=== PATIENT | female | born 1950 | race Caucasian/White ===

== ENCOUNTER → 2020-06-23 11:43 | Outpatient (BNVA) | payer MEDICARE, SELFPAY | PROVIDERS: PCP Family Medicine; Visit Provider Internal Medicine Gastroenterology | DX: R19.4 Change in bowel habit (principal); R13.10 Dysphagia, unspecified; R63.0 Anorexia | CPT/HCPCS: 99212 ==

== ENCOUNTER 2020-07-11 10:10 | Day surgery (SDC) | payer MEDICARE, SELFPAY ==
--- NOTE | 2020-07-10 12:03 | P.CONAN_ITS ---
Documented by User: Ricarda Hinton 07/10/20 12:07 HPI - Anesthesia Eval Consult details Narrative: 70yo F for Upper Endoscopy and Colonoscopy [facility] Past Medical History Medical History Asthma Dysphagia Migraine REJI on CPAP Peripheral neuropathy Sclerosing mesenteritis Sjogren's syndrome SLE (systemic lupus erythematosus) Small fiber neuropathy Family History Family History (Updated 06/23/20 @ 09:25 by Zarina Hodgson MD) Family/Other No problems noted. Surgical History Surgical History (Updated 07/10/20 @ 12:05 by Ricarda Hinton) S/P appendectomy Social History Social History Alcohol intake: never Smoking Status: Never smoker Use of substances other than those prescribed or required for medical reasons: No Have you been hit, kicked, punched, or otherwise hurt by someone within the past year? If so, by whom?: No Advance Directives: No Advance Directives Information Provided: No Meds Allergies Allergy/AdvReac Type Severity Reaction Status Date / Time No Known Allergies Allergy Verified 06/23/20 09:50 Exam Exam Date and Time: July 10, 2020 1203 Assessment and Plan Assessment Anesthesia Assessment: Chart Reviewed Documented by User: Ya Gou 07/11/20 11:16 [facility] Past Medical History Medical History Asthma Dysphagia Migraine REJI on CPAP Peripheral neuropathy Sclerosing mesenteritis Sjogren's syndrome SLE (systemic lupus erythematosus) Small fiber neuropathy Family History Family History (Updated 06/23/20 @ 09:25 by Zarina Hodgson MD) Family/Other No problems noted. Surgical History Surgical History (Updated 07/10/20 @ 12:05 by Ricarda Hinton) S/P appendectomy Social History Social History Alcohol intake: never Smoking Status: Never smoker Use of substances other than those prescribed or required for medical reasons: No Have you been hit, kicked, punched, or otherwise hurt by someone within the past year? If so, by whom?: No Advance Directives: No Advance Directives Information Provided: No Meds Allergies Allergy/AdvReac Type Severity Reaction Status Date / Time No Known Allergies Allergy Verified 06/23/20 09:50 Exam Airway Mallampati Class: I TM Dist: >3cm Neck ROM: Full Heart: RRR Lungs: CTA Assessment and Plan Assessment Anesthesia Assessment: Anesthesia Plan Discussed and Chart Reviewed Final Anesthetic Review NPO: Yes ASA Class: III Final Preanesthetic Review: Meds/Allgs Chart Reviewed, Consent Obtained/Reviewed and Anes Risks/Benef Reviewed Patient Risk: Intermediate Procedure Risk: Intermediate Anesthetic Plan Anesthetic Plan: MAC: Disposition: Standard PACU
[2020-07-11 11:08] VITALS: BP 115/71; PULSE 64; RESP 18; TEMP 36.3; O2SAT 96
--- NOTE | 2020-07-11 11:17 | MHC.SHP ---
Pre-Procedural Eval Section B Chief Complaint: dysphagia,change in bowel habit Relevant Social History: None Present Medications: see Short Stay Collaborative assessment Medical History: Significant History (hx of asthma, migraine, Kassy-on cpap, peripheral neuropathy, SLE,sjogrens syndrome, small fiber neuropathy, ) History of Previous Operations: Relevant previous surgery/procedure and date(s) (appendectomy, and c section) Allergies: Allergies Allergy/AdvReac Type Severity Reaction Status Date / Time No Known Allergies Allergy Verified 06/23/20 09:50 Review of Systems Sugical H&P ROS: Negative: Constitution, Cardiovascular, Respiratory, Neurological, Psychiatric, Hem-Onc, Allergic/Immunologic, Gastrointestinal, Genitourinary, Musculoskeletal, Integumentary, Endocrine and Eyes/Ears/Nose/Throat Exam Surgical H&P Exam: Normal: HEENT, Normal: Heart, Normal: Lungs, Normal: Extremities, Normal: Abdomen, Normal: Skin and Normal: Neurological Plan Diagnosis/Plan: Unchanged Patient has been examined and remains a candidate for the planned procedure
--- NOTE | 2020-07-11 11:18 | PM.OP ---
Brief Operative Note Date of Service: 07/11/20 Pre-op diagnosis: dysphagia, altered bowel habits Post-op diagnosis: same Procedure: see op note Surgeon: Zairna Hodgson MD Anesthesia: MAC Estimated blood loss (mL): 0 Condition: stable Disposition: PACU
--- NOTE | 2020-07-11 11:19 | P.OP_ITS ---
Operative Note Operative Note Date of Service: 07/11/20 Narrative: Operative Information Procedure Description: EGD, Colonoscopy FLEXIBLE TRANSORAL UPPER GASTROINTESTINAL ENDOSCOPY AND COLONOSCOPY PROCEDURE NOTE UPPER ENDOSCOPY Consent: Indications for the procedure and potential complications of bleeding, perforation, reaction to medications and missed diagnosis were discussed with the patient and informed consent was obtained. Instrument: Olympus GIF H 190 J mid size upper endoscope Monitoring: Vital signs and clinical assessment, continuous EKG monitoring, Pulse oximetry, Carbon Dioxide monitoring and blood pressure monitoring were done throughout the procedure. Procedure: The patient was placed in the left lateral decubitis position and pre-procedure medications were administered and a bite block was placed. The endoscope was inserted into the mouth and advanced under direct vision to the third part of duodenum. A careful inspection was made as the upper endoscope was withdrawn including a retroflexed examination of the proximal stomach; Findings and interventions are described below. Findings: Larynx:normal Esophagus: GE junction at 37 cm, diaphragm hiatus at 37 cm, mild esophagitis, random esophageal and GEJ bx taken. 20 mm balloon stretched at GEJ and mid esophagus and upper esophagus. Small tear noted in GEJ. Stomach: Erosive gastritis. Biopsies were obtained. Grade 2 flap valve on retroflexed examination of the cardia. Duodenum: Bulbar duodenitis Intervention: Biopsies as noted above COLONOSCOPY Instrument: Olympus variable stiffness pediatric scope 190L Colonoscopy Monitoring: Vital signs and clinical assessment, continuous EKG monitoring, Pulse oximetry, Carbon Dioxide monitoring and blood pressure monitoring were done throughout the procedure. Colon withdrawal time was 9 minutes. Procedure: The patient was placed in the left lateral decubitis position and pre-procedure medications were administered. After a digital rectal examination of the ano-rectum, the video colonoscope was inserted into the rectum and advanced through the colon to the cecum/TI. The colonoscope was slowly withdrawn in a retrograde panoramic fashion and the colon mucosa was carefully examined including a retroflexed view of the rectum. Findings and interventions are described below. Procedure Difficulty:moderate difficulty, redundant colon, pressure applied Williamson diverticulosis severe in transverse Findings: Random colon bx taken, mild melanosis coli in rectum and left colon Terminal Ileum-normal, bx taken Cecum:normal Ascending Colon: normal Transverse Colon -normal Descending Colon:4-5 sessile polyp removed with forceps Sigmoid Colon: normal Rectum: Retroflexion with small internal hemorrhoids, grade I Anorectum - normal Colon preparation: [place] Bowel Preparation Scale Right colon; 2 Transverse colon: 3 Left colon; 2 (0 = Unprepared colon segment with mucosa not seen due to solid stool that cannot be cleared. 1 = Portion of mucosa of the colon segment seen, but other areas of the colon segment not well seen due to staining, residual stool and/or opaque liquid. 2 = Minor amount of residual staining, small fragments of stool and/or opaque liquid, but mucosa of colon segment seen well. 3 = Entire mucosa of colon segment seen well with no residual staining, small fragments of stool or opaque liquid) Impression and Post Procedure Diagnosis: Endoscopy Findings: esophagitis erosive gastritis duodenitis esophageal stricture Colonoscopy Findings: internal hemorrhoids diverticulosis polyp Plan: Await Pathology results Repeat Colonoscopy in 5 years if adenoma polyp, 10 yrs if hyperplastic or earlier if clinically indicated High fiber diet leaflet avoid straining at stool, epsom salts and sitz bath, anusol supps or cream check NSAID and PPi hx, specimens sent for staining for amyloid, mast cell and IGg4 Above findings were reviewed with the patient and relevant handouts were provided if indicated.
[2020-07-11 11:21] VITALS: BMI 23.3
[2020-07-11 12:30] VITALS: BP 106/65; PULSE 64; RESP 14; TEMP 36.4; O2SAT 99
[2020-07-11 12:45] VITALS: BP 104/71; PULSE 62; RESP 16; TEMP 36.4; O2SAT 99
--- NOTE | 2020-07-11 13:09 | HO.POSTANES ---
Post Anesthesia Evaluation Post Anesthesia Evaluation Vital Signs: Vital Signs Temp Pulse Resp BP Pulse Ox 07/11/20 12:45 97.5 F 62 16 104/71 99 07/11/20 12:30 97.5 F 64 14 106/65 99 07/11/20 11:08 97.4 F 64 18 115/71 96 Anesthesia: Monitored Mental Status: Awake Pain Control: Satisfactory Nausea/Vomiting: None Hydration: Adequate Anesthesia-Related Issues: No Anes. Related Issues
== END 2020-07-11 13:49 | disposition home or self-care (01) ==
PROVIDERS: PCP Family Medicine; Visit Provider Internal Medicine Gastroenterology
PROC: (CPT 43239; principal; 2020-07-11 11:30)
DX: K22.2 Esophageal obstruction (principal); K20.90 Esophagitis, unspecified without bleeding; K25.9 Gastric ulcer, unspecified as acute or chronic, without hemorrhage or perforation; K29.80 Duodenitis without bleeding; R19.4 Change in bowel habit; K57.30 Diverticulosis of large intestine without perforation or abscess without bleeding; K63.5 Polyp of colon; K64.0 First degree hemorrhoids; K63.89 Other specified diseases of intestine; Q43.8 Other specified congenital malformations of intestine; G62.9 Polyneuropathy, unspecified
CPT/HCPCS: 43239; 43249; 45380; 88305; 88313; 88341; 88342; C1726; J2250; J2405

== ENCOUNTER → 2020-08-25 10:16 | Outpatient (BNVA) | payer MEDICARE, SELFPAY | PROVIDERS: PCP Family Medicine; Visit Provider Internal Medicine Gastroenterology | DX: Z13.89 Encounter for screening for other disorder (principal) | CPT/HCPCS: Q3014 ==

== ENCOUNTER → 2020-11-06 10:10 | Outpatient (BNVA) | payer MEDICARE, SELFPAY | PROVIDERS: PCP Family Medicine; Visit Provider Internal Medicine Gastroenterology | DX: Z13.89 Encounter for screening for other disorder (principal) | CPT/HCPCS: Q3014 ==

== ENCOUNTER → 2020-12-26 10:15 | Outpatient (BNVA) | payer MEDICARE, SELFPAY | PROVIDERS: PCP Family Medicine; Visit Provider Internal Medicine Gastroenterology | CPT/HCPCS: Q3014 ==

== ENCOUNTER → 2021-02-27 08:10 | Outpatient (REF) | payer MEDICARE, SELFPAY ==
--- NOTE | ~2021-02-27 | NM_ITS ---
EXAMINATION: RADIONUCLIDE SOLID FOOD GASTRIC EMPTYING 4-HOUR STUDY CLINICAL INFORMATION: Early satiety. COMPARISON: No previous imaging studies are available for comparison. TECHNIQUE: A standard meal consisting of 4 oz of Egg Beaters brand tagged was 1.0 mCi Tc-99m Sulfur Colloid, 8 oz water and 2 slices of toast with jelly was administered orally to the patient. Images were obtained using a dual head gamma camera in the anterior and posterior projections over of the stomach immediately post ingestion and at hourly intervals up to 3 hours post ingestion. Images were not obtained at 4 hours due to the minimal retention at 3 hours. The anterior and posterior counts at each time interval were averaged using the geometric mean and expressed as percentage of the immediate post ingestion counts. FINDINGS: There is good visualization of activity in the stomach immediately post ingestion. As the study progresses, there is good clearance of activity from the stomach and visualization of progressively increasing small bowel activity. By the end of the study, there is almost no retention noted in the stomach. Retention in the stomach at each time interval was: 1 hour 54% (normal 37%-90%) 2 hours 6% (normal 30%-60%) 3 hours 1% 4 hours (Not Obtained) (normal 0%-10%) NM/NM gastric emptying study IMPRESSION: Normal solid food gastric emptying study.
== END ==
LOC: HO.NUCMED 08:10
PROVIDERS: PCP Family Medicine; Visit Provider Internal Medicine Gastroenterology
DX: R68.81 Early satiety (principal)
CPT/HCPCS: 78264; A9541

== ENCOUNTER → 2021-05-01 09:06 | Outpatient (BNVA) | payer MEDICARE, SELFPAY | PROVIDERS: PCP Family Medicine; Referring Provider Family Medicine; Visit Provider Internal Medicine Gastroenterology | DX: K52.9 Noninfective gastroenteritis and colitis, unspecified (principal) | CPT/HCPCS: 99212 ==

== ENCOUNTER 2021-05-17 15:19 | Outpatient (REF) | payer MEDICARE, SELFPAY ==
[2021-05-23 00:06] LABS: Calprotectin, Fecal <5 mcg/g
[2021-05-23 22:21] LABS: Pancreatic Elastase-1 >500 mcg/g
== END 2021-05-17 15:20 | disposition home or self-care (01) ==
LOC: HO.LNP 15:19
PROVIDERS: Visit Provider Internal Medicine Gastroenterology
DX: K52.9 Noninfective gastroenteritis and colitis, unspecified (principal); R19.4 Change in bowel habit
CPT/HCPCS: 82656; 83993

== ENCOUNTER 2021-06-12 13:41 | Outpatient (REF) | payer MEDICARE, SELFPAY ==
--- NOTE | ~2021-06-12 | CT_ITS ---
EXAMINATION: CT ENTEROGRAPHY ABDOMEN AND PELVIS WITH CONTRAST CLINICAL INFORMATION: Periumbilical pain COMPARISON: None TECHNIQUE: Study performed with oral VoLumen (1350 mL) and 480 mL of water to distend the abdomen. The patient was injected with 85 mL Omnipaque 350 intravenous contrast which was administered without adverse effect. Coronal and sagittal reformatted images were obtained at the technologist's workstation. This CT examination was performed using dose optimization techniques as appropriate, variously including the following: *Automated exposure control *Adjustment of mA and/or kV according to patient size (this includes techniques or standardized protocols for targeted exams where dose is matched to indication/reason for exam; i.e. extremities or head) *Use of iterative reconstruction technique DLP: 262 mGy-cm FINDINGS: GASTROINTESTINAL FINDINGS: Stomach: The stomach is very distended. The stomach is otherwise normal in appearance. Small intestine: Satisfactorily distended and normal in appearance. Large intestine: Well-distended. There is diverticulosis of the colon. No evidence of diverticulitis or colitis is seen.. No perirectal changes demonstrated. The appendix is not seen. Additional findings: No abnormal enhancement of the vasa recta or significant mesenteric or retroperitoneal lymphadenopathy is seen. No abdominal abscess or fistulous tract demonstrated. ABDOMINAL AND PELVIC CT FINDINGS: Liver, gallbladder, biliary tract: Normal Pancreas: Normal Spleen: Normal Adrenal glands and kidneys: There is a small cyst in the lower pole of the left kidney measuring 5 mm. No imaging follow-up needed. The kidneys are otherwise unremarkable. Ureters and bladder: There is a pessary in the pelvis. The bladder is not optimally distended. The uterus and adnexa are unremarkable. Lymphovascular structures: There are small small bowel mesentery lymph nodes and mild stranding of the small bowel mesentery fat. No enlarged lymph nodes are seen. No ascites. Bones: There is mild degenerative spondylosis of the spine. Lung bases: Normal. CT/CT enterography IMPRESSION: Very distended stomach. Diverticulosis of the colon. Shotty small bowel mesentery lymphadenopathy and mild stranding of the small bowel mesentery fat. Small left renal cyst. Appendix not seen.
[2021-06-12 14:41] LABS: Blood Urea Nitrogen 12 mg/dL (9-16); Estimated Glomerular Filt Rate 55
[2021-06-12] MEDS: iohexoL 350 MG/ML 100 ML INFUS..BTL IV (16:36)
[2021-06-12] MEDS: Sorbitol/Mannit/Xanth Imaging 500 ML LIQUID 1500 ML PO (16:38)
== END 2021-06-12 13:42 | disposition home or self-care (01) ==
LOC: HO.US 13:41
PROVIDERS: PCP Family Medicine; Visit Provider Internal Medicine Gastroenterology
DX: R13.10 Dysphagia, unspecified (principal); R10.33 Periumbilical pain; R19.4 Change in bowel habit; K22.2 Esophageal obstruction
CPT/HCPCS: 36415; 74177; 82565; 84520; Q9967

== ENCOUNTER → 2021-07-26 11:11 | Outpatient (BNVA) | payer MEDICARE, SELFPAY | PROVIDERS: PCP Family Medicine; Visit Provider Surgery | DX: K65.4 Sclerosing mesenteritis (principal) | CPT/HCPCS: 99202 ==

== ENCOUNTER 2021-08-02 10:23 | Day surgery (SDC) | payer MEDICARE, SELFPAY ==
[2021-07-26 13:39] VITALS: BMI 22.6
--- NOTE | 2021-08-01 10:38 | HO.ANESPROP2 ---
Documented by User: Ricarda Hinton NP 08/01/21 10:39 HPI - Anesthesia Eval Consult details Narrative: 71yo F for Upper Endoscopy PMFSH Active Problems Active Problems: All Active Problems (Updated 06/15/21 @ 19:47 by Zarina Hodgson MD) Sclerosing mesenteritis (Acute) Dysphagia (Acute) Esophageal stricture (Acute) Enteritis (Acute) Poor appetite (Acute) Altered bowel habits (Acute) Past Medical History Medical History Asthma Dysphagia Fatty liver Migraine REJI on CPAP Peripheral neuropathy Sclerosing mesenteritis Sjogren's syndrome SLE (systemic lupus erythematosus) Small fiber neuropathy Family History Family History Paternal Uncle No problems noted. Mother Hx of osteoporosis Father Hx of ulcer disease Surgical History Surgical History History of History of colonoscopy Hx of detached retina repair Hx of endoscopy S/P appendectomy Social History Social History Household Members: Children Alcohol intake: current Alcohol intake frequency: does not drink Patient Tobacco Use Status: Tobacco use Unknown Advance Directives Date on File: 07/11/20 Meds Allergies Allergy/AdvReac Type Severity Reaction Status Date / Time duloxetine [From Cymbalta] Allergy Hives Verified 08/02/21 11:19 Latex, Natural Rubber Allergy Itching Verified 08/02/21 11:19 penicillin G Allergy Hives Verified 08/02/21 11:19 sumatriptan [From Imitrex] Allergy Hives Verified 08/02/21 11:19 Home Medications Medication Instructions Recorded Confirmed Last Taken Type bupropion HCl 300 mg 24 hr tablet, 300 mg PO QAM 12/26/20 Unknown History extended release (Wellbutrin XL) estradiol 1 g VAGINAL 2XW 12/26/20 Unknown History hydroxychloroquine 200 mg tablet 200 mg PO DAILY 12/26/20 07/26/21 Unknown History (Plaquenil) lorazepam 1 mg tablet 1 mg PO BID 12/26/20 Unknown History zolpidem 10 mg tablet 10 mg PO BEDTIME PRN 12/26/20 Unknown History bupropion HCl 150 mg 24 hr tablet, 150 mg PO QAM 05/01/21 07/26/21 Unknown History extended release lorazepam 0.5 mg tablet 0.5 mg PO BID 05/01/21 Unknown History Exam Exam Date and Time: August 01, 2021 1038 Height,Weight and Vital Signs: Height 5 ft 2 in Weight 56.245 kg Pertinent Lab Results Pertinent Lab Results: Laboratory Tests 06/12/21 14:01 BUN 12 Creatinine 1.00 Assessment and Plan Assessment Anesthesia Assessment: Chart Reviewed Documented by User: Mukesh Reyes MD 08/02/21 15:00 PMFSH Past Medical History Medical History Asthma Dysphagia Fatty liver Migraine REJI on CPAP Peripheral neuropathy Sclerosing mesenteritis Sjogren's syndrome SLE (systemic lupus erythematosus) Small fiber neuropathy Family History Family History Paternal Uncle No problems noted. Mother Hx of osteoporosis Father Hx of ulcer disease Family history of problems with anesthesia: No Surgical History Surgical History History of History of colonoscopy Hx of detached retina repair Hx of endoscopy S/P appendectomy History of Problems with Anesthesia: No Social History Social History Household Members: Children Alcohol intake: current Alcohol intake frequency: does not drink Patient Tobacco Use Status: Tobacco use Unknown Advance Directives Date on File: 07/11/20 Meds Allergies Allergy/AdvReac Type Severity Reaction Status Date / Time duloxetine [From Cymbalta] Allergy Hives Verified 08/02/21 11:19 Latex, Natural Rubber Allergy Itching Verified 08/02/21 11:19 penicillin G Allergy Hives Verified 08/02/21 11:19 sumatriptan [From Imitrex] Allergy Hives Verified 08/02/21 11:19 Home Medications Medication Instructions Recorded Confirmed Last Taken Type bupropion HCl 300 mg 24 hr tablet, 300 mg PO QAM 12/26/20 Unknown History extended release (Wellbutrin XL) estradiol 1 g VAGINAL 2XW 12/26/20 Unknown History hydroxychloroquine 200 mg tablet 200 mg PO DAILY 12/26/20 07/26/21 Unknown History (Plaquenil) lorazepam 1 mg tablet 1 mg PO BID 12/26/20 Unknown History zolpidem 10 mg tablet 10 mg PO BEDTIME PRN 12/26/20 Unknown History bupropion HCl 150 mg 24 hr tablet, 150 mg PO QAM 05/01/21 07/26/21 Unknown History extended release lorazepam 0.5 mg tablet 0.5 mg PO BID 05/01/21 Unknown History Exam Airway Mallampati Class: II TM Dist: >3cm Neck ROM: Full Loose/Missing/Broken Teeth: Yes (temporary crown) Assessment and Plan Assessment Anesthesia Assessment: Anesthesia Plan Discussed Final Anesthetic Review Family History of Problems with Anesthesia: No History of Problems with Anesthesia: No NPO: Yes ASA Class: III Final Preanesthetic Review: No Changes in Pt Med Stat, Meds/Allgs Chart Reviewed, Consent Obtained/Reviewed and Anes Risks/Benef Reviewed Patient Risk: Low Procedure Risk: Low Anesthetic Plan Anesthetic Plan: MAC: Disposition: Standard PACU
--- NOTE | 2021-08-02 11:44 | P.HPSUR_ITS ---
Pre-Procedural Eval Section A Date of Service: 08/02/21 Section B Chief Complaint: noninfective gastroenteritis and colitis Details of Present Illness: ABDOMINAL PAIN Relevant Family History (Specify if Yes): No Relevant Social History: None Present Medications: see Short Stay Collaborative assessment Medical History: Significant History (Asthma Dysphagia Migraine REJI on CPAP Pe ripheral neuropathy Sclerosing mesenteritis Sjogren's syndrome SLE (systemic lupus erythematosus) Small fiber neuropathy) History of Previous Operations: Relevant previous surgery/procedure and date(s) (History of History of colonoscopy Hx of endoscopy S/P appendectomy) Allergies: Allergies Allergy/AdvReac Type Severity Reaction Status Date / Time duloxetine [From Cymbalta] Allergy Hives Verified 08/02/21 11:19 Latex, Natural Rubber Allergy Itching Verified 08/02/21 11:19 penicillin G Allergy Hives Verified 08/02/21 11:19 sumatriptan [From Imitrex] Allergy Hives Verified 08/02/21 11:19 Review of Systems Sugical H&P ROS: Negative: Constitution, Cardiovascular, Respiratory, Neurological, Psychiatric, Hem-Onc, Allergic/Immunologic, Gastrointestinal, Genitourinary, Musculoskeletal, Integumentary, Endocrine and Eyes/Ears/Nose/Thro at Exam Surgical H&P Exam: Normal: HEENT, Normal: Heart, Normal: Lungs, Normal: Extremities, Normal: Abdomen, Normal: Skin and Normal: Neurological Plan Diagnosis/Plan: Unchanged I have reviewed the history and physical and performed a pertinent physical examination on my patient. No changes have occurred unless specified.
[2021-08-02 12:11] VITALS: BP 110/71; PULSE 60; RESP 16; TEMP 36.4; O2SAT 98
[2021-08-02] MEDS: Lactated Ringers 1,000 ML 100 ML IVCONT (12:12)
--- NOTE | 2021-08-02 12:55 | PM.OP ---
Brief Operative Note Date of Service: 08/02/21 Pre-op diagnosis: ABDOMINAL Pain Post-op diagnosis: same Procedure: see op note Surgeon: Zarina Hodgson MD Anesthesia: MAC Was an Financial Aid Coordinator used for this Procedure?: No Estimated blood loss (mL): 0 Condition: stable Disposition: PACU
--- NOTE | 2021-08-02 12:56 | W.PM.OPN ---
Operative Note Operative Note Date of Service: 08/02/21 Narrative: Procedure Description: EGD FLEXIBLE TRANSORAL UPPER GASTROINTESTINAL ENDOSCOPY UPPER ENDOSCOPY Consent: Indications for the procedure and potential complications of bleeding, perforation, reaction to medications and missed diagnosis were discussed with the patient and informed consent was obtained. Instrument: Olympus GIF H 190 J mid size upper endoscope Monitoring: Vital signs and clinical assessment, continuous EKG monitoring, Pulse oximetry, Carbon Dioxide monitoring and blood pressure monitoring were done throughout the procedure. Procedure: The patient was placed in the left lateral decubitis position and pre-procedure medications were administered and a bite block was placed. The endoscope was inserted into the mouth and advanced under direct vision to the third part of duodenum. A careful inspection was made as the upper endoscope was withdrawn including a retroflexed examination of the proximal stomach; Findings and interventions are described below. Findings: Larynx:normal Esophagus: GE junction at 37 cm, diaphragm hiatus at 37 cm, mild esophagitis, bx taken from GEJ and random esophagus in separate jars Stomach: Patchy gastric erythema. Biopsies were obtained. Grade 2 flap valve on retroflexed examination of the cardia. Duodenum: Mild bulbar duodenitis , bx taken Intervention: Biopsies as noted above, staining for mast cell, amyloid and IgG4 Impression/Findings: esophagitis gastritis duodenitis PLAN: await pathology
[2021-08-02 13:04] VITALS: BP 99/52; PULSE 73; RESP 15; TEMP 36.3; O2SAT 99
[2021-08-02 13:19] VITALS: BP 98/60; PULSE 73; RESP 16; O2SAT 97
[2021-08-02 13:34] VITALS: BP 115/77; PULSE 64; RESP 16; TEMP 36.3; O2SAT 97
== END 2021-08-02 14:15 | disposition home or self-care (01) ==
PROVIDERS: PCP Family Medicine; Visit Provider Internal Medicine Gastroenterology
PROC: 0DJ08ZZ Inspection of Upper Intestinal Tract, Via Natural or Artificial Opening Endoscopic (ICD-10-PCS; CPT 43235; principal; 2021-08-02 12:20)
DX: K52.9 Noninfective gastroenteritis and colitis, unspecified (principal); K29.50 Unspecified chronic gastritis without bleeding; K29.80 Duodenitis without bleeding; K20.90 Esophagitis, unspecified without bleeding; K44.9 Diaphragmatic hernia without obstruction or gangrene; G47.33 Obstructive sleep apnea (adult) (pediatric); G62.89 Other specified polyneuropathies; G43.909 Migraine, unspecified, not intractable, without status migrainosus; J45.909 Unspecified asthma, uncomplicated; M32.9 Systemic lupus erythematosus, unspecified; M35.00 Sjogren syndrome, unspecified; Z99.89 Dependence on other enabling machines and devices; Z91.040 Latex allergy status
CPT/HCPCS: 43239; 88305; 88313; 88341; 88342

== ENCOUNTER → 2021-08-28 13:00 | Outpatient (BNVA) | payer MEDICARE, SELFPAY | PROVIDERS: PCP Family Medicine; Visit Provider Internal Medicine Gastroenterology | CPT/HCPCS: Q3014 ==

== ENCOUNTER → 2021-10-02 14:23 | Outpatient (BNVA) | payer MEDICARE, SELFPAY | PROVIDERS: PCP Family Medicine; Visit Provider Surgery | DX: K65.4 Sclerosing mesenteritis (principal) | CPT/HCPCS: 99212 ==

== ENCOUNTER → 2021-11-26 14:44 | Outpatient (BNVA) | payer MEDICARE, SELFPAY | PROVIDERS: PCP Family Medicine; Visit Provider Internal Medicine Gastroenterology | DX: R10.9 Unspecified abdominal pain (principal) | CPT/HCPCS: Q3014 ==

== ENCOUNTER → 2022-03-29 10:58 | Outpatient (BNVA) | payer MEDICARE, SELFPAY | PROVIDERS: PCP Family Medicine; Visit Provider Internal Medicine Gastroenterology | DX: R10.9 Unspecified abdominal pain (principal) | CPT/HCPCS: 99212 ==

== ENCOUNTER → 2022-08-02 10:29 | Outpatient (BNVA) | payer MEDICARE, SELFPAY | PROVIDERS: PCP Family Medicine; Visit Provider Internal Medicine Gastroenterology | DX: R10.9 Unspecified abdominal pain (principal); K31.84 Gastroparesis; G62.9 Polyneuropathy, unspecified; G90.1 Familial dysautonomia [Riley-Day] | CPT/HCPCS: Q3014 ==

== ENCOUNTER 2025-05-11 11:48 | Outpatient (REF) | payer MEDICARE, SELFPAY ==
--- OUTSIDE RECORDS SUMMARY | 2011-08-22 01:00 | XMS_ITS | Encounter Summary ---
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 Phone Unavailable Primary Care Provider Unavailabl e Encounter Details Date Type Department Care Team (Late st Contact Info) Description 08/22/2011 Hospital Encounter [facility],Outside Imaging [address] [place] [address] System, Provider Not In, PhD [facility] [address] [place] [address] Social History Tobacco Use Types Packs/Day Years Used Date Smoking Tobacco: Former Cigarettes 2 18.9 1 968 - 06/26/1986 Passive Smoke Exposure: Never Smokeless Tobacco: Never Alcohol Use Standard Drinks/Week Comments No 0 (1 standard drink = 0.6 oz pur e alcohol) Child or Family Care Answer Date Record ed Do you have problems with on e of the following making it difficult for you to work, study, or receive health care? Family care (i.e. spouse, parents, other family) 08/21/2023 Education Answer Date Recorded Are you interested in more education? Not on magdy e 12/13/2022 Are you concerned about learning? Not on file 12/13/2022 No 12/13/2022 No 12/13/2022 Food Answer Date Recorded Within the past 6 months we worried whether our food would run out before we got money to buy more. I choose not to answer 08/21/2023 Within the past 6 months the food we bought just didn't last and we didn't have enough money to get more. I choose not to answer 08/21/2023 Residential Stability Answer Date Recor ded What is your housing situation today? I have salo lopez 08/21/2023 How many times have you move d in the past 12 months? Zero (I did not move) 08/21/2023 Paying for Meds Answer Date Recorded Do you have trouble paying for medicines? I hanny se not to answer 08/21/2023 Paying Utility Bills Answer Date Record ed Do you have trouble paying your heating or elect ricity bill? Yes 08/21/2023 Transportation Answer Date Recorded Has the lack of transportati on kept you from medical appointments or from getting medications? No 08/21/2023 Digital Access Answer Date Recorded No 08/21/2023 Yes 08/21/2023 Do you have reliable internet access at home? Ye s 08/21/2023 Do you have a device (e.g., phone, tablet, computer) with a working camera? Yes 08/21/2023 Intimate Partner Violence Answer Date R ecorded Are you denied basic needs s uch as food, clothing, or medical care? No 09/14/2024 In the past 12 months have y ou been in a relationship with a person who hurts, threatens, or tries to control you? No 09/14/2024 Are you denied basic needs s uch as food, clothing, or medical care? No 09/14/2024 In the past 12 months have y ou been in a relationship with a person who hurts, threatens, or tries to control you? No 09/14/2024 Comments No Sex and Gender Information Value Date Recorded Sex Assigned at Female 09/05/2021 7:38 PM EST Legal Sex Female 10:36 PM EDT Gender Identity Female 07/31/2020 7:39 AM EST Sexual Orientation Straight 07/31/2020 7: 39 AM EST documented as of this encounter Functional Status * Calculated C-SSRS Risk Score (Lifetime/Recent) Answer Date of Assessment Author No Risk Indicated 09/14/2024 1:25 PM Amina Odonnell, RN * [place] Suicide Severity Rating Scale (Screener/Recent Self-Report) Question Answer Date of Assessment Author 1. Wish to be (Past 1 Month) No 025 1:25 PM Amina Odonnell, WENDI 2. Non-Specific Active Suici jenaro Thoughts (Past 1 Month) No 09/14/2024 1:25 PM Amina Odonnell RN 6. Suicidal Behavior (Lifetime) No 1:25 PM Amina Odonnell RN documented as of this encounter Plan of Treatment Upcoming Encounters Date Type Department Care Team (Latest Contact Info) Description 05/17/2025 1:30 PM EDT Office Visit [address] [address] Dahiana Fabian [address] [place] [address], [address] [place] [address] [email or web address] Charan Jon, PT 4 [place], [place] [id number] 05/24/2025 2:15 PM EDT Office Visit [address] [address] Dahiana Fabian [address] [place] [address], [address] [place] [address] [email or web address] Charan Jon, PT 4 [place], [place] [id number] 05/31/2025 2:15 PM EDT Office Visit [address] [address] Dahiana Fabian [address] [place] [address], [address] [place] [address] [email or web address] Charan Jon, PT 4 [place], [place] [id number] 06/06/2025 1:20 PM EDT Ancillary Procedure [facility] [address] [place] [address] [address]rd Floor, [address] [place] [address] Kiko Lackey MD [address] [facility], [address] [place] [address] 06/07/2025 2:15 PM EDT Office Visit [address] [address] [facility] [address], [address] [place] [address] [email or web address] Charan Jon, PT 4 [place] [address] 06/10/2025 4:00 PM EDT Office Visit [address] [address] [facility] [address], [address] [place] [address] [email or web address] 06/14/2025 2:15 PM EDT Office Visit [address] [address] [facility] [address], [address] [place] [address] [email or web address] Charan Jon, PT 4 [place] [address] 06/21/2025 2:15 PM EST Office Visit [address] [address] [facility], [address] [place] [address] [email or web address] Charan Jon, PT 4 [place] [address] 07/18/2025 2:30 PM EST Office Visit [facility] [address] [place] [address] Janina Donohue MD [address] [facility], [address] [place] [address] [email or web address] 07/26/[email or web address] 3:00 PM EST Ancillary Procedure [facility] [address]rd Floor, [address] [place] [address] Brennan Childers MD [address] [facility], [address] [place] [address] [email or web address] documented as of this encounter Procedures Procedure Name Priority Date/Time Associated Diagnosis Comments BI MAMMOGRAM OUTSIDE (NO INTERPRETATION) Routine 08/22/2011 12:00 AM EST documented in this encounter Results * Mammogram Outside (No Interpretation) (08/22/2011 12:00 AM EST) Narrative SYSTEMGENERATED, DOCUMENTATION - 02/13/2018 12:03 PM EDT This study is for PACS storage only and not for interpretation. us Provider Not In System PhD IMG OUTSIDE IMAGING W /OUT INTERPRETATION Final Result documented in this encounter Visit Diagnoses Not on filedocumented in this encounter Additional Health Concerns Infection Onset Date Last Indicated Resolved Time CoV-Risk 09/21/2024 09/21/2024 09/21/2024 2:57 PM EST COVID-19 09/21/2024 09/21/2024 10/12/2024 1:21 AM EST documented as of this encounter Additional Source Comments The information contained in this document represents components of the legal health record. It is not the complete legal health record.[facility]
--- OUTSIDE RECORDS SUMMARY | 2011-08-22 01:15 | XMS_ITS | Encounter Summary ---
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,Outside Imaging [address] [place] [address] System, Provider Not In, PhD [facility] 2 [place] [address] Social History Tobacco Use Types Packs/Day Years [...] Author No Risk Indicated 09/14/2024 1:25 PM EST Amina Dick, WENDI * [place] Suicide Severity Rating Scale (Screener/Recent Self-Report) Question Answer Date of Assessment Author 1. Wish to be (Past 1 Month) No 025 1:25 PM Amina Odonnell, WENDI 2. Non-Specific Active Suici jenaro Thoughts (Past 1 Month) No 09/14/2024 1:25 PM Amina Odonnell, WENDI 6. Suicidal Behavior (Lifetime) No 1:25 PM Amina Odonnell, WENDI documented as of this encounter Plan of Treatment Upcoming Encounters Date Type Department Care Team (Latest Contact Info) Description 05/17/2025 1:30 PM EDT Office Visit [address] [address] Dahiana Fabian [address] [place] [address], [address] [place] [address] [email or web address] Charan Jon, PT 4 [place], [place] [phone] [email or web address] 05/24/2025 2:15 PM EDT Office Visit [address] [address] Dahiana Fabian [address] [place] [address], [address] [place] [address] [email or web address] Charan Jon, PT 4 [place], [place] [id number] [email or web address] 05/31/2025 2:15 PM EDT Office Visit [address] [address] Dahiana Fabian [address] [place] [address], [address] [place] [address] [email or web address] Charan Jon, PT 4 [place], [place] [id number] [email or web address] 06/06/2025 1:20 PM EDT Ancillary Procedure [facility] [address] [place] [address] 3rd Floor, [address] [place], [place] [id number] Kiko Minor MD [address] [facility], [address] [place] [address] 06/07/2025 2:15 PM EDT Office Visit [address] [address] [facility] [address], [address] [place] [address] [email or web address] Charan Jon, PT 4 [place] [address] [email or web address] 06/10/2025 4:00 PM EDT Office Visit [address] [address] [address], [address] [place] [address] [email or web address] 06/14/2025 2:15 PM EDT Office Visit [address] [address], [address] [place] [address] [email or web address] Charan Jon, PT 4 [place] [address] 06/21/2025 2:15 PM EST Office Visit [address] [address] [address], [address] [place] [address] [email or web address] Charan Jon, PT 4 [place] [address] 07/18/2025 2:30 PM EST Office Visit [facility] [address] [place] [address] Janina Donohue MD [address] [facility], [address] [place] [address] [email or web address] 07/26/2025 3:00 PM EST Ancillary Procedure [facility] [address] 3[address], [address] [place] [address] Brennan Childers MD [address] [facility], [address] [place] [address] [email or web address] documented as of this encounter Procedures Procedure Name Priority Date/Time Associated Diagnosis Comments BI US BREAST OUTSIDE (NO INTERPRETATION) Routine 08/22/2011 12:15 AM EST documented in this encounter Results * US Breast Outside (No Interpretation) (08/22/2011 12:15 AM EST) Narrative SYSTEMGENERATED, DOCUMENTATION - 02/13/2018 12:04 PM EDT This study is for PACS [...] It is not the complete legal health record.[facility]
--- OUTSIDE RECORDS SUMMARY | 2025-05-05 13:45 | XMS_ITS | Encounter Summary ---
Author Organization [facility] Address [address] [place] [address] [place] [phone] Phone Care Team Providers Care Dough Molder Hand Name Role Phone Dahiana Fabian Primary Care Provider [phone] Clary Morgan MD Unavailable [phone] Reason for Visit * Auth/Cert (Routine) Specialty Diagnoses / Procedures Referred By Juana martinez Referred To Contact Referral ID Status Reason Start Date Expiration Date Visits Re quested Visits Authorized [id number] 1 1 Encounter Details Date Type Department Care Team (Latest Contact Info) Description 05/05/2025 1:45 PM EDT - 05/05/2025 11:59 PM EDT Hospital Encounter [facility], Bone Density - [address] [address] Janina Donohue MD [address] [facility], [address] [place] [address] [email or web address] Discharge Disposition: Home or Self Care Social History Tobacco Use Types Packs/Day Years [...] is your housing situation today? I have salorosalina lopez 08/21/2023 How many times have you [...] AM EST documented as of this encounter Medications at Time of Discharge albuterol 90 mcg/actuation inhaler Inhale 1 puff into the lungs every 4 (four) hours as needed for shortness of breath/dyspnea. atorvastatin (LIPITOR) 20 MG tablet Take 20 mg by mouth daily. buPROPion (WELLBUTRIN XL) 300 MG ER 24 hr tablet Take 300 mg by mouth daily. cholecalciferol (VITAMIN D3) 2,000 unit tabletIndications:V itamin D insufficiency Take 1 tablet (2,000 Units total) by mouth daily. 90 tablet 1 02/25/2025 diclofenac sodium (VOLTAREN) 1 % Gel Apply 2 g topically as needed. EPINEPHrine (EPIPEN 2-PIYUSH) 0.3 mg/0.3 mL auto-injector Inject 0.3 mL (0.3 mg total) into the muscle as needed for anaphylaxis. 2 each 1 12/21/2024 estradioL (ESTRACE) 0.01 % (0.1 mg/gram) vaginal cream Place 2 g vaginally every 7 days. finasteride (PROSCAR) 5 mg tablet Take 1 tablet by mouth as needed. 01/31/2025 gabapentin (NEURONTIN) 250 mg/5 mL (5 mL) SolnIndications:Scl erosing mesenteritis Take 2 mL (100 mg total) by mouth nightly at bedtime. 360 mL 11/15/2024 hydroxychloroquine (PLAQUENIL) 200 mg tabletIndications:O ther forms of systemic lupus erythematosus, unspecified organ involvement status,Sjogren's syndrome, with unspecified organ involvement TAKE ONE TABLET BY MOUTH EVERY DAY 90 tablet 3 09/27/2024 Lactobacillus acidophilus (PROBIOTIC ORAL) Take by mouth daily. LORazepam (ATIVAN) 1 MG tablet as needed. 02/23/2025 magnesium chloride 64 mg TbECIndications:uns ure strength Take by mouth daily. Indications: unsure strength Medication-Free Text Ultra thistle metroNIDAZOLE (METROCREAM) 0.75 % cream as needed. 01/25/2025 omega 7-rhc-yxu-fish oil (FISH OIL) 1,000 (120-180) mg Cap Take 2 capsules by mouth daily. omeprazole (PRILOSEC) 40 MG capsule TAKE 1 CAPSULE(40 MG) BY MOUTH DAILY 90 capsule 3 02/14/2025 QUERCETIN ORAL Take by mouth. R-LIPOIC ACID ORAL Take by mouth. valACYclovir (VALTREX) 1000 MG tabletIndications:R ecurrent oral herpes simplex Take 2 tabs (2000mg) x 1 day as soon as symptoms start. 6 tablet 3 12/01/2024 zolpidem (AMBIEN) 10 mg tabletIndications:P rimary insomnia TAKE 1 TABLET BY MOUTH DAILY AT BEDTIME NEEDED 05/20/2024 temazepam (RESTORIL) 15 mg capsule Take 2 capsules (30 mg total) by mouth nightly at bedtime as needed for anxiety. 60 capsule 5 04/07/2025 documented as of this encounter Plan of Treatment Upcoming Encounters Date Type Department Care Team (Latest Contact Info) Description 05/17/2025 1:30 PM EDT Office Visit [address] [address] Dahiana Fabian [address] [place] [address], [address] [place] [phone] [email or web address] Charan Jon, PT [address] [place] [address] 05/24/2025 2:15 PM EDT Office Visit [address] [address] Dahiana Faiban [address] [place] [address], [address] [place] [address] [email or web address] Charan Jon, PT [address], [place] [phone] 05/31/2025 2:15 PM EDT Office Visit [address] [phone] Dahiana Fabian [address] [place] [address], [address] [place] [address] [email or web address] Charan Jon, PT [address] [place] [address] 06/06/2025 1:20 PM EDT Ancillary Procedure [facility] [address] [place] [address] Dr [address] Floor, [address] [place] [address] Kiko Minor MD [address] [facility], [address] [place] [address] 06/07/2025 2:15 PM EDT Office Visit [address] [address] Dahiana Fabian [address] [place] [address], [address] [place] [phone] [email or web address] Charan Jon, PT [address] [place] [address] 06/10/2025 4:00 PM EDT Office Visit [address] [address] [address], [address] [place] [phone] [email or web address] 06/14/2025 2:15 PM EDT Office Visit [address] [address] Dahiana Fabian [address] [place] [address], [address] [place] [phone] [email or web address] Charan Jon, PT [address] [place] [address] 06/21/2025 2:15 PM EST Office Visit [facility] [address] [place], [place] [phone] Dahiana Fabian [address] [facility], [address] [place] [address] [email or web address] Charan Jon, PT [address], [place] [phone] 07/18/2025 2:30 PM EST Office Visit [facility] [address] [place] [address] [place] [address] Janina Donohue MD [address] [place] [address], [address] [place] [address] [email or web address] 07/26/2025 3:00 PM EST Ancillary Procedure [facility] [address] Floor, [address] [place] [address] Brennan Childers MD [address] [place] [address], [address] [place] [address] [email or web address] documented as of this encounter Procedures Procedure Name Priority Date/Time Associated Diagnosis Comments BD DXA AXIAL (SPINE) WITH HIP Routine 05/05/2025 2:05 PM EDT Osteopenia of multiple sites documented in this encounter Results * BD DXA AXIAL (SPINE) WITH HIP (05/05/2025 2:05 PM EDT) Anatomical Region Laterality Modality Bone Density Bone Density 05/05/2025 1:59 PM EDT Impressions 05/06/2025 12:37 PM EDT Interpretation: Osteopenia. Narrative 05/06/2025 12:37 PM EDT Referred By: JANINA DONOHUE I Indications: Osteopenia Scanner: IAT-Auto A with serial# of [id number] located at [facility] Bone Density Scan (DXA) 05/05/25 Details of prior DXA scans are available by clicking View Full Report BMD T- Z- Skeletal Site gm/cm2 score score BMD Change Since Prior Scan ------ ----- ----- PA Spine (L1 L2 L3) 0.922 -0.90 1.40 0.108 (13.3%)* since 11/21/2022 Total Hip (Left) 0.704 -1.90 -0.30 0.019 (stable) since 11/21/2022 Femoral Neck (Left) 0.591 -2.30 -0.40 -0.004 (stable) since 11/21/2022 ------ ----- ----- * Denotes significant change when >= 0.022 g/cm2 for the spine, 0.027 g/cm2 for the total hip, 0.029 g/cm2 for the femoral neck. Interpretation: Osteopenia. Technical Quality: The PA Spine scan was of marginal quality because of scoliosis (which can decrease or increase BMD). NOTE: We newly excluded one or more vertebrae. To allow comparisons with prior tests, we recalculated the total BMD of all prior spine tests after excluding the same vertebra(e). FRAX: A FRAX(r) score was not calculated because the patient indicated use of osteoporosis medication within the past 12 months. Reviewed By: Yuval Dozier MD on 05/06/2025 12:37:30 Additional Information: -World Health Organization criteria classify adults based on lowest T-score at PA spine, hip or forearm: Normal (T-score >= -1.0), Osteopenia (T-score between -1 and -2.5), or Osteoporosis (T-score <= -2.5). At [facility], T-scores are compared to peak bone density of a young white gender matched reference population. - For premenopausal women and men under the age of 50, Z-scores (comparison to age, gender, and ethnicity matched reference population) are used: Above expected range for age (Z-score >= 2.0), Within expected range of age (Z-score 1.9 to -1.9), or Below expected range for age (Z-score <= -2.0). - The Bone Health and Osteoporosis Foundation recommends that treatment be considered in men aged more than 50 years and in postmenopausal women with ANY of the following: Prior hip or vertebral fractures; T-score of <= -2.5 at the PA spine or hip; or 10 year fracture probability by FRAX of >= 3% for the hip or >= 20% for major osteoporotic fracture. - The FRAX algorithm (https://www.mily.ac.uk/FRAX/tool.aspx) is designed to predict 10-year fracture risk in treatment-naive adults between the ages of 40 and 90. It is not intended to be used in those receiving pharmacologic osteoporosis treatment. - The TBS is derived from the texture of the DXA spine image and has been shown to be related to bone microarchitecture and fracture risk. This data provides information independent of BMD value. It adds to fracture risk assessment with a FRAX adjusted for TBS score. If your patient had a TBS and qualified for a FRAX score, the reported FRAX score has been adjusted for TBS. TBS Score Interpretation 1.350 and greater Normal bone microarchitecture 1.200 to 1.350 Partially degraded bone microarchitecture 1.200 and less Degraded bone microarchitecture - Including race/ethnicity in the generation of T- or Z-scores or in the FRAX calculation is complicated, and currently undergoing active review to ensure that we can give patients the best information on their risk of fracture. - Some prior studies may not be compatible with our comparison software. - Click on View Full Report to see subsequent pages with images and prior bone density results. Procedure Note Yuval Dozier MD - 05/06/2025 Referred By: JANINA DONOHUE I Indications: Osteopenia Scanner: IAT-Auto A with serial# of [id number] located at [facility] Bone Density Scan (DXA) 05/05/25 Details of prior DXA scans are available by clicking View Full Report BMD T- Z- Skeletal Site gm/cm2 score score BMD Change Since Prior Scan ------ ----- PA Spine (L1 L2 L3) 0.922 -0.90 1.40 0.108 (13.3%)* since11/21/2022 Total Hip (Left) 0.704 -1.90 -0.30 0.019 (stable) since11/21/2022 Femoral Neck (Left) 0.591 -2.30 -0.40 -0.004 (stable) since11/21/2022 ------ ----- * Denotes significant change when >= 0.022 g/cm2 for the spine, 0.027g/cm2 for the total hip, 0.029 g/cm2 for the femoral neck. Interpretation: Osteopenia. Technical Quality: The PA Spine scan was of marginal quality because of scoliosis (which can decrease or increase BMD). NOTE: We newly excludedone or more vertebrae. To allow comparisons with prior tests, we recalculated the total BMD of all prior spine tests after excluding the samevertebra(e). FRAX: A FRAX(r) score was not calculated because the patient indicated use of osteoporosis medication within the past 12 months. Reviewed By: Yuval Dozier MD on 05/06/2025 12:37:30 Additional Information: -World Health Organization criteria classify adults based on lowestT-score at PA spine, hip or forearm: Normal (T-score >= -1.0), Osteopenia (T-score between -1 and -2.5), or Osteoporosis (T-score <= -2.5). At [facility], T-scores are compared to peak bone density of a young white gender matched reference population. - For premenopausal women and men under the age of 50, Z-scores(comparison to age, gender, and ethnicity matched reference population) are used:Above expected range for age (Z-score >= 2.0), Within expected range of age (Z-score 1.9 to -1.9), or Below expected range for age (Z-score <= -2.0). - The Bone Health and Osteoporosis Foundation recommends that treatment be considered in men aged more than 50 years and in postmenopausal women with ANY of the following: Prior hip or vertebral fractures; T-score of <= -2.5 at the PA spine or hip; or 10 year fracture probability by FRAX of >= 3%for the hip or >= 20% for major osteoporotic fracture. - The FRAX algorithm (https://www.mily.ac.uk/FRAX/tool.aspx) is designed to predict 10-year fracture risk in treatment-naive adultsbetween the ages of 40 and 90. It is not intended to be used in those receiving pharmacologic osteoporosis treatment. - The TBS is derived from the texture of the DXA spine image and has been shown to be related to bone microarchitecture and fracture risk. This data provides information independent of BMD value. It adds to fracture risk assessment with a FRAX adjusted for TBS score. If your patient had a TBSand qualified for a FRAX score, the reported FRAX score has been adjusted for TBS. TBS Score Interpretation 1.350 and greater Normal bone microarchitecture 1.200 to 1.350 Partially degraded bone microarchitecture 1.200 and less Degraded bone microarchitecture - Including race/ethnicity in the generation of T- or Z-scores or in the FRAX calculation is complicated, and currently undergoing active review to ensure that we can give patients the best information on their risk of fracture. - Some prior studies may not be compatible with our comparison software. - Click on View Full Report to see subsequent pages with images andprior bone density results. IMPRESSION: Interpretation: Osteopenia. us Janina Donohue MD IMG BD BONE DENSITY DEXA Final Result documented in this encounter Visit Diagnoses Diagnosis Osteopenia of multiple sites documented in this encounter Additional Health Concerns Assessment Noted Time PHQ-9 Depression Total Score: 8 09/10/19 24 12:31 PM EST PHQ-2 Depression Total Score: 2 06/07/20 2:03 PM EDT documented as of this encounter Care Teams Dough Molder Hand Relationship Specialty Start Date End Date Dahiana Fabian [address] [facility], [address] [place] [address] PCP - General Family Medicine 08/21/23 Clary Morgan MD [address] [address] Gastroenterology 11/15/24 documented as of this encounter Additional Source Comments The information contained in this document represents components of the legal health record. It is not the complete legal health record.[facility]
--- OUTSIDE RECORDS SUMMARY | 2025-05-11 14:46 | XMS_ITS | Encounter Summary ---
Author Organization [facility] Address [address] [place] [address] [place] [address] Phone Care Team Providers Care Surgical Attendant Name Role Phone Dahiana Fabian Primary Care Provider [phone] Clary Morgan MD Unavailable [phone] Encounter Details Date Type Department Care Team (Late st Contact Info) Description 06/24/2024 Procedure Pass [facility] [address] [place] [address] Social History Tobacco Use Types Packs/Day Years [...] as food, clothing, or medical care? No 06/07/2024 In the past 12 months have y ou been in a relationship with a person who hurts, threatens, or tries to control you? No 06/07/2024 Are you denied basic needs s uch as food, clothing, or medical care? No 06/07/2024 In the past 12 months have y ou been in a relationship with a person who hurts, threatens, or tries to control you? No 06/07/2024 Comments No Sex and Gender Information Value Date Recorded Sex Assigned at Female 09/05/2021 7:38 PM EST Legal Sex Female 10:36 PM EDT Gender Identity Female 07/31/2020 7:39 AM EST Sexual Orientation Straight 07/31/2020 7: 39 AM EST documented as of this encounter Plan of Treatment Upcoming Encounters Date Type Department Care Team (Latest Contact Info) Description 05/17/2025 1:30 PM EDT Office Visit [facility] [address] [place] [address] Dahiana Fabian [address] [place] [address], [address] [place] [address] [email or web address] Charan Jon, PT 4 [place] [address] 05/24/2025 2:15 PM EDT Office Visit [address] [address] Dahiana Fabian [address] [place] [address], [address] [place] [address] [email or web address] Charan Jon, PT 4 [place] [address] 05/31/2025 2:15 PM EDT Office Visit [address] [address] Dahiana Fabian [address] [place] [address], [address] [address] [email or web address] Charan Jon, PT 4 [place] [address] 06/06/2025 1:20 PM EDT Ancillary [facility] [address] [place] [address] 3rd Floor, [address] [place] [address] Kiko Minor MD [address] [place] [address], [address] [address] 06/07/2025 2:15 PM EDT Office Visit [address] [address] Dahiana Fabian [address] [place] [address], [address] [place] [address] [email or web address] Charan Jon, PT 4 [place] [address] 06/10/2025 4:00 PM EDT Office Visit [facility] [address] [place] [address] Dahiana Fabian [address] [place] [address], [address] [place] [address] [email or web address] 06/14/2025 2:15 PM EDT Office Visit [address], [address] [place] [address] [email or web address] Charan Jon, PT 4 [place] [address] 06/21/2025 2:15 PM EST Office Visit [address] [address] Dahiana Fabian [address] [place] [address], [address] [place] [address] [email or web address] Charan Jon, PT 4 [place] [address] 07/18/2025 2:30 PM EST Office Visit [facility] [address] [place] [address] Janina Donohue MD 22 [facility], [address] [place] [address] [email or web address] 07/26/2025 3:00 PM EST Ancillary Procedure [facility] [address] 3rd Floor, [address] [place] [address] Brennan Childers MD 22 [facility], [address] [place] [address] [email or web address] documented as of this encounter Visit Diagnoses Not on filedocumented in this encounter Additional Health Concerns Infection Onset Date Last Indicated Resolved Time CoV-Risk 09/21/2024 09/21/2024 09/21/2024 2:57 PM EST COVID-19 09/21/2024 09/21/2024 10/12/2024 1:21 AM EST Assessment Noted Time PHQ-9 Depression Total Score: 8 09/10/19 12:31 PM EST PHQ-2 Depression Total Score: 2 06/07/20 2:03 PM EDT documented as of this encounter Care Teams Surgical Attendant Relationship Specialty Start Date End Date Dahiana Fabian [address] [facility], [address] [place] [address] [email or web address] PCP - General Family Medicine 08/21/23 Clary Morgan MD [address] [facility] 5 [place] [address] [email or web address] Gastroenterology 11/15/24 documented as of this encounter Additional Source Comments The information contained in this document represents components of the legal health record. It is not the complete legal health record.[facility]
--- OUTSIDE RECORDS SUMMARY | 2025-05-11 14:46 | XMS_ITS | Encounter Summary ---
Author Organization [facility] Address [address] [facility] [address] [place] [address] Phone Care Team Providers Care Edi Manager Name Role Phone Dong [place] NP Unavailable [phone] Bianca Regan MD Unavailable Nestor Louis DO Primary Care Provider Robyn Aguayo MD Unavailable [phone] Lisa Duff MD Primary Care Provider [phone] Lisa Duff MD Primary Care Provider [phone] Martin Wright DO Primary Care Provider Dahiana Fabian Primary Care Provider Clary Morgan MD Unavailable [phone] Encounter Details Date Type Department Care Team (Late st Contact Info) Description 10/05/2019 Ancillary Orders [facility] 10 [place], [place] [id number] Xochitl Irizarry MD 22 [facility], [address] [place], [place] [address] Pain in breast Social History Tobacco Use Types Packs/Day Years Used Date Smoking Tobacco: Former Cigarettes Q uit: 06/26/1986 Smokeless Tobacco: Never Alcohol Use Standard Drinks/Week Comments No 0 (1 standard drink = 0.6 oz pur e alcohol) Comments No Sex and Gender Information Value Date Recorded Sex Assigned at Female 09/05/2021 7:38 PM EST Legal Sex Female 10:36 PM EDT Gender Identity Female 07/31/2020 7:39 AM EST Sexual Orientation Straight 07/31/2020 7: 39 AM EST documented as of this encounter Plan of Treatment Upcoming Encounters Date Type Department Care Team (Latest Contact Info) Description 05/17/2025 1:30 PM EDT Office Visit [address] [address] Jude Fabiania [address] [place] [address], [address] [place] [address] [email or web address] Charan Jon, PT 4 [place], [place] [phone] 05/24/2025 2:15 PM EDT Office Visit [address] [phone] Jude Fabiania [address] [place] [address], [address] [place] [address] [email or web address] Charan Jon, PT 4 [place], [place] [address] 05/31/2025 2:15 PM EDT Office Visit [address] [phone] Dahiana Fabian [address] [place] [address], [address] [place] [address] [email or web address] Charan Jon, PT 4 [place], [place] [id number] 06/06/2025 1:20 PM EDT Ancillary Procedure [facility] [address] [place] [address] Dr 3rd Floor, [address] [place] [address] Kiko Minor MD 22 [facility], [address] [place] [address] 06/07/2025 2:15 PM EDT Office Visit [address] [address] [facility] [address], [address] [place] [address] [email or web address] Charan Jon, PT 4 [place] [address] 06/10/2025 4:00 PM EDT Office Visit [address] [place] [address] Flum-Kristian Dahiana[address], [address] [place] [address] [email or web address] 06/14/2025 2:15 PM EDT Office Visit [address] [address] [address], [address] [place] [address] [email or web address] Charan Jon, PT 4 [place], [place] [phone] 06/21/2025 2:15 PM EST Office Visit [address] [address] [address], [address] [place] [address] [email or web address] Charan Jon, PT 4 [place] [address] [email or web address] 07/18/2025 2:30 PM EST [facility] 22 [place] [address] Janina Donohue MD 22 [facility], [address] [place] [address] [email or web address] 07/26/2025 3:00 PM EST Ancillary Procedure [facility] 22 [facility] 3rd Floor, [address] [place] [address] Brennan Childers MD [address] [place] [address], [address] [place] [address] [email or web address] documented as of this encounter Visit Diagnoses Diagnosis Pain in breast Mastodynia documented in this encounter Additional Health Concerns Infection Onset Date Last Indicated Resolved Time CoV-Risk 09/21/2024 09/21/2024 09/21/2024 2:57 PM EST COVID-19 09/21/2024 09/21/2024 10/12/2024 1:21 AM EST Assessment Noted Time PHQ-2 Depression Total Score: 2 12/16/19 19 1:37 PM EDT documented as of this encounter Care Teams Edi Manager Relationship Specialty Start Date End Date Nestor Louis DO [address] [place] [address] [email or web address] PCP - General Family Medicine 08/20/19 07/03/20 Lisa Duff MD [address] [place] [address] [email or web address] PCP - General Family Medicine 07/04/20 03/11/21 Lisa Duff MD [address] [place] [address] [email or web address] PCP - General Family Medicine 03/12/21 03/06/23 Martin Wright DO [address] [address] PCP - General Family Medicine 03/07/23 08/20/23 Dunia-Dahiana Townsend 22 [facility], [address] [place] [address] [email or web address] PCP - General Family Medicine 08/21/23 Vesna Umana NP [address] [place] [address] [address] [place] [address] Historical LMR Provider 06/05/17 2 Bianca Regan MD [address] [address] Historical LMR Provider 06/05/17 08/25/21 Robyn Aguayo MD [address] [place] [address] [email or web address] Insurance Assigned Provider 11/24/19 08/26/20 Clary Morgan MD [address] [address] Gastroenterology 11/15/24 documented as of this encounter Additional Source Comments The information contained in this document represents components of the legal health record. It is not the complete legal health record.[facility]
--- OUTSIDE RECORDS SUMMARY | 2025-05-11 14:46 | XMS_ITS | Encounter Summary ---
Author Organization [facility] Address [address] [place] [address] Phone Care Team Providers Care Event Promoter Name Role Phone EricwellDahiana Primary Care Provider [phone] Clary Morgan MD Unavailable [phone] Reason for Visit * Reason Comments Medication Refill Encounter Details Date Type Department Care Team (Late st Contact Info) Description 05/11/2025 Refill [facility] 55 [facility], 5th [place] [address] Clary Morgan MD 55 [facility] 5 [place] [address] [email or web address] Medication Refill Social History Tobacco Use Types Packs/Day Years [...] your housing situation today? I have salo sing 08/21/2023 How many times have you move [...] Description 05/17/2025 1:30 PM EDT Office Visit [address] [address] Dahiana Fabian [address] [place] [address], [address] [place] [address] [email or web address] Charan Jon, PT 4 [place] [address] 05/24/2025 2:15 PM EDT Office Visit [address] [address] Dahiana Fabian [address] [place] [address], [address] [place] [address] [email or web address] Charan Jon, PT 4 [place] [address] 05/31/2025 2:15 PM EDT Office Visit [address] [address] Dahiana Fabian [address] [place] [address], [address] [place] [address] [email or web address] Charan Jon, PT 4 [place] [address] 06/06/2025 1:20 PM EDT Ancillary Procedure [facility] [address] [place] [address] 3rd Floor, [address] [place] [address] Kiko Minor MD [address] [place] [address], [address] [place] [address] 06/07/2025 2:15 PM EDT Office Visit [address] [address] Rui Dahiana [address] [place] [address], [address] [place] [address] [email or web address] Charan Jon, PT 4 [place] [address] 06/10/2025 4:00 PM EDT Office Visit [address] [address] Dahiana Fabian [address] [place] [address], [address] [place] [address] [email or web address] 06/14/2025 2:15 PM EDT Office Visit [address] [address] [facility] [address] [place] [address], [address] [place] [address] [email or web address] Charan Jon, PT 4 [place] [address] 06/21/2025 2:15 PM EST Office Visit [address] [address] [facility] Facility[facility] Schreiber [address] [place] [address], [address] [place] [address] [email or web address] Charan Jon, PT 4 [place] [address] 07/18/2025 2:30 PM EST Office Visit [facility] [address] [place] [address] Janina Donohue MD 22 [facility], [address] [place] [address] [email or web address] 07/26/2025 3:00 PM EST Ancillary Procedure [facility] 22 [facility] 3rd Floor, [address] [place] [address] Brennan Childers MD 22 [facility], [address] [place] [address] [email or web address] documented as of this encounter 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 Additional Health Concerns Assessment Noted Time PHQ-9 Depression Total Score: 8 09/10/19 24 12:31 PM EST PHQ-2 Depression Total Score: 2 06/07/20 24 2:03 PM EDT documented as of this encounter Care Teams Event Promoter Relationship Specialty Start Date End Date Dahiana Fabian 22 [facility], [address] [place] [address] PCP - General Family Medicine 08/21/23 Clary Morgan MD [address] [facility] 5 [place] [address] Gastroenterology 11/15/24 documented as of this encounter Additional Source Comments The information contained in this document represents components of the legal health record. It is not the complete legal health record.[facility]
--- OUTSIDE RECORDS SUMMARY | 2025-05-11 14:46 | XMS_ITS | Encounter Summary ---
Author Organization [facility] Address [address] [place] [address] Phone Care Team Providers Care Customer Training Specialist Name Role Phone Dong [place] NP Unavailable [phone] Bianca Regan MD Unavailable Robyn Aguayo MD Primary Care Provider Nestor Louis DO Primary Care Provider [phone] Robyn Aguayo MD Unavailable Lisa Duff MD Primary Care Provider [phone] Lisa Duff MD Primary Care Provider [phone] Martin Wright DO Primary Care Provider Dahiana Fabian Primary Care Provider Clary Morgan MD Unavailable [phone] Encounter Details Date Type Department Care Team (Late st Contact Info) Description 01/07/2019 Ancillary Orders [facility] [address] [place], [place] [id number] Robyn Aguayo MD [address] [place] [address] [email or web address] Social History Tobacco Use Types Packs/Day Years [...] Description 05/17/2025 1:30 PM EDT Office Visit [address] [phone] Dahiana Fabian [address] [place] [address], [address] [place] [address] [email or web address] Charan Jon, PT 4 [place], [place] [id number] [email or web address] 05/24/2025 2:15 PM EDT Office Visit [address] 4596588 Jude Fabian[address], [address] [place] [id number] [email or web address] Charan Jon, PT 4 [place], [place] [phone] [email or web address] 05/31/2025 2:15 PM EDT Office Visit [address] 9328388 Rui [address], [address] [place] [id number] [email or web address] Charan Jon, PT 4 [place], [place] [phone] [email or web address] 06/06/2025 1:20 PM EDT Ancillary Procedure [facility] [address] [address]rd Floor, [address] [place] [address] Kiko Minor MD 22 [facility], [address] [place] [address] 06/07/2025 2:15 PM EDT Office Visit [address] [address] [address], [address] [place] [address] [email or web address] Charan Jon, PT 4 [place] [address] [email or web address] 06/10/2025 4:00 PM EDT Office Visit [address] [address] [address], [address] [place] [address] [email or web address] 06/14/2025 2:15 PM EDT Office Visit [address] [address] [address], [address] [place] [address] [email or web address] Charan Jon, PT 4 [place], [place] [phone] [email or web address] 06/21/2025 2:15 PM EST Office Visit [address] [address] [address], [address] [place] [address] [email or web address] Dontrell Charan, PT 4 [place] [address] [email or web address] 07/18/2025 2:30 PM EST Office Visit [facility] [address] [place] [address] Janina Donohue MD [address] [place] [address], [address] [place] [address] [email or web address] 07/26/2025 3:00 PM EST Ancillary Procedure [facility] [address] 3rd Floor, [address] [place] [address] Brennan Childers MD [address] [place] [address], [address] [place] [address] [email or web address] documented as of this encounter Visit Diagnoses Not on filedocumented in this encounter Additional Health Concerns Infection Onset Date Last Indicated Resolved Time CoV-Risk 09/21/2024 09/21/2024 09/21/2024 2:57 PM EST COVID-19 09/21/2024 09/21/2024 10/12/2024 1:21 AM EST Assessment Noted Time PHQ-2 Depression Total Score: 2 12/16/19 19 1:37 PM EDT documented as of this encounter Care Teams Customer Training Specialist Relationship Specialty Start Date End Date Robyn Aguayo MD [address] [place] [address], [address] [place] [address] [email or web address] PCP - General Family Medicine 09/07/18 08/19/19 Nestor Louis DO [address] [place] [address] [email or web address] PCP - General Family Medicine 08/20/19 07/03/20 Lisa Duff MD [address] [place] [address] [email or web address] PCP - General Family Medicine 07/04/20 03/11/21 Lisa Duff MD [address] [place] [address] [email or web address] PCP - General Family Medicine 03/12/21 03/06/23 Martin Wright DO [address] [address] PCP - General Family Medicine 03/07/23 08/20/23 Dahiana Fabian [address] [place] [address], [address] [place] [address] [email or web address] PCP - General Family Medicine 08/21/23 Vesna Umana NP [address] [place] [address] [place] [address] [email or web address] Historical LMR Provider 06/05/17 2 Bianca Regan MD [address] [place] [address] [email or web address] Historical LMR Provider 06/05/17 08/25/21 Robyn Aguayo MD [address] [place] [address] [email or web address] Insurance Assigned Provider 11/24/19 08/26/20 Clary Morgan MD 55 [facility] 5 [place] [address] [email or web address] Gastroenterology 11/15/24 documented as of this encounter Additional Source Comments The information contained in this document represents components of the legal health record. It is not the complete legal health record.[facility]
--- OUTSIDE RECORDS SUMMARY | 2025-05-11 14:46 | XMS_ITS | Encounter Summary ---
Author Organization [facility] Address [address] [place] [address] [address] [place] [address] Phone Care Team Providers Care Health Care Legal Assistant Name Role Phone Lisa Duff MD Primary Care Provider [phone] Martin Wright DO Primary Care Provider [phone] Dahiana Fabian Primary Care Provider Clary Morgan MD Unavailable [phone] Encounter Details Date Type Department Care Team (Late st Contact Info) Description 09/12/2022 Procedure Pass [facility] [place], Daniel [address] [facility], 2nd Floor, [address] [place] [address] Social History Tobacco Use Types Packs/Day Years [...] Description 05/17/2025 1:30 PM EDT Office Visit [address] [address] Jude Fabiania [address] [place] [address], [address] [place] [address] [email or web address] Dontrell Charan, PT 4 [place] [address] 05/24/2025 2:15 PM EDT Office Visit [address] [address] Dahiana Fabian [address] [place] [address], [address] [place] [address] [email or web address] Charan Jon, PT 4 [place] [address] 05/31/2025 2:15 PM EDT Office Visit [address] [address] Jude Fabiania [address] [place] [address], [address] [place] [address] [email or web address] Charan Jon, PT 4 [place] [address] 06/06/2025 1:20 PM EDT Ancillary Procedure [facility] [address] [place] [address] 3rd Floor, [address] [place] [address] Kiko Minor MD [address] [place] [address], [address] [address] 06/07/2025 2:15 PM EDT Office Visit [address] [address] Dahiana Fabian [address] [place] [address], [address] [place] [address] [email or web address] Charan Jon, PT 4 [place] [address] 06/10/2025 4:00 PM EDT Office Visit [address] [place] [address] Dahiana Fabian [address] [place] [address], [address] [place] [address] [email or web address] 06/14/2025 2:15 PM EDT Office Visit [facility] [address] [place] [address] Dahiana Fabian [address] [place] [address], [address] [place] [address] [email or web address] Charan Jon, PT 4 [place] [address] 06/21/2025 2:15 PM EST Office Visit [facility] [address] [place] [address] Dahiana Fabian [address] [place] [address], [address] [place] [address] [email or web address] Charan Jon, PT 4 [place] [address] 07/18/2025 2:30 PM EST Office Visit [facility] [address] [place] [address] [place] [address] Janina Donohue MD 22 [facility], [address] [place] [address] [email or web address] 07/26/2025 3:00 PM EST Ancillary Procedure [facility] 22 [facility] 3rd Floor, [address] [place] [address] Brennan Childers MD 22 [facility], [address] [place] [address] [email or web address] documented as of this encounter Visit Diagnoses Not on filedocumented in this encounter Additional Health Concerns Infection Onset Date Last Indicated Resolved Time CoV-Risk 09/21/2024 09/21/2024 09/21/2024 2:57 PM EST COVID-19 09/21/2024 09/21/2024 10/12/2024 1:21 AM EST Assessment Noted Time PHQ-2 Depression Total Score: 2 12/16/19 19 1:37 PM EDT documented as of this encounter Care Teams Health Care Legal Assistant Relationship Specialty Start Date End Date Lisa Duff MD [address] [place] [address] [email or web address] PCP - General Family Medicine 03/12/2103/06 Martin Wright DO [address] [place] [address] PCP - General Family Medicine 03/07/23 08/20/23 Dahiana Fabian [address] [place] [address], [address] [place] [address] [email or web address] PCP - General Family Medicine 08/21/23 Clary Morgan MD [address] [place] [address] [email or web address] Gastroenterology 11/15/24 documented as of this encounter Additional Source Comments The information contained in this document represents components of the legal health record. It is not the complete legal health record.[facility]
--- OUTSIDE RECORDS SUMMARY | 2025-05-11 14:46 | XMS_ITS | Encounter Summary ---
Author Organization [facility] Address [address] [place] [address] [place] [address] Phone Care Team Providers Care Mammographer Name Role Phone Dahiana Fabian Primary Care Provider [phone] Clary Morgan MD Unavailable [phone] Encounter Details Date Type Department Care Team (Late st Contact Info) Description 09/14/2024 Procedure Pass [facility], Ct Scan - [facility] [address] [place] [address] Social History Tobacco Use Types Packs/Day Years [...] Risk Indicated 09/14/2024 1:25 PM EST Amina Dick RN * [place] Suicide Severity Rating Scale (Screener/Recent Self-Report) Question [...] Description 05/17/2025 1:30 PM EDT Office Visit [address] [address] Dahiana Fabian [address] [place] [address], [address] [place] [address] [email or web address] Charan Jon, PT 4 [place], [place] [id number] 05/24/2025 2:15 PM EDT Office Visit [address] [address] Daihana Fabian [address] [place] [address], [address] [place] [address] [email or web address] Charan Jon, PT 4 [place], [place] [id number] 05/31/2025 2:15 PM EDT Office Visit [address] [address] Dahiana Fabian [address] [place] [address], [address] [place] [address] [email or web address] Charan Jon, PT 4 [place] [address] 06/06/2025 1:20 PM EDT Ancillary Procedure [facility] [address] [facility] 3rd Floor, [address] [place] [address] Kiko Minor MD 22 [facility], [address] [place] [address] 06/07/2025 2:15 PM EDT Office Visit [address] [address] [facility], [address] [place] [address] [email or web address] Charan Jon, PT 4 [place] [address] 06/10/2025 4:00 PM EDT Office Visit [address] [place] [address], [address] [place] [address] [email or web address] 06/14/2025 2:15 PM EDT Office Visit [address], [address] [place] [address] [email or web address] Charan Jon, PT 4 [place], [place] [phone] 06/21/2025 2:15 PM EST Office Visit [address] [address], [address] [place] [address] [email or web address] Charan Jon, PT 4 [place] [address] 07/18/2025 2:30 PM EST Office Visit [facility] [address] [place] [address] Janina Donohue MD [address] [place] [address], [address] [place] [address] [email or web address] 07/26/2025 3:00 PM EST Ancillary Procedure [facility] [address] 3rd Floor, [address] [place] [address] Brennan Childers MD [address] [place] [address], [address] [place] [address] [email or web address] documented as of this encounter Visit [...] documented as of this encounter Care Teams Mammographer Relationship Specialty Start Date End Date Dahiana Fabian 22 [facility], [address] [place] [address] PCP - General Family Medicine 08/21/23 Clary Morgan MD [address] [facility] 5 [place] [address] Gastroenterology 11/15/24 documented as of this encounter Additional Source Comments The information contained in this document represents components of the legal health record. It is not the complete legal health record.[facility]
--- OUTSIDE RECORDS SUMMARY | 2025-05-11 14:46 | XMS_ITS | Encounter Summary ---
Author Organization [facility] Address [address] [place] [address] Phone Care Team Providers Care Intelligence Consultant Name Role Phone Martin Wright DO Primary Care Provider Dahiana Fabian Primary Care Provider Clary oMrgan MD Unavailable [phone] Encounter Details Date Type Department Care Team (Late st Contact Info) Description 03/25/2023 Procedure Pass [facility], Ct Scan - [address] [address] Social History Tobacco Use Types Packs/Day Years Used Date Smoking Tobacco: Former Cigarettes Q uit: 06/26/1986 Smokeless Tobacco: Never Alcohol Use Standard Drinks/Week Comments No 0 (1 standard drink = 0.6 oz pur e alcohol) Education Answer Date Recorded Are you interested in more education? Not on magdy e 12/13/2022 Are you concerned about learning? Not on file 12/13/2022 No 12/13/2022 No 12/13/2022 Digital Access Answer Date Recorded No 01/07/2023 No 01/07/2023 Reliable internet access at home? Not on file 01/07/2023 Device with a working camera? Not on file Comments No Sex and Gender Information Value Date Recorded Sex Assigned at Female 09/05/2021 7:38 PM EST Legal Sex Female 10:36 PM EDT Gender Identity Female 07/31/2020 7:39 AM EST Sexual Orientation Straight 07/31/2020 7: 39 AM EST documented as of this encounter Functional Status * Calculated C-SSRS Risk Score (Lifetime/Recent) Answer Date of Assessment Author No Risk Indicated 03/25/2023 11:48 PM EDT Yancy Sheikh RN * [place] Suicide Severity Rating Scale (Screener/Recent Self-Report) Question Answer Date of Assessment Author 1. Wish to be (Past 1 Month) No 03/25/2023 11:48 PM EDT Yancy Short RN 2. Non-Specific Active Suicidal Thoughts (Past 1 Month) No 03/25/2023 11:48 PM EDT Yancy Short RN 6. Suicidal Behavior (Lifetime) No 03/25/2023 11:48 PM EDT Yancy Short RN documented as of this encounter Plan of Treatment Upcoming Encounters Date Type Department Care Team (Latest Contact Info) Description 05/17/2025 1:30 PM EDT Office Visit [address] [address] [address], [address] [place] [address] [email or web address] Charan Jon, PT 4 [place] [address] [email or web address] 05/24/2025 2:15 PM EDT Office Visit [address] [address] Dahiana Fabian [address] [place] [address], [address] [place] [address] [email or web address] Charan Jon, PT 4 [place], [place] [id number] [email or web address] 05/31/2025 2:15 PM EDT Office Visit [address] [address] Jude Fabiania [address] [place] [address], [address] [place] [address] [email or web address] Charan Jon, PT 4 [place] [address] 06/06/2025 1:20 PM EDT Ancillary Procedure [facility] [address] [place] [address] Dr 3rd Floor, [address] [place] [address] Kiko Minor MD 22 [facility], [address] [place] [address] 06/07/2025 2:15 PM EDT Office Visit [address], [address] [place] [address] [email or web address] Charan Jon, PT 4 [place] [address] 06/10/2025 4:00 PM EDT Office Visit [address] [address] [address], [address] [place] [address] [email or web address] 06/14/2025 2:15 PM EDT Office Visit [address] [address] [address], [address] [place] [address] [email or web address] Charan Jon, PT 4 [place] [address] [email or web address] 06/21/2025 2:15 PM EST Office Visit [facility] 4 [place], [place] [id number] Dahiana Fabian [address] [facility], [address] [place] [address] [email or web address] Charan Jon, PT 4 [place] [address] 07/18/2025 2:30 PM EST Office Visit [facility] Rheumatology [address] [place] [address] [place] [address] Janina Donohue MD [address] [place] [address], [address] [place] [address] [email or web address] 07/26/2025 3:00 PM EST Ancillary Procedure [facility] [address] [place] [address] Dr 3rd Floor, [address] [place] [address] Brennan Childers MD [address] [place] [address], [address] [place] [address] [email or web address] documented as of this encounter Visit Diagnoses Not on filedocumented in this encounter Additional Health Concerns Infection Onset Date Last Indicated Resolved Time CoV-Risk 09/21/2024 09/21/2024 09/21/2024 2:57 PM EST COVID-19 09/21/2024 09/21/2024 10/12/2024 1:21 AM EST Assessment Noted Time PHQ-2 Depression Total Score: 2 12/16/19 19 1:37 PM EDT documented as of this encounter Care Teams Intelligence Consultant Relationship Specialty Start Date End Date Martin Wright DO [address] [facility] [address] [place] [address] PCP - General Family Medicine 03/07/23 08/20/[address] [facility], [address] [place] [address] [email or web address] PCP - General Family Medicine 08/21/23 Clary Morgan MD [address] [place] [address] [email or web address] Gastroenterology 11/15/24 documented as of this encounter Additional Source Comments The information contained in this document represents components of the legal health record. It is not the complete legal health record.[facility]
--- OUTSIDE RECORDS SUMMARY | 2025-05-11 14:46 | XMS_ITS | Encounter Summary ---
Author Organization [facility] Address [address] [place] [address] Phone Care Team Providers Care Campus Ambassador Name Role Phone Dong [place] NP Unavailable [phone] Bianca Regan MD Unavailable Robyn Aguayo MD Unavailable Lisa Duff MD Primary Care Provider [phone] Lisa Duff MD Primary Care Provider [phone] Martin Wright DO Primary Care Provider Dahiana Fabian Primary Care Provider Clary Morgan MD Unavailable [phone] Reason for Referral * MRI/CAT Scan - Closed Specialty Diagnoses / Procedures Referred By Contac t Referred To Contact Radiology Diagnoses Change in bowel habits Anorexia Procedures MRI Enterography Abdomen/Pelvis MRI PELVIS (GI/) Zarina Hodgson MD Phone: tel: fax: Referral ID Status Reason Start Date Expiration Date Visits Re quested Visits Authorized [id number] Closed 07/04/2020 07/04/2021 1 1 Encounter Details Date Type Department Care Team (Late st Contact Info) Description 07/04/2020 Transcribe Orders Virtual Department 30 [place] [address] Zarina Hodgson MD [address] [place] [address] Dr [address] [place] [address] Change in bowel habits (Primary Dx); Anorexia Social History Tobacco Use Types Packs/Day Years [...] Description 05/17/2025 1:30 PM EDT Office Visit [address] [address] Dahiana Fabian [address] [place] [address], [address] [place] [address] [email or web address] Charan Jon, PT 4 [place] [address] 05/24/2025 2:15 PM EDT Office Visit [address] [address] Dahiana Fabian [address] [place] [address], [address] [place] [address] [email or web address] Charan Jon, PT 4 [place] [address] 05/31/2025 2:15 PM EDT Office Visit [address] [address] Rui Dahiana [address] [place] [address], [address] [place] [address] [email or web address] Charan Jon, PT 4 [place], [place] [id number] 06/06/2025 1:20 PM EDT Ancillary Procedure [facility] [address] [place] [address] Dr 3rd Floor, [address] [place] [address] Kiko Minor MD 22 [facility], [address] [place] [address] 06/07/2025 2:15 PM EDT Office Visit [address] [address] Rui Dahiana [address] [place] [address], [address] [place] [address] [email or web address] Charan Jon, PT 4 [place] [address] 06/10/2025 4:00 PM EDT Office Visit [address] [address], [address] [place] [address] [email or web address] 06/14/2025 2:15 PM EDT Office Visit [address] [address] Jude Fabiania [address] [place] [address], [address] [place] [address] [email or web address] Dontrell Charan, PT 4 [place] [address] 06/21/2025 2:15 PM EST Office Visit [facility] 4 [place] [address] Dahiana Fabian 22 [facility], [address] [place] [address] [email or web address] Charan Jon, PT 4 [place] [address] 07/18/2025 2:30 PM EST Office Visit [facility]ology [address] [place] [address] [place] [address] Janina Donohue MD [address] [place] [address], [address] [place] [address] [email or web address] 07/26/2025 3:00 PM EST Ancillary Procedure [facility] [address] [place] [address] 3rd Floor, [address] [place] [address] Brennan Childers MD [address] [place] [address], [address] [place] [address] [email or web address] documented as of this encounter Results * MRI ENTEROGRAPHY ABDOMEN AND PELVIS WITH AND WITHOUT CONTRAST (07/18/2020 9:46 AM EST) Anatomical Region Laterality Modality Pelvis Magnetic Resonan ce 07/18/2020 9:55 AM EST Impressions 07/18/2020 10:39 AM EST 1. No evidence of inflammatory bowel disease or other bowel pathology is apparent. 2. Subtle changes in the proximal small bowel mesentery consistent with mesenteritis though not obviously active based on lack of identifiable current enhancement. POS [id number] Narrative 07/18/2020 10:39 AM EST TECHNIQUE: 1.5 Belkis scanner. Imaging with oral contrast and without and with IV contrast using enterography technique. Compared to [facility] CT 05/31/2020. FINDINGS: No bowel wall thickening, hyperemia, dilatation or mass is apparent at any level in the small and large bowel. Stomach is quite capacious but otherwise normal in appearance. Corresponding to the mery mesentery seen on the recent CT scan, the T2 fat saturation sequence shows subtle increased signal in the proximal small bowel mesentery and extending up into the anterior right upper quadrant which would suggest mesenteritis although there is no identifiable enhancement of the mesenteric fat to clearly indicate active inflammation at this time. Liver, gallbladder, biliary tree, pancreas, spleen, adrenals, kidneys and bladder all unremarkable. 1 cm subserosal fibroid in the uterine fundus. No significant gynecologic pathology No ascites, gross adenopathy or pleural effusion. No abnormal marrow signal in the [id number] Procedure Note Efe Neely MD - 07/18/2020 TECHNIQUE: 1.5 Belkis scanner. Imaging with oral contrast and without and with IV contrast usingenterography technique. Compared to [facility] CT 05/31/2020. FINDINGS: No bowel wall thickening, hyperemia, dilatation or mass is apparent at anylevel in the small and large bowel. Stomach is quite capacious but otherwise normal in appearance. Corresponding to the mery mesentery seen on the recent CT scan, the T2fat saturation sequence shows subtle increased signal in the proximalsmall bowel mesentery and extending up into the anterior right upperquadrant which would suggest mesenteritis although there is noidentifiable enhancement of the mesenteric fat to clearly indicate activeinflammation at this time. Liver, gallbladder, biliary tree, pancreas, spleen, adrenals, kidneys andbladder all unremarkable. 1 cm subserosal fibroid in the uterine fundus. No significant gynecologicpathology No ascites, gross adenopathy or pleural effusion. No abnormal marrow signal in the [id number] IMPRESSION: 1. No evidence of inflammatory bowel disease or other bowel pathology isapparent. 2. Subtle changes in the proximal small bowel mesentery consistent withmesenteritis though not obviously active based on lack of identifiablecurrent enhancement. POS [id number] Zarina Hodgson MD IMG MR ABDOMEN Final Res ult documented in this encounter Visit Diagnoses Diagnosis Change in bowel habits- Primary Other symptoms involving digestive system Anorexia Change in bowel habits Other symptoms involving digestive system Anorexia documented in this encounter Additional Health Concerns Infection Onset Date Last Indicated Resolved Time CoV-Risk 09/21/2024 09/21/2024 09/21/2024 2:57 PM EST COVID-19 09/21/2024 09/21/2024 10/12/2024 1:21 AM EST Assessment Noted Time PHQ-2 Depression Total Score: 2 12/16/19 19 1:37 PM EDT documented as of this encounter Care Teams Campus Ambassador Relationship Specialty Start Date End Date Lisa Duff MD [address] [place] [address] [email or web address] PCP - General Family Medicine 07/04/20 03/11/21 Lisa Duff MD [address] [place] [address] [email or web address] PCP - General Family Medicine 03/12/21 03/06/23 Martin Wright DO [address] [address] PCP - General Family Medicine 03/07/23 08/20/23 Dahiana Fabian [address] [place] [address], [address] [place] [address] [email or web address] PCP - General Family Medicine 08/21/23 Vesan Umana NP [address] [place] [address] [address] [place] [address] [email or web address] Historical LMR Provider 06/05/17 2 Bianca Regan MD 22 [facility], [address] [place] [address] [email or web address] Historical LMR Provider 06/05/17 08/25/21 Robyn Aguayo MD [address] [place] [address] [email or web address] Assigned Provider 11/24/19 08/26/20 Clary Morgan MD [address] [address] [email or web address] Gastroenterology 11/15/24 documented as of this encounter Additional Source Comments The information contained in this document represents components of the legal health record. It is not the complete legal health record.[facility]
--- OUTSIDE RECORDS SUMMARY | 2025-05-11 14:46 | XMS_ITS | Encounter Summary ---
Author Organization [facility] Address [address] [place] [address] Phone Care Team Providers Care Order Picker Name Role Phone Martin Wright DO Primary Care Provider Dahiana Fabian Primary Care Provider Clary Morgan MD Unavailable [phone] Encounter Details Date Type Department Care Team (Late st Contact Info) Description 03/26/2023 Procedure Pass [facility], [address] [address] Social History Tobacco Use Types Packs/Day Years [...] Description 05/17/2025 1:30 PM EDT Office Visit [address] [address] Dahiana Fabian [address] [place] [address], [address] [place] [address] [email or web address] Charan Jon, PT 4 [place] [address] [email or web address] 05/24/2025 2:15 PM EDT Office Visit [address] [address] Dahiana Fabian [address] [place] [address], [address] [place] [address] [email or web address] Charan Jon, PT 4 [place] [address] [email or web address] 05/31/2025 2:15 PM EDT Office Visit [address] [address] Dahiana Fabian [address] [place] [address], [address] [place] [address] [email or web address] Charan Jno, PT 4 [place] [address] [email or web address] 06/06/2025 1:20 PM EDT Ancillary Procedure [facility] [address] [place] [address] 3rd Floor, [address] [place] [address] Kiko Minor MD [address] [place] [address], [address] [place] [address] 06/07/2025 2:15 PM EDT Office Visit [address] [facility] [address], [address] [place] [address] [email or web address] Charan Jon, PT 4 [place] [address] 06/10/2025 4:00 PM EDT Office Visit [address] [place] [address] [facility] [address], [address] [place] [address] [email or web address] 06/14/2025 2:15 PM EDT Office Visit [address] [address] [facility] [address], [address] [place] [address] [email or web address] Charan Jon, PT 4 [place] [address] 06/21/2025 2:15 PM EST Office Visit [address] [address] [facility] [address], [address] [place] [address] [email or web address] Charan Jon, PT 4 [place] [address] 07/18/2025 2:30 PM EST Office Visit [facility] Rheumatology [address] [place] [address] [place] [address] Janina Donohue MD 22 [facility], [address] [place] [address] [email or web address] 07/26/2025 3:00 PM EST Ancillary Procedure [facility] [address] [place] [address] Dr 3rd Floor, [address] [place] [address] Brennan Childers MD [address] [facility], [address] [place] [address] [email or web address] documented as of this encounter Visit Diagnoses Not on filedocumented in this encounter Additional Health Concerns Infection Onset Date Last Indicated Resolved Time CoV-Risk 09/21/2024 09/21/2024 09/21/2024 2:57 PM EST COVID-19 09/21/2024 09/21/2024 10/12/2024 1:21 AM EST Assessment Noted Time PHQ-2 Depression Total Score: 2 12/16/19 19 1:37 PM EDT documented as of this encounter Care Teams Order Picker Relationship Specialty Start Date End Date Martin Wright DO [address] [facility] [address] [place] [address] PCP - General Family Medicine 03/07/23 08/20/23 Dunia-Dahiana Townsend [facility], [address] [place] [address] PCP - General Family Medicine 08/21/23 Clary Morgan MD 55 [facility] 5 [place] [address] Gastroenterology 11/15/24 documented as of this encounter Additional Source Comments The information contained in this document represents components of the legal health record. It is not the complete legal health record.[facility]
--- OUTSIDE RECORDS SUMMARY | 2025-05-11 14:46 | XMS_ITS | Clinical Summary ---
Author Organization [facility] Address [address] [place] [id number] Phone Care Team Providers Care Golf Ball Cover Treater Name Role Phone Dahiana Fabian Primary Care Provider [phone] Clary Morgan MD Unavailable [phone] Allergies Active Allergy Reactions Criticality Noted Date Comments Adhesive 06/24/2022 Bee Venom Protein (Honey Bee) Anaphylaxis High 06/24/2022 Duloxetine Hives 06/20/2017 House Dust 12/27/2022 Hydrophilic Cream 10/08/2022 Other reaction(s): neosporin Sumatriptan Hives 06/20/2017 Latex Other (See Comments) 03/19/2018 Skin irritation Mold Extracts 12/27/2022 Neomycin Rash Low 05/09/2021 Bacitracin is ok to use per patient Penicillins Hives 06/20/2017 Trazodone 03/08/2022 Medications buPROPion (WELLBUTRIN XL) 300 MG ER 24 hr tablet Take 300 mg by mouth daily. Active denosumab (PROLIA) 60 mg/mL Syrg subcutaneous syringeIndication s:Osteopenia of multiple sites Inject 1 mL (60 mg total) under the skin once for 1 dose. 1 mL 12/06/19 Active Additional Information Patient taking differently:60 mg Subcutaneous Once,Every 6 months, Reported on 04/07/2025 R-LIPOIC ACID ORAL Take by mouth. Activ e Medication-Free Text Ultra thistle Active QUERCETIN ORAL Take by mouth. Active magnesium chloride 64 mg TbECIndications:u nsure strength Take by mouth daily. Indications: unsure strength Active diclofenac sodium (VOLTAREN) 1 % Gel Apply 2 g topically as needed. Active zolpidem (AMBIEN) 10 mg tabletIndications :Primary insomnia TAKE 1 TABLET BY MOUTH DAILY AT BEDTIME NEEDED 05/20/20 24 Active hydroxychloroquin e (PLAQUENIL) 200 mg tabletIndications :Other forms of systemic lupus erythematosus, unspecified organ involvement status,Sjogren's syndrome, with unspecified organ involvement TAKE ONE TABLET BY MOUTH EVERY DAY 90 tablet 3 09/27/19 25 Active gabapentin (NEURONTIN) 250 mg/5 mL (5 mL) SolnIndications:S clerosing mesenteritis Take 2 mL (100 mg total) by mouth nightly at bedtime. 360 mL 11/16/19 25 Active valACYclovir (VALTREX) 1000 MG tabletIndications :Recurrent oral herpes simplex Take 2 tabs (2000mg) x 1 day as soon as symptoms start. 6 tablet 3 12/02/19 25 Active albuterol 90 mcg/actuation inhaler Inhale 1 puff into the lungs every 4 (four) hours as needed for shortness of breath/dyspnea. Active estradioL (ESTRACE) 0.01 % (0.1 mg/gram) vaginal cream Place 2 g vaginally every 7 days. Active EPINEPHrine (EPIPEN 2-PIYUSH) 0.3 mg/0.3 mL auto-injector Inject 0.3 mL (0.3 mg total) into the muscle as needed for anaphylaxis. 2 each 1 12/22/19 25 Active atorvastatin (LIPITOR) 20 MG tablet Take 20 mg by mouth daily. Active omega 5-cay-obq-fish oil (FISH OIL) 1,000 (120-180) mg Cap Take 2 capsules by mouth daily. Active Lactobacillus acidophilus (PROBIOTIC ORAL) Take by mouth daily. Active omeprazole (PRILOSEC) 40 MG capsule TAKE 1 CAPSULE(40 MG) BY MOUTH DAILY 90 capsule 3 02/15/20 25 Active finasteride (PROSCAR) 5 mg tablet Take 1 tablet by mouth as needed. 02/01/20 25 Active LORazepam (ATIVAN) 1 MG tablet as needed. 02/24/20 25 Active metroNIDAZOLE (METROCREAM) 0.75 % cream as needed. 01/26/20 25 Active cholecalciferol (VITAMIN D3) 2,000 unit tabletIndications :Vitamin D insufficiency Take 1 tablet (2,000 Units total) by mouth daily. 90 tablet 1 02/26/20 25 Active temazepam (RESTORIL) 15 mg capsule Take 2 capsules (30 mg total) by mouth nightly at bedtime as needed for anxiety. 60 capsule 5 04/07/20 25 025 Active Problems Problem Noted Date Diagnosed Date Chronic pain of right knee 02/25/2025 Assessment & Plan (02/25/2025 5:32 PM EDT): Chronic pain due to arthritis and bone spurs, worsens with pressure and kneeling. Prefers imaging before physical therapy. X-ray and orthopedic referral for potential steroid injection recommended. - Order x-ray of the right knee. - Refer to orthopedics for evaluation. 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 Severely allergic to all bee types. Given EpiPen but has . Would like to try nasal spray. Rash and other nonspecific skin eruption 025 Right hand weakness 09/14/2024 Assessment & Plan (09/14/2024 6:33 PM EST): -Patient presented with symptoms of significant pain at the right hand and wrist with associated weakness, possible numbness and tingling with symptoms spreading to the rest of her arm possibly right side of her body. 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 -Sensations and strength is intact of the facial muscles, upper extremities bilaterally, and bilateral lower extremities. 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 -At this time since pain developed around 4 AM, she states that the weakness in her right hand has somewhat improved and she has the ability to flex a portion of her wrist and move her fingers however this is continued to be limited secondary to pain. She continues to endorse some weakness on the right side of her body although she is not sure if this is driven by the pain in her right upper extremity. -Teleneurology was consulted, after further review of the chart, it was apparent the patient did have a similar episode of pain/weakness in 2022 though suspected to be rheumatological in nature and an exacerbation of her rheumatological disease, they did recommend an MRI of the brain to rule out possible CVA which has been ordered and currently being performed. Plan: Given symptoms are currently improving, and only recommendation from teleneurology at this time is for an MRI to rule out CVA, as well as an alternate diagnosis is a possibility including rheumatological flare. Discussed the case with the patient as well as ED provider who agreed that the MRI can be performed at the time of this consultation and can further dictate if patient would require further admission for evaluation of TIA/CVA versus follow-up with rheumatology due to a possible recurrent flare of her rheumatological disease Per teleneurology and the recommendation to initiate ASA/Plavix unless positive findings on MRI, did recommend evaluation of TSH, lipid, A1c, ESR, CRP for secondary risk stratification. Trial Voltaren gel. Consider discussion with rheumatology for further recommendations. If MRI negative recommend reaching out to rheumatology for recommendations, discussion with the patient in terms of follow-up as well as precautions on returning with worsening symptoms Gastroesophageal reflux disease without esophagi tis 07/12/2024 Assessment & Plan (01/14/2025 3:57 PM EDT): Avoid late, large, spicy meals. Keep headboard elevated at 45 angle for nighttime. Assessment & Plan (07/12/2024 4:03 PM EST): Avoid late, large, spicy meals. Keep headboard elevated at 45 angle for nighttime. Encounter for annual wellness visit 06/07/2024 Assessment & Plan (06/07/2024 2:53 PM EDT): This is a 74 y.o. female who presents for a complete physical exam. Past medical history, surgical history, social history, family history and allergies reviewed and document in chart. -Blood pressure taken, no signs of hypertension. -General health screening appropriate for age reviewed -General nutrition recommendations reviewed: 5 servings of fruits and vegetables, adequate protein. -Exercise recommendations reviewed: 150 minutes of cardiovascular exercise weekly. At least two strength training sessions weekly for muscle mass and bone health. -Breast cancer screening discussed: Last mammogram: February 2023. Result: normal Any abnormal hx: no though has had biopsies, sister had breast cancer. Will schedule. -Colon cancer screening discussed: Last colonoscopy: 2019. Result: Redundant colon, melena, diverticulosis. Any abnormal hx: Polyps. Likely 3 year return. Refer back to Dr. Hodgson. -Cervical cancer screening discussed: Last pap: 67 years. Result: normal Any abnormal hx: no. No further screening. -Smoking cessation: NA -Lung Cancer Screening: NA -Abdominal Aortic Aneurysm: NA -Osteoporosis screening discussed: Last DEXA: 2022 Result: osteopenia. Sees endocrinology for Prolia. Will leave further screening to them. -Prediabetes and Type 2 Diabetes Screening: Negative -Hyperlipidemia screening: -Cardiovascular disease prevention (statin): ASCVD score: 6.1% -STI screening: Declined. -One lifetime HIV and Hep C test: Negative -IPV screen: NA -PHQ2: 2, GAD7: 6. -Immunizations reviewed: Due for TDAP and RSV. Will get at pharmacy. -Labs as ordered -Regular vision and dental exams recommended: UTD -Dermatology/sunscreen: Wears sun protection daily, does see dermatology. -Calcium with Vitamin D recommendations reviewed: 800 international units of vitamin D daily and 1200 mg elemental calcium in post menopausal women -Living will/MOLST/HCP: Paperwork provided. -Annual physical exam recommended At risk for heart disease 06/07/2024 Assessment & Plan (06/07/2024 2:55 PM EDT): ASCVD was 6.1%. Patient's lipid panel looks good in terms of LDL, HDL though triglycerides are high. Father had first heart attack at 41 years old. Had recent extensive lipid blood work done that showed some elevated levels of lipids. Would like to further stratify risk. Will get CT calcium score. Patient is following up with cardiology in June. Long-term use of Plaquenil 09/24/2023 Assessment & Plan (01/14/2025 3:57 PM EDT): Take exactly as prescribed. Daily sun protection all year-round. Follow with child day care teacher every 12 months. Assessment & Plan (07/12/2024 3:37 PM EST): Take exactly as prescribed. Daily sun protection all year-round. Follow with child day care teacher every 12 months. Assessment & Plan (01/07/2024 1:12 PM EDT): Take exactly as prescribed. Daily sun protection all year-round. Follow with child day care teacher every 12 months. Assessment & Plan (09/24/2023 1:40 PM EST): Take exactly as prescribed. Daily sun protection all year-round. Follow with child day care teacher every 12 months. Undifferentiated connective tissue disease 09/24 Assessment & Plan (02/13/2025 7:22 PM EDT): There is a history of positive BRANDYN at 1: 1280 in a speckled pattern in 2007 however no other abnormalities suggestive for any specific systemic rheumatic disease. Repeated tests in 2010 revealed BRANDYN at 1: 80 in a speckled pattern. She credits the improvement to Plaquenil therapy. Continue Eliquis as prescribed and follow yearly with child day care teacher or earlier if problems. Avoid falls, injuries, overuse and sick contacts. Keep up-to-date with age-appropriate screenings and preventive strategies. Regular exercises, relaxation and meditation sessions. Assessment & Plan (07/12/2024 3:37 PM EST): There is a history of positive BRANDYN at 1: 1280 in a speckled pattern in 2007 however no other abnormalities suggestive for any specific systemic rheumatic disease. Repeated tests in 2010 revealed BRANDYN at 1: 80 in a speckled pattern. She credits the improvement to Plaquenil therapy. Continue Eliquis as prescribed and follow yearly with child day care teacher or earlier if problems. Avoid falls, injuries, overuse and sick contacts. Keep up-to-date with age-appropriate screenings and preventive strategies. Regular exercises, relaxation and meditation sessions. Assessment & Plan (01/07/2024 1:11 PM EDT): There is a history of positive BRANDYN at 1: 1280 in a speckled pattern in 2007 however no other abnormalities suggestive for any specific systemic rheumatic disease. Repeated tests in 2010 revealed BRANDYN at 1: 80 in a speckled pattern. She credits the improvement to Plaquenil therapy. Continue Eliquis as prescribed and follow yearly with child day care teacher or earlier if problems. Avoid falls, injuries, overuse and sick contacts. Keep up-to-date with age-appropriate screenings and preventive strategies. Regular exercises, relaxation and meditation sessions. Assessment & Plan (09/24/2023 9:10 PM EST): There is a history of positive BRANDYN at 1: 1280 in a speckled pattern in 2007 however no other abnormalities suggestive for any specific systemic rheumatic disease. Repeated tests in 2010 revealed BRANDYN at 1: 80 in a speckled pattern. She credits the improvement to Plaquenil therapy. Continue Eliquis as prescribed and follow yearly with child day care teacher or earlier if problems. Avoid falls, injuries, overuse and sick contacts. Keep up-to-date with age-appropriate screenings and preventive strategies. Regular exercises, relaxation and meditation sessions. Iron disorder 09/24/2023 Assessment & Plan (09/24/2023 9:11 PM EST): Couple of years ago she was found with high iron and iron saturation and is worried about the possible risk of hemochromatosis due to her [place] ancestry. Anxiety and depression 07/31/2023 Assessment & Plan (08/24/2023 4:12 PM EST): Patient reports anxiety related to her age, taking care of herself and her son who has struggled due to autism and other health issues. Sees both a therapist and prescriber. -Takes Wellbutrin 150 mg daily, lorazepam as needed. Fibromyalgia 07/31/2023 Assessment & Plan (08/24/2023 4:22 PM EST): Stable. Gabapentin helps. Mild intermittent asthma without complication Assessment & Plan (08/21/2023 2:35 PM EST): Very well controlled and mild. Uses albuterol inhaler as needed, usually a couple times a year. Obstructive sleep apnea syndrome 07/31/2023 Overview (07/31/2023): [place], [place] PSG's: 09/29/09, AHI 62.9. 10/03/09: CPAP at 8 cm H2O reduced AHI to 3.1. 09/27/11: AHI 43.6; CPAP at 8 cm H2O reduced AHI to 2.0. [facility] HST, 12/09/17: AHI 20.1, RDI 21, with SPO2 caroline 80% with 6 minutes <89%. [place], [place] PSG's: 09/29/09, AHI 62.9. 10/03/09: CPAP at 8 cm H2O reduced AHI to 3.1. 09/27/11: AHI 43.6; CPAP at 8 cm H2O reduced AHI to 2.0. [facility] HST, 12/09/17: AHI 20.1, RDI 21, with SPO2 caroline 80% with 6 minutes <89%. Assessment & Plan (08/24/2023 4:24 PM EST): Diagnosed in 2009. Stable. Uses CPAP. Peripheral nerve disease 07/31/2023 Assessment & Plan (08/24/2023 4:25 PM EST): Unclear etiology. Gets worse over the course of the day. Uses gabapentin 250 mg nightly. Disorder of sacrum 05/15/2023 Assessment & Plan (08/24/2023 4:15 PM EST): Sees Dr. Fonseca for SI dysfunction. She wears a belt and does regular exercises. Dr. Donohue recommended a pool exercise program. Patient is requesting referral to PT as well. This was placed. Assessment & Plan (07/01/2023 9:27 PM EST): Continue wearing SI belt & regular exercise routine to prevent muscle weakness, misalignment & subsequent pain. Try warm pool exercise program such as [email or web address] in [place]. Pain of right hip 01/17/2023 Assessment & Plan (02/25/2025 5:33 PM EDT): Intermittent right hip pain, possibly gluteal tendinopathy or referred pain. Previous injection for similar symptoms on L provided limited relief. Open to new physical therapy provider. - Refer to physical therapy for hip and low back pain management. Encounter for monitoring denosumab therapy 06/24 Assessment & Plan (02/13/2025 7:25 PM EDT): Reminded to get chemistry profile within 30 days of each every 6 months subcutaneous Prolia injections-standing orders in [facility]. Assessment & Plan (07/12/2024 3:37 PM EST): Reminded to get monitoring labs-CMP and vitamin D within 30 days of each every 6 months Prolia injection-standing orders in [facility]. Assessment & Plan (01/07/2024 1:12 PM EDT): Reminded to get monitoring labs-CMP and vitamin D within 30 days of each every 6 months Prolia injection-standing orders in [facility]. Assessment & Plan (09/24/2023 1:39 PM EST): Reminded to get monitoring labs-CMP and vitamin D within 30 days of each every 6 months Prolia injection-standing orders in [facility]. Assessment & Plan (06/30/2023 3:18 PM EST): Reminded to get monitoring labs-CMP and vitamin D within 30 days of each every 6 months Prolia injection-standing orders in [facility]. Assessment & Plan (03/21/2023 11:28 AM EDT): Reminded to get monitoring labs-CMP and vitamin D within 30 days of each every 6 months Prolia injection-standing orders in [facility]. Assessment & Plan (12/27/2022 1:39 PM EDT): Reminded to get monitoring labs-CMP and vitamin D within 30 days of each every 6 months Prolia injection-standing orders in [facility]. Assessment & Plan (07/13/2022 5:31 PM EST): Reminded to get monitoring labs-CMP and vitamin D within 30 days of each every 6 months Prolia injection-standing orders in [facility]. SLE-Sjogren overlap syndrome 05/02/2022 Migraine 05/02/2022 Assessment & Plan (08/24/2023 4:28 PM EST): Every once in a while at this point. Gets migraines around 4 times a month. Takes fiorcet as needed. Sensitivity to light. No aura. Cognitive changes 03/13/2022 Assessment & Plan (08/24/2023 4:13 PM EST): Age related. Forgets words. Generally still able to care for herself and her son. Can consider referral to geriatrics in the future as needed and desired.. Hyperlipidemia 03/13/2022 Assessment & Plan (12/09/2024 3:29 PM EDT): Encouraged her to continue statin until we get the CT calcium score. Recent CTA abdomen did show some atherosclerosis there. She will be seeing cardiology in February. Insomnia 03/13/2022 Assessment & Plan (08/21/2023 2:30 PM EST): Uses Ambien very rarely as needed. Trochanteric bursitis of both hips 03/08/2022 Assessment & Plan (08/24/2023 4:26 PM EST): L>RLou Seemartha Fonseca. Is interested in PT and referral was sent today. Assessment & Plan (03/25/2022 10:53 PM EDT): Use warm packs versus warm shower prior to gentle, regular ROM, stretching and muscle strengthening exercises. Pamphlet with pictures and detailed instructions printed for home use today. She may benefit from topical cream such as Arnica, Biofreeze, Aspercreme, Voltaren versus medicated patches such as Salonpas or IcyHot patch may provide additional benefit. If interested and no significant improvement with above measures may need to consider formal PT with therapeutic ultrasound and/or iontophoresis. If symptoms persist despite all above measures local steroid injection will be considered. On statin therapy 03/08/2022 Assessment & Plan (02/13/2025 7:24 PM EDT): Monitor for muscle tenderness, swelling and weakness Assessment & Plan (01/08/2024 8:31 PM EDT): Monitor for muscle tenderness, swelling and weakness Assessment & Plan (06/24/2022 3:00 PM EST): Monitor for muscle tenderness, swelling and weakness Assessment & Plan (03/25/2022 10:54 PM EDT): Monitor for muscle tenderness, swelling and weakness Osteopenia of multiple sites 09/06/2021 Assessment & Plan (02/13/2025 7:40 PM EDT): According to bone density from 11/21/2022 at [facility] : L1-L4 T score: -1.7. This corresponds to osteopenia This represents a 6.4 % increase in bone density compared with prior exam from 11/20/2020. Left femoral neck T score: -2.3. This corresponds to osteopenia Left total hip T score: -2.1. This corresponds to osteopenia This represents a -2.3 % decrease in bone density compared with prior exam from 11/20/2020.. FRAX score: 10 year risk of major osteoporotic fracture 12%, 10 year risk of hip fracture 2.9% She has interval BMD scheduled at [facility] on 05/05/2025. Continue proper calcium and vitamin D supplementation. Daily weightbearing exercises. Fall and fracture prevention strategies. #1 Prolia on 06/24/2022, #2 Prolia on 12/27/2022, #3 Prolia on 06/30/2023, #4 Prolia on 01/07/2024, #5 Prolia on 07/12/2024. She is ready for #6 Prolia today: Procedure: After an informed oral consent, under sterile conditions I have injected 60 mg Prolia subcutaneously into Left arm uneventfully. OFFICE SUPPLY Assessment & Plan (07/16/2024 9:29 PM EST): According to bone density from 11/21/2022 at [facility] : L1-L4 T score: -1.7. This corresponds to osteopenia This represents a 6.4 % increase in bone density compared with prior exam from 11/20/2020.. Left femoral neck T score: -2.3. This corresponds to osteopenia Left total hip T score: -2.1. This corresponds to osteopenia This represents a -2.3 % decrease in bone density compared with prior exam from 11/20/2020.. FRAX score: 10 year risk of major osteoporotic fracture 12%, 10 year risk of hip fracture 2.9% Continue proper calcium and vitamin D supplementation. Daily weightbearing exercises. Fall and fracture prevention strategies. She was due for every 6 months subcutaneous Prolia on 12/30/2023 that she postponed and is ready for it today: Procedure: After an informed oral consent, under sterile conditions I have injected 60 mg Prolia subcutaneously into Right arm uneventfully. OFFICE SUPPLY Provider: Janina Donohue MD Patient: Riddhi Marley : 1950 Date: 07/12/2024 . Assessment & Plan (01/08/2024 8:31 PM EDT): According to bone density from 11/21/2022 at [facility] : L1-L4 T score: -1.7. This corresponds to osteopenia This represents a 6.4 % increase in bone density compared with prior exam from 11/20/2020.. Left femoral neck T score: -2.3. This corresponds to osteopenia Left total hip T score: -2.1. This corresponds to osteopenia This represents a -2.3 % decrease in bone density compared with prior exam from 11/20/2020.. FRAX score: 10 year risk of major osteoporotic fracture 12%, 10 year risk of hip fracture 2.9% Continue proper calcium and vitamin D supplementation. Daily weightbearing exercises. Fall and fracture prevention strategies. She was due for every 6 months subcutaneous Prolia on 12/30/2023 that she postponed and is ready for it today: Procedure: After an informed oral consent, under sterile conditions I have injected 60 mg Prolia subcutaneously into Left arm uneventfully. OFFICE SUPPLY Provider: Janina Donohue MD Patient: Riddhi Marley : 1950 Date: 01/07/2024 . Assessment & Plan (09/24/2023 2:09 PM EST): According to bone density from 11/21/2022 at [facility] : L1-L4 T score: -1.7. This corresponds to osteopenia This represents a 6.4 % increase in bone density compared with prior exam from 11/20/2020.. Left femoral neck T score: -2.3. This corresponds to osteopenia Left total hip T score: -2.1. This corresponds to osteopenia This represents a -2.3 % decrease in bone density compared with prior exam from 11/20/2020.. FRAX score: 10 year risk of major osteoporotic fracture 12%, 10 year risk of hip fracture 2.9% Continue proper calcium and vitamin D supplementation. Daily weightbearing exercises. Fall and fracture prevention strategies. She is due for every 6 months subcutaneous Prolia on 12/30/2023: . Assessment & Plan (08/24/2023 4:16 PM EST): Sees rheumatology for Prolia injections every 6-month. Takes vitamin D and calcium. Assessment & Plan (07/01/2023 9:19 PM EST): According to bone density from 11/21/2022 at [facility] : L1-L4 T score: -1.7. This corresponds to osteopenia This represents a 6.4 % increase in bone density compared with prior exam from 11/20/2020.. Left femoral neck T score: -2.3. This corresponds to osteopenia Left total hip T score: -2.1. This corresponds to osteopenia This represents a -2.3 % decrease in bone density compared with prior exam from 11/20/2020.. FRAX score: 10 year risk of major osteoporotic fracture 12%, 10 year risk of hip fracture 2.9% Continue proper calcium and vitamin D supplementation. Daily weightbearing exercises. Fall and fracture prevention strategies. She is due for every 6 months subcutaneous Prolia on 06/30/2023: Procedure: After an informed oral consent, under sterile conditions I have injected 60 mg Prolia subcutaneously into Left arm approach uneventfully. OFFICE SUPPLY Provider: Janina Donohue MD Patient: Riddhi Marley : 1950 Date: 07/01/2023 . Assessment & Plan (03/22/2023 8:50 PM EDT): According to bone density from 11/21/2022 at [facility] : L1-L4 T score: -1.7. This corresponds to osteopenia This represents a 6.4 % increase in bone density compared with prior exam from 11/20/2020.. Left femoral neck T score: -2.3. This corresponds to osteopenia Left total hip T score: -2.1. This corresponds to osteopenia This represents a -2.3 % decrease in bone density compared with prior exam from 11/20/2020.. FRAX score: 10 year risk of major osteoporotic fracture 12%, 10 year risk of hip fracture 2.9% Continue proper calcium and vitamin D supplementation. Daily weightbearing exercises. Fall and fracture prevention strategies. She is due for every 6 months subcutaneous Prolia on 06/30/2023. Assessment & Plan (12/27/2022 1:40 PM EDT): According to bone density from 11/20/2020 at [facility] she has diffuse osteopenia within the lumbar spine and both hips. Comparing to prior study from 06/05/2016 10-year risk fracture appears 13% for major osteoporotic fracture with 2.6% of hip fracture. Proper calcium and vitamin D supplementation. Daily weightbearing exercises. Fall and fracture prevention strategies. She is ready for every 6 months subcutaneous Prolia today: Procedure: After an informed oral consent, under sterile conditions I have injected 60 mg Prolia subcutaneously into Left arm uneventfully. Details of post-procedure care were explained to the patient in the office and given in writing. OFFICE SUPPLY Assessment & Plan (07/13/2022 5:30 PM EST): According to bone density from 11/20/2020 at [facility] she has diffuse osteopenia within the lumbar spine and both hips. Comparing to prior study from 06/05/2016 10-year risk fracture appears 13% for major osteoporotic fracture with 2.6% of hip fracture. Proper calcium and vitamin D supplementation. Daily weightbearing exercises. Fall and fracture prevention strategies. She is ready for every 6 months subcutaneous Prolia today: Procedure: After an informed oral consent, under sterile conditions I have injected 60 mg Prolia subcutaneously into Left arm uneventfully. Details of post-procedure care were explained to the patient in the office and given in writing. OFFICE SUPPLY Assessment & Plan (03/08/2022 2:10 PM EDT): According to bone density from 11/20/2020 at [facility] she has diffuse osteopenia within the lumbar spine and both hips. Comparing to prior study from 06/05/2016 10-year risk fracture appears 13% for major osteoporotic fracture with 2.6% of hip fracture. Proper calcium and vitamin D supplementation. Daily weightbearing exercises. Fall and fracture prevention strategies. She is leaning forward toward getting every 6 months subcutaneous Prolia Assessment & Plan (12/11/2021 6:09 PM EDT): According to bone density from 11/20/2020 at [facility] she has diffuse osteopenia within the lumbar spine and both hips. Comparing to prior study from 06/05/2016 10-year risk fracture appears 13% for major osteoporotic fracture with 2.6% of hip fracture. Proper calcium and vitamin D supplementation. Daily weightbearing exercises. Fall and fracture prevention strategies. She is leaning forward toward getting every 6 months subcutaneous Prolia Assessment & Plan (09/08/2021 10:26 PM EST): Proper calcium and vitamin D supplementation. Daily weightbearing exercises. Fall and fracture prevention strategies. Vitamin D insufficiency 09/06/2021 Assessment & Plan (01/14/2025 3:57 PM EDT): Continue proper supplementation to optimize serum level at: 40-45 ng/ml Assessment & Plan (01/08/2024 8:31 PM EDT): Continue proper supplementation to optimize serum level at: 40-45 ng/ml Assessment & Plan (06/30/2023 3:18 PM EST): Continue proper supplementation to optimize serum level at: 40-45 ng/ml Assessment & Plan (12/27/2022 1:44 PM EDT): Continue proper supplementation to optimize serum level at: 40-45 ng/ml Assessment & Plan (06/24/2022 3:01 PM EST): Continue proper supplementation to optimize serum level at: 40-45 ng/ml Assessment & Plan (09/08/2021 10:24 PM EST): Continue proper supplementation to optimize serum level at: 40-45 ng/ml Carpal tunnel syndrome of right wrist 02/12/2021 Assessment & Plan (07/16/2024 9:30 PM EST): Avoid prolonged repetitive use. Use neutral wrist splint for extended activities and nighttime as needed. If symptoms progress despite above strategies may need to consider local steroid injection versus surgical release. Assessment & Plan (08/24/2023 4:14 PM EST): Stable. Has exercises as given by OT. Assessment & Plan (02/20/2021 10:49 PM EDT): Avoid prolonged, repetitive motions, heavy lifting, pulling or pushing with right wrist. Use the splint for nighttime and extended activities. Gentle, regular exercise routine as educated by OT. Get appropriate assistive devices as educated by OT. Other forms of systemic lupus erythematosus 10/17 Assessment & Plan (08/24/2023 4:17 PM EST): Seen by rheumatology. Disease is stable at this time. Takes hydroxychloroquine 200 mg daily. Assessment & Plan (07/01/2023 9:13 PM EST): Keep well-hydrated. Well-balanced nutritionally diet. Sleep hygiene. Follow diligently age-appropriate screenings and preventive strategies. Regular gentle exercise routine. Keep engaged in regular hobbies/favorite activities. Call if problems or questions Assessment & Plan (03/26/2023 5:55 AM EDT): There is a note visible from her cold saw operator suggesting that symptoms could be a flare of her rheumatologic disease and encouraging her to increase back to daily Plaquenil Will need to see if she is agreeable to this if MRI is indeed negative. Assessment & Plan (03/22/2023 8:47 PM EDT): Carefully continue Plaquenil 200 mg every other day. Keep well-hydrated. Well-balanced nutritionally diet. Sleep hygiene. Close follow-up with child day care teacher to monitor ocular side effects from Plaquenil. Follow diligently age-appropriate screenings and preventive strategies. Regular gentle exercise routine. Keep engaged in regular hobbies/favorite activities. Return for regular checkups at least every 3 months or earlier if problems. Assessment & Plan (12/27/2022 1:37 PM EDT): Carefully continue Plaquenil 200 mg daily. Keep well-hydrated. Well-balanced nutritionally diet. Sleep hygiene. Close follow-up with child day care teacher to monitor ocular side effects from Plaquenil. Follow diligently age-appropriate screenings and preventive strategies. Regular gentle exercise routine. Keep engaged in regular hobbies/favorite activities. Return for regular checkups at least every 2-3 months or earlier if problems. Assessment & Plan (06/24/2022 2:53 PM EST): Carefully continue Plaquenil 200 mg daily. Keep well-hydrated. Well-balanced nutritionally diet. Sleep hygiene. Close follow-up with child day care teacher to monitor ocular side effects from Plaquenil. Follow diligently age-appropriate screenings and preventive strategies. Regular gentle exercise routine. Keep engaged in regular hobbies/favorite activities. Return for regular checkups at least every 2-3 months or earlier if problems. Assessment & Plan (03/08/2022 2:07 PM EDT): Carefully continue Plaquenil 200 mg daily. Keep well-hydrated. Well-balanced nutritionally diet. Sleep hygiene. Close follow-up with child day care teacher to monitor ocular side effects from Plaquenil. Follow diligently age-appropriate screenings and preventive strategies. Regular gentle exercise routine. Keep engaged in regular hobbies/favorite activities. Return for regular checkups at least every 2-3 months or earlier if problems. Assessment & Plan (12/05/2021 2:13 PM EDT): Carefully continue Plaquenil 200 mg daily. Keep well-hydrated. Well-balanced nutritionally diet. Sleep hygiene. Close follow-up with child day care teacher to monitor ocular side effects from Plaquenil. Follow diligently age-appropriate screenings and preventive strategies. Regular gentle exercise routine. Keep engaged in regular hobbies/favorite activities. Return for regular checkups at least every 2-3 months or earlier if problems. Assessment & Plan (09/08/2021 10:25 PM EST): Carefully continue Plaquenil 200 mg daily. Keep well-hydrated. Well-balanced nutritionally diet. Sleep hygiene. Close follow-up with child day care teacher to monitor ocular side effects from Plaquenil. Follow diligently age-appropriate screenings and preventive strategies. Regular gentle exercise routine. Keep engaged in regular hobbies/favorite activities. Return for regular checkups at least every 2-3 months or earlier if problems. Assessment & Plan (05/17/2021 10:29 PM EDT): Carefully continue Plaquenil 200 mg daily. Keep well-hydrated. Well-balanced nutritionally diet. Sleep hygiene. Close follow-up with child day care teacher to monitor ocular side effects from Plaquenil. Follow diligently age-appropriate screenings and preventive strategies. Regular gentle exercise routine. Get yearly influenza vaccine by mid May 2021. Keep engaged in regular hobbies/favorite activities. Return for regular checkups at least every 2-3 months or earlier if problems. Assessment & Plan (02/12/2021 3:21 PM EDT): Carefully continue Plaquenil 200 mg daily. Keep well-hydrated. Well-balanced nutritionally diet. Sleep hygiene. Close follow-up with child day care teacher to monitor ocular side effects from Plaquenil. Follow diligently age-appropriate screenings and preventive strategies. Regular gentle exercise routine. Keep engaged in regular hobbies/favorite activities. Return for regular checkups at least every 2-3 months or earlier if problems. Assessment & Plan (12/11/2020 2:57 PM EDT): Carefully continue Plaquenil 200 mg daily. Keep well-hydrated. Well-balanced nutritionally diet. Sleep hygiene. Close follow-up with child day care teacher to monitor ocular side effects from Plaquenil. Follow diligently age-appropriate screenings and preventive strategies. Regular gentle exercise routine. Keep engaged in regular hobbies/favorite activities. Return for regular checkups at least every 2-3 months or earlier if problems. Assessment & Plan (11/15/2020 10:54 PM EDT): Carefully continue Plaquenil 200 mg daily. Keep well-hydrated. Well-balanced nutritionally diet. Sleep hygiene. Close follow-up with child day care teacher to monitor ocular side effects from Plaquenil. Follow diligently age-appropriate screenings and preventive strategies. Regular gentle exercise routine. Keep engaged in regular hobbies/favorite activities. Return for regular checkups at least every 2-3 months or earlier if problems. Antiphospholipid antibody positive 11/09/2020 Assessment & Plan (01/14/2025 3:57 PM EDT): No history of thrombotic events except for 1 first trimester miscarriage. If low titer or negative no reason to worry if high titer repeatedly may need to consider anticoagulation/antithrombotic therapy Assessment & Plan (07/12/2024 3:38 PM EST): No history of thrombotic events except for 1 first trimester miscarriage. If low titer or negative no reason to worry if high titer repeatedly may need to consider anticoagulation/antithrombotic therapy Assessment & Plan (01/07/2024 1:12 PM EDT): No history of thrombotic events except for 1 first trimester miscarriage. If low titer or negative no reason to worry if high titer repeatedly may need to consider anticoagulation/antithrombotic therapy Assessment & Plan (09/24/2023 1:39 PM EST): No history of thrombotic events except for 1 first trimester miscarriage. If low titer or negative no reason to worry if high titer repeatedly may need to consider anticoagulation/antithrombotic therapy Assessment & Plan (08/24/2023 4:12 PM EST): No history of thrombotic events except for a first trimester miscarriage. Followed by rheumatology. Assessment & Plan (06/30/2023 3:17 PM EST): No history of thrombotic events except for 1 first trimester miscarriage. If low titer or negative no reason to worry if high titer repeatedly may need to consider anticoagulation/antithrombotic therapy Assessment & Plan (03/21/2023 11:27 AM EDT): No history of thrombotic events except for 1 first trimester miscarriage. If low titer or negative no reason to worry if high titer repeatedly may need to consider anticoagulation/antithrombotic therapy Assessment & Plan (12/27/2022 1:39 PM EDT): No history of thrombotic events except for 1 first trimester miscarriage. If low titer or negative no reason to worry if high titer repeatedly may need to consider anticoagulation/antithrombotic therapy Assessment & Plan (06/24/2022 2:59 PM EST): No history of thrombotic events except for 1 first trimester miscarriage. If low titer or negative no reason to worry if high titer repeatedly may need to consider anticoagulation/antithrombotic therapy Assessment & Plan (03/08/2022 2:09 PM EDT): No history of thrombotic events except for 1 first trimester miscarriage. If low titer or negative no reason to worry if high titer repeatedly may need to consider anticoagulation/antithrombotic therapy Assessment & Plan (12/05/2021 2:14 PM EDT): No history of thrombotic events except for 1 first trimester miscarriage. If low titer or negative no reason to worry if high titer repeatedly may need to consider anticoagulation/antithrombotic therapy Assessment & Plan (09/06/2021 11:53 AM EST): No history of thrombotic events except for 1 first trimester miscarriage. If low titer or negative no reason to worry if high titer repeatedly may need to consider anticoagulation/antithrombotic therapy Assessment & Plan (05/09/2021 3:45 PM EDT): No history of thrombotic events except for 1 first trimester miscarriage. If low titer or negative no reason to worry if high titer repeatedly may need to consider anticoagulation/antithrombotic therapy Assessment & Plan (02/12/2021 3:18 PM EDT): No history of thrombotic events except for 1 first trimester miscarriage. If low titer or negative no reason to worry if high titer repeatedly may need to consider anticoagulation/antithrombotic therapy Assessment & Plan (12/11/2020 2:59 PM EDT): No history of thrombotic events except for 1 first trimester miscarriage. If low titer or negative no reason to worry if high titer repeatedly may need to consider anticoagulation/antithrombotic therapy Assessment & Plan (11/15/2020 10:58 PM EDT): No history of thrombotic events except for 1 first trimester miscarriage. If low titer or negative no reason to worry if high titer repeatedly may need to consider anticoagulation/antithrombotic therapy Sclerosing mesenteritis 11/09/2020 Assessment & Plan (03/23/2024 6:08 PM EDT): Presumptive diagnosis of sclerosing mesenteritis, sees gastroenterology at [facility]. She did have a monitoring CT that was planned for November 2023. Now has had a couple episodes of new sharp abdominal pain. No other new or concerning symptoms. Given patient's history I inclined to have her pursue imaging. She already has a CT abdomen pelvis ordered by her coverstitch machine operator and I strongly encouraged her to schedule this to rule out any intra-abdominal pathology. She is concerned about the possibility of a diaphragmatic hernia and I mentioned that if notation of this is specifically requested by the ordering provider, radiology can comment on this finding in their imaging. I would like her to also let her GI doctor know her new symptoms. Finally, in regards to her establishing care locally, I think this is appropriate but I would like to her to continue care with [facility] until she is able to have a new patient visit at [facility]. Assessment & Plan (08/24/2023 4:21 PM EST): Patient has quite a bit of pain and nausea, especially at night. She will have a CT abdomen and [place] of this coming year. Plan for repeat EGD in 2024 and colonoscopy in 2026. Takes gabapentin for the pain which is helpful. She takes Citrucel 1000 mg twice daily and hydroxyzine 25 mg as needed. She is his pentoxifylline and eats a low FODMAP diet. She follows up with GI every [address] Cervantes at [facility] and sees someone at [facility]. Assessment & Plan (03/08/2022 2:08 PM EDT): Well-balanced nutritionally diet and proper hydration. Avoid known triggers. Assessment & Plan (12/05/2021 2:13 PM EDT): Well-balanced nutritionally diet and proper hydration. Avoid known triggers. Assessment & Plan (09/08/2021 10:25 PM EST): Well-balanced nutritionally diet and proper hydration. Avoid known triggers. Assessment & Plan (05/09/2021 3:43 PM EDT): Well-balanced nutritionally diet and proper hydration. Avoid known triggers. Assessment & Plan (02/12/2021 3:23 PM EDT): Well-balanced nutritionally diet and proper hydration. Avoid known triggers. Assessment & Plan (12/11/2020 2:57 PM EDT): Well-balanced nutritionally diet and proper hydration. Avoid known triggers. Assessment & Plan (11/15/2020 10:55 PM EDT): Well-balanced nutritionally diet and proper hydration. Avoid known triggers. Raynaud phenomenon 12/15/2018 Assessment & Plan (01/14/2025 3:57 PM EDT): Keep warm, dress in layers. Optimize stress management strategies. Avoid vasoconstrictors in OTC products for cold/flu and sinus. Assessment & Plan (07/12/2024 4:04 PM EST): Keep warm, dress in layers. Optimize stress management strategies. Avoid vasoconstrictors in OTC products for cold/flu and sinus. Assessment & Plan (08/24/2023 4:18 PM EST): Stable. Sees rheumatology. Encouraged to keep warm and to avoid vasoconstricting medications. Assessment & Plan (12/27/2022 1:41 PM EDT): Keep warm, dress in layers. Optimize stress management strategies. Avoid vasoconstrictors in OTC products for cold/flu and sinus. Assessment & Plan (03/08/2022 2:11 PM EDT): Keep warm, dress in layers. Optimize stress management strategies. Avoid vasoconstrictors in OTC products for cold/flu and sinus. Assessment & Plan (12/05/2021 2:16 PM EDT): Keep warm, dress in layers. Optimize stress management strategies. Avoid vasoconstrictors in OTC products for cold/flu and sinus. Assessment & Plan (02/12/2021 3:20 PM EDT): Keep warm, dress in layers. Optimize stress management strategies. Avoid vasoconstrictors in OTC products for cold/flu and sinus. Assessment & Plan (12/11/2020 2:58 PM EDT): Keep warm, dress in layers. Optimize stress management strategies. Avoid vasoconstrictors in OTC products for cold/flu and sinus. Assessment & Plan (11/15/2020 10:57 PM EDT): Keep warm, dress in layers. Optimize stress management strategies. Avoid vasoconstrictors in OTC products for cold/flu and sinus. Hypertriglyceridemia, familial 12/15/2018 Assessment & Plan (08/24/2023 4:22 PM EST): Takes atorvastatin 20 mg daily. Last lipid panel in February of this year. Assessment & Plan (12/11/2021 5:56 PM EDT): Close follow-up with treating PCP versus pharmacy delivery driver to bring it into normal range. Assessment & Plan (02/12/2021 3:18 PM EDT): Close follow-up with treating PCP versus pharmacy delivery driver to bring it into normal range. Assessment & Plan (12/11/2020 2:59 PM EDT): Close follow-up with treating PCP versus pharmacy delivery driver to bring it into normal range. Assessment & Plan (11/15/2020 10:52 PM EDT): Close follow-up with treating PCP versus pharmacy delivery driver to bring it into normal range. Sjogren's syndrome 06/23/2017 Assessment & Plan (08/24/2023 4:25 PM EST): Stable. Sees rheumatology. Keeps up with regular dental and eye exams. Assessment & Plan (07/01/2023 9:12 PM EST): Keep well-hydrated. Avoid spicy and acidic foods. Diligent eyes and mouth hygiene. Regular ocular and dental checkups. Assessment & Plan (06/24/2022 2:59 PM EST): Carefully continue Plaquenil 200 mg daily, Keep well-hydrated. Avoid spicy and acidic foods. Diligent eyes and mouth hygiene. Regular ocular and dental checkups. Assessment & Plan (03/08/2022 2:08 PM EDT): Carefully continue Plaquenil 200 mg daily, Keep well-hydrated. Avoid spicy and acidic foods. Diligent eyes and mouth hygiene. Regular ocular and dental checkups. Assessment & Plan (12/05/2021 2:13 PM EDT): Carefully continue Plaquenil 200 mg daily, Keep well-hydrated. Avoid spicy and acidic foods. Diligent eyes and mouth hygiene. Regular ocular and dental checkups. Assessment & Plan (09/08/2021 10:25 PM EST): Carefully continue Plaquenil 200 mg daily, Keep well-hydrated. Avoid spicy and acidic foods. Diligent eyes and mouth hygiene. Regular ocular and dental checkups. Assessment & Plan (05/09/2021 3:43 PM EDT): Carefully continue Plaquenil 200 mg daily, Keep well-hydrated. Avoid spicy and acidic foods. Diligent eyes and mouth hygiene. Regular ocular and dental checkups. Assessment & Plan (02/12/2021 3:23 PM EDT): Carefully continue Plaquenil 200 mg daily, Keep well-hydrated. Avoid spicy and acidic foods. Diligent eyes and mouth hygiene. Regular ocular and dental checkups. Assessment & Plan (12/11/2020 2:57 PM EDT): Carefully continue Plaquenil 200 mg daily, Keep well-hydrated. Avoid spicy and acidic foods. Diligent eyes and mouth hygiene. Regular ocular and dental checkups. Assessment & Plan (11/15/2020 10:53 PM EDT): Carefully continue Plaquenil 200 mg daily, Keep well-hydrated. Avoid spicy and acidic foods. Diligent eyes and mouth hygiene. Regular ocular and dental checkups. Vaginal pessary present 06/23/2017 Overview (12/25/2020): #4 ring Assessment & Plan (12/25/2020 3:25 PM EDT): Riddhi given new pessary today. Advised ok to remove pessary when using incontinence device. Referral entered for Urogyn to discuss surgery when acute GI issues are stable. Assessment & Plan (06/26/2018 1:55 PM EST): Encouraged pt to consider coming in for office visit to remove/replace pessary due to distress and discomfort with self care. Advised smaller pessary would not support prolapse as well and different shape would be more difficult to remove. Assessment & Plan (06/23/2017 9:44 AM EST): Reviewed options - Riddhi prefers to continue with a pessary for management but would like to consider a different shape/size as she is uncomfortable with removal/replacement. She will schedule a follow up for repeat fitting - could try ring with support. Vaginal atrophy 06/23/2017 Assessment & Plan (08/24/2023 4:26 PM EST): Uses Estrace. Assessment & Plan (12/25/2020 3:25 PM EDT): Continue Estrace. Assessment & Plan (06/26/2018 1:56 PM EST): Continue Estrace. Discussed use of coconut oil as moisture barrier/lubricant. Assessment & Plan (06/23/2017 9:44 AM EST): Estrace refilled, discussed daily use of coconut oil as moisture barrier/skin protectant. Urinary incontinence Assessment & Plan (08/21/2023 2:41 PM EST): Seeing Dr. Whitaker of urogynecology. Has done pelvic floor PT. Has a pessary in place. Assessment & Plan (12/12/2020 11:08 PM EDT): If not better with regular Kegel's exercises may need to consider formal urogynecology consult. Resolved Problems Problem Noted Date Diagnosed Date Resolved Date Abdominal pain 03/23/2024 12/01/2024 Statin declined 01/07/2024 01/07/2024 Cataract 07/31/2023 08/21/2023 Dry eyes 07/31/2023 07/31/2023 Family history of breast cancer in sister 07/31/2023 07/31/2023 Herpes simplex virus (HSV) infection 07/31/2023 08/21/2023 Change in pigmented skin lesion 07/31/2023 07/31/2023 Osteopenia 07/31/2023 08/04/2023 Overview (07/31/2023): followed by [facility] Rheum, Dr Cifuentes Vitamin D deficiency 07/31/2023 Greater trochanteric bursitis of left hip 05/15/2023 08/04/2023 Sacroiliitis 05/06/2023 08/21/2023 Right sided weakness 03/26/2023 023 Assessment & Plan (03/26/2023 5:38 AM EDT): MRI in the AM Telemetry admission, ECHO and Holtor monitor will need to be ordered if MRI is positive (not yet ordered as neuro felt low risk) Asa 81 daily Pt is already on a statin Get lipid profile and A1C in AM Ischial bursitis of left side 03/21/2023 08/21/2023 Assessment & Plan (03/22/2023 8:52 PM EDT): Avoid prolonged sitting on hard surfaces. Gentle, regular ROM, itching and muscle strengthening preceded by warm pack or warm shower. Additional benefit may be achieved from regular warm pool therapy such as at local [facility] versus [facility] in [place], [place]. Hamstring tendonitis 01/17/2023 IBS (irritable bowel syndrome) 01/17/2023 08/21/2023 Asthma 10/20/2022 08/24/2023 Assessment & Plan (08/24/2023 4:13 PM EST): Very stable. Rarely uses her albuterol inhaler. Leg cramps 10/20/2022 08/04/2023 Other general symptoms and signs 10/16/2022 08/21/2023 Overview (07/31/2023): 10/20/2022 17:07 EST - Omega MARTIN, Lisa Lindquist 07/2022, mildly abnormal on the left Osteopenia 10/16/2022 08/04/2023 Overview (07/31/2023): followed by [facility] RheumDr Cifuentes Asthma exacerbation 09/04/2022 07/31/20 23 Family history of ischemic h eart disease and other diseases of the circulatory system 03/13/2022 07/31/2023 Overview (07/31/2023): 03/13/2022 13:46 EDT - Omega MARTIN, Lisa Lindquist father with [place] in his 40's Depressive disorder 03/13/2022 07/31/20 Overview (07/31/2023): 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 Avoid prolonged bending or extending of his neck. Proper posture during the day and for nighttime. Use topical products such as Arnica, Biofreeze, Aspercreme versus Voltaren gel 2-3 times daily and if needed at bedtime. Another alternative may be topical patches such as Salonpas or IcyHot patch. May need to consider formal PT if above measures unsuccessful. Itching 02/11/2022 08/04/2023 Sclerosing mesenteritis 02/11/202207/18 Hip pain, chronic, left 05/09/202107/18 Assessment & Plan (09/08/2021 10:25 PM EST): Avoid falls, injuries, overuse. Limit or avoid if needed walking up the hill and on uneven surfaces warm pack versus warm shower prior to gentle, regular exercise routine. Additional benefit may be achieved by exercising in a warm pool. Call if not better or worse to consider formal PT or local steroid injection. Assessment & Plan (05/17/2021 10:28 PM EDT): Avoid falls, injuries, overuse. Limit or avoid if needed walking up the hill and on uneven surfaces warm pack versus warm shower prior to gentle, regular exercise routine. Additional benefit may be achieved by exercising in a warm pool. Call if not better or worse to consider formal PT or local steroid injection. Hypervitaminosis D 02/12/2021 Assessment & Plan (02/20/2021 10:46 PM EDT): She is asked to hold vitamin D supplementation for a week and get serum concentration checked then. Weight loss 02/12/2021 08/21/2023 Assessment & Plan (02/20/2021 10:47 PM EDT): She lost 11 pounds since December 11/2021 unintentionally. Eat 5-6 smaller meals daily of well-balanced nutritionally diet fortified calorically. Long-term use of hydroxychloroquine 02/12/2021 07/01/2023 Assessment & Plan (06/30/2023 3:18 PM EST): Take exactly as prescribed. Daily sun protection all year round. Monitor for possible ocular side effects with child day care teacher at least every 12 months. Assessment & Plan (03/21/2023 11:28 AM EDT): Take exactly as prescribed. Daily sun protection all year round. Monitor for possible ocular side effects with child day care teacher at least every 12 months. Assessment & Plan (12/27/2022 1:40 PM EDT): Take exactly as prescribed. Daily sun protection all year round. Monitor for possible ocular side effects with child day care teacher at least every 12 months. Assessment & Plan (03/25/2022 10:54 PM EDT): Take exactly as prescribed. Daily sun protection all year round. Monitor for possible ocular side effects with child day care teacher at least every 12 months. Assessment & Plan (12/05/2021 2:15 PM EDT): Take exactly as prescribed. Daily sun protection all year round. Return for periodic checkups every 3 months or earlier if necessary. Monitor for possible ocular side effects with child day care teacher at least every 12 months. Assessment & Plan (09/06/2021 11:53 AM EST): Take exactly as prescribed. Daily sun protection all year round. Return for periodic checkups every 3 months or earlier if necessary. Monitor for possible ocular side effects with child day care teacher at least every 12 months. Assessment & Plan (05/09/2021 3:44 PM EDT): Take exactly as prescribed. Daily sun protection all year round. Return for periodic checkups every 3 months or earlier if necessary. Monitor for possible ocular side effects with child day care teacher at least every 12 months. Assessment & Plan (02/20/2021 10:50 PM EDT): Take exactly as prescribed. Daily sun protection all year round. Return for periodic checkups every 3 months or earlier if necessary. Monitor for possible ocular side effects with child day care teacher at least every 12 months. Diverticulosis 01/07/2019 07/31/2023 Antiphospholipid antibody syndrome 12/15/2018 11/15/2020 Phlebitis 12/15/2018 08/21/2023 Depression 12/15/2018 08/24/2023 Assessment & Plan (11/15/2020 10:56 PM EDT): Balance rest and activity. Remain engaged in regular exercise routine, hobbies and favorite activities. Take antidepressant exactly as prescribed and seek help if problems or questions as soon as they develop. Osteopenia 12/15/2018 09/06/2021 Assessment & Plan (02/12/2021 3:19 PM EDT): Proper calcium and vitamin D supplementation. Fall and fracture prevention strategies. Avoid falls, injuries and overuse. She has a history of treatment with Fosamax for 2 years about 10 years ago but in view of duodenitis documented in June 2020 at [facility] (medical records release signed for it today) she should avoid oral bone preserving therapy therefore I provided her with pamphlet on Prolia administered subcutaneously every 6 months-. She is asked to review the list of the side effects and write her questions for discussion at next visit in 6 weeks. Assessment & Plan (12/12/2020 11:10 PM EDT): Proper calcium and vitamin D supplementation. Fall and fracture prevention strategies. Avoid falls, injuries and overuse. She has a history of treatment with Fosamax for 2 years about 10 years ago but in view of duodenitis documented in June 2020 at [facility] (medical records release signed for it today) she should avoid oral bone preserving therapy therefore I provided her with pamphlet on Prolia administered subcutaneously every 6 months-. She is asked to review the list of the side effects and write her questions for discussion at next visit in 6 weeks. Assessment & Plan (11/15/2020 10:57 PM EDT): Proper calcium and vitamin D supplementation. Fall and fracture prevention strategies. Avoid falls, injuries and overuse. GORDILLO (nonalcoholic steatohepatitis) 12/15/2018 08/21/2023 Vitamin D deficiency 12/15/2018 022 Assessment & Plan (11/15/2020 10:51 PM EDT): Serum level requested to make sure that she does not require additional supplementation. Bilateral leg pain 12/15/2018 Assessment & Plan (06/07/2024 3:02 PM EDT): Pain to bilateral legs. Has been attributed to neuropathy in the past. Pain responded to pentoxifylline that was prescribed for her abdomen. MATTHIEU in 2018 showed no arterial disease. Migraine 12/15/2018 08/21/2023 Adhesive capsulitis of left shoulder 12/15/2018 08/04/2023 Assessment & Plan (05/17/2021 10:26 PM EDT): Use warm packs versus warm shower prior to gentle, regular ROM, stretching in muscle strengthening exercises. I have shown her and explained proper technique of walking up the wall and pendulum exercises. She is explained that improvement is slow and requires daily effort sometimes up to 12 months Changing skin lesion 07/13/2018 023 Lupus 06/23/2017 11/09/2020 Encounters Date Type Department Care Team Description 05/11/2025 Refill [facility] [address] [facility], 5th [place] [address] Calry Morgan MD Medication Refill 05/05/2025 1:45 PM EDT - 05/05/2025 11:59 PM EDT Hospital Encounter [address] [address] Janina Donohue MD Discharge Disposition: Home or Self Care 05/04/2025 [facility] [address], [address] [place] [address] Brennan Childers MD 05/03/2025 3:35 PM EDT - 05/03/2025 11:59 PM EDT Hospital Encounter [address] [address] Janina Donohue MD Discharge Disposition: Home or Self Care 05/03/2025 2:15 PM EDT Office Visit [address] [address] Dahiana Fabian Stephen, PT Low back pain, unspecified back pain laterality, unspecified chronicity, unspecified whether sciatica present (Primary Dx) 05/03/2025 Plan of Care Documentation [address] [address] 04/12/2025 12:00 PM EDT - 04/12/2025 11:59 PM EDT Hospital Encounter Non-Invasive Cardiology [address] [place] [address] Itzel Lazo CNP Discharge Disposition: Home or Self Care 04/07/2025 3:00 PM EDT Office Visit [facility] [address] 3[address] Floor, [address] [place] [address] Brennan Childers MD RLS (restless legs syndrome) (Primary Dx) 03/02/2025 1:01 PM EDT - 03/02/2025 11:59 PM EDT Hospital Encounter [address] [address] Cosme Thrasher MD Discharge Disposition: Home or Self Care 03/02/2025 1:00 PM EDT Office Visit [facility] [address] [place] [address] Cosme Thrasher MD Primary osteoarthritis of right knee (Primary Dx); Right knee pain 02/25/2025 1:00 PM EDT Office Visit [facility] [address] [place] [address] Dunia-Dahiana Townsend Chronic pain of right knee; Pain of right hip; Vitamin D insufficiency 02/12/2025 Refill [facility] [address] [facility] 5th [place] [address] Clary Morgan MD Medication Refill 02/09/2025 3:29 PM EDT - 02/09/2025 11:59 PM EDT Hospital Encounter Non-Invasive Cardiology [address] [place] [address] Kole Mustafa MD Discharge Disposition: Home or Self Care 02/09/2025 Orders Only [facility] [address] [facility] [address], [address] [place] [address] Itzel Lazo CNP Chest pain, unspecified type (Primary Dx) from Last 3 Months Immunizations Immunization Administration Dates Next Due COVID-19 (Pre-06/09) Moderna Vaccine, Bivalent 6mo+ 07/09/2022 COVID-19 (Pre-06/09) Moderna Vaccine, mRNA, PF 12/29/2021 COVID-19 (Pre-06/09) Pfizer Vaccine, mRNA, PF 05/29/2021,10/30/2020,10/09/2020 COVID-19, Unspecified Formulation 07/09/2022 INFLUENZA, SPLIT VIRUS, TRIV ALENT W/ PRESERVATIVE IM 06/25/2022,06/02/2020,07/08/2019,05/20,06/28/2015,06/18/2015 Influenza High-Dose Quadriva lent Preservative Free IM 06/30/2023 Influenza High-Dose Trivalen t Preservative Free IM 05/19/2024 Influenza Quadrivalent Adjuv anted Preservative Free IM 05/23/2021 Influenza Quadrivalent Prese rvative Free IM 06/28/2015 Influenza, whole 05/23/2021 Pneumococcal conjugate PCV13 09/20/2019 Pneumococcal polysaccharide PPSV23 03/09/2021 Zoster recombinant 07/05/2023,09/29/2021 Family History Medical History Relation Comments Diabetes Brother Hyperlipidemia Brother Hypertension Brother CV disease Father 1st [place] Diabetes mellitus Father Hypertension Father CV disease Maternal Uncle Alzheimer's disease Mother Autoimmune disease Mother Osteoporosis Mother Psychiatric disorder Mother Diabetes mellitus Paternal Grandmother Cancer Paternal Uncle Hypertension Sibling Breast cancer Sister Autism Son OCD Spectrum disorder Son Selective mutism Son Relation Status Comments Brother Father Maternal Uncle Mother Paternal Grandmother Paternal Uncle Sibling Sister Son Social History Tobacco Use Types Packs/Day Years Used Date Smoking Tobacco: Former Cigarettes 2 18.9 1 968 - 06/26/1986 Passive Smoke Exposure: Never Smokeless Tobacco: Never Tobacco Cessation:Counseling Given: Not Answered Alcohol Use Standard Drinks/Week Comments No 0 [...] Orientation Straight 07/31/2020 7: 39 AM EST Last Filed Vital Signs Vital Sign Reading Time Taken Comments Blood Pressure 120/78 04/12/2025 1:34 PM EDT Pulse 65 04/07/2025 3:08 PM EDT Temperature 36.8 C (98.2 F) 02/25/2025 12:46 PM EDT Respiratory Rate 22 09/14/2024 8:49 PM EST Oxygen Saturation 98% 04/12/2025 1:00 PM EDT Inhaled Oxygen Concentration - - Weight 55.3 kg (122 lb) 04/07/2025 3:08 PM EDT Height 156.2 cm (5' 1.5 ) 04/07/2025 3:08 PM EDT Body Mass Index 22.68 04/07/2025 3:08 PM EDT Plan of Treatment Upcoming Encounters Date Type Department Care Team (Latest Contact Info) Description 05/17/2025 1:30 PM EDT Office Visit [facility] [address] [place] [address] [address], [address] [place] [address] [email or web address] Charan Jon, PT [address] [place] [address] 05/24/2025 2:15 PM EDT Office Visit [address] [address], [address] [place] [address] [email or web address] Charan Jon, PT [address] [place], [place] [id number] 05/31/2025 2:15 PM EDT Office Visit [address] [address] [address], [address] [place] [address] [email or web address] Charan Jon, PT [address] [place] [address] 06/06/2025 1:20 PM EDT Ancillary Procedure [facility] [address] [place] [address] 3rd Floor, [address] [place] [id number] Kiko Minor MD [address] [place] [address], [address] [address] 06/07/2025 2:15 PM EDT Office Visit [address] [address] Dahiana Fabian [address] [place] [address], [address] [place] [address] [email or web address] Charan Jon, PT [address] [place] [address] 06/10/2025 4:00 PM EDT Office Visit [address] [place] [address] Dahiana Fabian [address] [place] [address], [address] [place] [address] [email or web address] 06/14/2025 2:15 PM EDT Office Visit [address] [address] Dahiana Fabian [address] [place] [address], [address] [place] [address] [email or web address] Charan Jon, PT [address] [place] [address] 06/21/2025 2:15 PM EST Office Visit [address] [address] Dahiana Fabian [address] [place] [address], [address] [place] [address] [email or web address] Charan Jon, PT [address] [place] [address] 07/18/2025 2:30 PM EST Office Visit [facility] [address] [place] [address] Janina Donohue MD [address] [facility], [address] [place] [address] [email or web address] 07/26/2025 3:00 PM EST Ancillary Procedure [facility] [address], [address] [place] [address] Brennan Childers MD [address] [place] [address], [address] [place] [address] [email or web address] Health Maintenance Due Date Last Done Comments Adult Td,Tdap Booster 1950 COLOGUARD 02/28/1997 FIT TEST 02/28/1997 SIGMOIDOSCOPY 02/28/1997 VIRTUAL COLONOSCOPY 02/28/1997 RSV VACCINE (1 - Risk 60-74 years 1-dose series) 2012 FOBT 02/28/2018 02/28/2017 COLONOSCOPY 03/27/2023 03/27/2018 COLORECTAL CANCER SCREENING 03/27/2023 INFLUENZA VACCINE (#1) 2025 , 06/30/2023, 06/25/2022, Additional history exists COVID-19 VACCINE ( season) 2025 05/19/2024, 07/09/2022, 07/09/2022, Additional history exists DEPRESSION SCREENING 06/07/2025 06/07/2024, 09/10/19 24 LIPID PANEL 09/14/2025 09/14/2024, 03/19, 03/26/2023, Additional history exists MAMMOGRAM 01/21/2027 01/21/2025, 02/16, 02/13/2022, Additional history exists HEPATITIS C SCREENING Completed 03/23/2020 PNEUMOCOCCAL VACCINES (50+ years) Completed 03/09/2021, 09/20/2019 ZOSTER VACCINES Completed 07/05/2023, 09/29/2021 SMOKING STATUS SCREENING (Once After 26 Yrs) Completed 04/07/2025 OSTEOPOROSIS SCREENING INITIAL (ONE-TIME) Completed 05/05/2025, 11/21/2022, 11/20/2020, Additional history exists HEPATITIS A VACCINES Aged Out No long er eligible based on patient's age to complete this topic HIB VACCINES Aged Out No longer eligi ble based on patient's age to complete this topic MENINGOCOCCAL VACCINES (ACWY) Aged Out No longer eligible based on patient's age to complete this topic MENINGOCOCCAL VACCINES (B) Aged Out N o longer eligible based on patient's age to complete this topic Medical Devices Not on file Procedures Procedure Name Priority Date/Time Associated Diagnosis Comments BD DXA AXIAL (SPINE) WITH HIP Routine 05/05/2025 2:05 PM EDT Osteopenia of multiple sites AMB REFERRAL TO [facility] PHYSICAL THERAPY Routine 05/03/2025 4:30 PM EDT Pain of right hip IRON AND IRON BINDING CAPACITY Routine 05/03/2025 3:54 PM EDT RLS (restless legs syndrome) FERRITIN Routine 05/03/2025 3:54 PM EDT RLS (restless legs syndrome) COMPREHENSIVE METABOLIC PANEL Routine 05/03/2025 3:54 PM EDT Undifferentiated connective tissue disease Osteopenia of multiple sites Long-term use of Plaquenil C-REACTIVE PROTEIN Routine 05/03/2025 3: 54 PM EDT Undifferentiated connective tissue disease Osteopenia of multiple sites Long-term use of Plaquenil SEDIMENTATION RATE (ESR) Routine 05/03/2025 3:54 PM EDT Undifferentiated connective tissue disease Osteopenia of multiple sites Long-term use of Plaquenil CBC AND DIFFERENTIAL Routine 05/03/2025 3:54 PM EDT Undifferentiated connective tissue disease Osteopenia of multiple sites Long-term use of Plaquenil CPK (CREATINE KINASE) Routine 05/03/2025 3:54 PM EDT Undifferentiated connective tissue disease Osteopenia of multiple sites Long-term use of Plaquenil NC MYOCARDIAL PERFUSION EXERCISE, MULTI Routine 04/12/2025 1:37 PM EDT Chest pain, unspecified type XR KNEE 4 OR MORE VIEWS (RIGHT) Routine 03/02/2025 1:09 PM EDT Right knee pain STRESS TEST EXERCISE Routine 02/09/2025 4:04 PM EDT Coronary artery disease involving nome coronary artery of nome heart without angina pectoris BI MAMMOGRAM SCREENING WITH TOMOSYNTHESIS WITH CAD (BILATERAL) Routine 01/21/2025 11:08 AM EDT Breast screening LIPID PANEL Routine 09/14/2024 2:14 PM EST ENDOSCOPY, COLON 03/27/2018 9:52 AM EDT OUTSIDE FOBT Routine 02/28/2017 from Last 3 Months or Most Recently Relevant to Health Maintenance Results * BD DXA AXIAL (SPINE) WITH HIP (05/05/2025 2:05 PM EDT) Anatomical Region Laterality Modality Bone Density Bone Density 05/05/2025 1:59 PM EDT Impressions 05/06/2025 12:37 PM EDT Interpretation: Osteopenia. Narrative 05/06/2025 12:37 PM EDT Referred By: JANINA DONOHUE I Indications: Osteopenia Scanner: [facility] A with serial# of [id number] located at [facility] Bone Density Scan (DXA) 05/05/25 Details [...] -2.5), or Osteoporosis (T-score <= -2.5). At [facility], T-scores are compared to peak bone density [...] By: JANINA DONOHUE I Indications: Osteopenia Scanner: [facility] A with serial# of [id number] located at [facility] Bone Density Scan (DXA) 05/05/25 Details of [...] -2.5), or Osteoporosis (T-score <= -2.5). At [facility], T-scores are compared to peak bone density [...] andprior bone density results. IMPRESSION: Interpretation: Osteopenia. Janina Donohue MD IMG BD BONE DENSITY DEXA Final Result * Ambulatory referral to [facility] Physical Therapy (05/03/2025 4:30 PM EDT) Other Dahiana Fabian AMB [facility] REFERRALS Final Res ult * Comprehensive metabolic panel (05/03/2025 3:54 PM EDT) SODIUM 137 133 - 146 mmol/L [facility] POTASSIUM 4.3 3.3 - 5.1 mmol/L [facility] CHLORIDE 102 96 - 108 mmol/L [facility] CO2 26 21 - 35 mmol/L [facility] BUN 19 6 - 19 mg/dL [facility] CREATININE 0.70 0.5 - 1.5 mg/dL [facility] GLUCOSE 80 70 - 99 mg/dL [facility] ALBUMIN 4.4 3.9 - 4.8 g/dL [facility] TOTAL PROTEIN 6.7 6.5 - 8.0 g/dL [facility] CALCIUM 9.1 8.4 - 10.3 mg/dL [facility] ALKALINE PHOSPHATASE 39 39 - 117 U/L [facility] TOTAL BILIRUBIN 0.3 0.0 - 1.2 mg/dL [facility] AST 26 0 - 37 U/L [facility] ALT 28 0 - 40 U/L [facility] GLOBULIN 2.3 1 - 4.8 g/dL [facility] EGFR 91 >59 mL/min/1.7 3m2 [facility] Comment:Estimated glomerular filtration rate calculated using the CKD-EPI refit equation. ANION GAP 13 10 - 20 mmol/L [facility] Blood 05/03/2025 3:54 PM EDT 05/03/2025 3:58 PM EDT us Janina Donohue MD LAB BLOOD ORDERABLES Fin al Result [address] [address] * Iron and iron binding capacity (05/03/2025 3:54 PM EDT) IRON 65 30 - 160 ug/dL [facility] IRON BINDING CAPACITY 283 228 - 428 ug/dL [facility] TRANSFERRIN SATURAT. 23 15 - 50 % [facility] Blood 05/03/2025 3:54 PM EDT 05/03/2025 3:58 PM EDT us Brennan Childers MD LAB BLOOD ORDERABLES Final Res ult [address] [address] * Sedimentation rate (ESR) (05/03/2025 3:54 PM EDT) ESR 5 0 - 30 mm/h [facility] Blood 05/03/2025 3:54 PM EDT 05/03/2025 3:58 PM EDT us Janina Donohue MD LAB BLOOD ORDERABLES Fin al Result [address] [address] * (ABNORMAL) CBC and differential (05/03/2025 3:54 PM EDT) WBC 5.43 4.00 - 11.00 K/uL [facility] RBC 3.87(L) 4.00 - 5.20 M/uL [facility] HGB 12.0 12.0 - 16.0 g/dL [facility] HCT 37.3 36.0 - 46.0 % [facility] PLT 258 150 - 450 K/uL [facility] MCV 96.4 80.0 - 100.0 fL [facility] MCH 31.0 27.0 - 31.0 pg [facility] MCHC 32.2 32.0 - 36.0 g/dL [facility] RDW 14.2 11.5 - 14.5 % [facility] MPV 9.8 8.4 - 12.0 fL [facility] NRBC 0.00 0.00 /100 WBCs [facility] ABSOLUTE NRBC 0.00 0.00 K/uL [facility] DIFF METHOD Auto [facility] NEUTS 55.2 48.0 - 76.0 % [facility] LYMPHS 30.4 18.0 - 41.0 % [facility] MONOS 10.3 4.0 - 11.0 % [facility] EOS 2.8 0.0 - 5.0 % [facility] BASOS 0.9 0.0 - 1.5 % [facility] Granulocytes, immature (%) 0.4 0.0 - 0.9 % [facility] ABSOLUTE NEUTS 3.00 1.92 - 7.60 K/uL [facility] ABSOLUTE LYMPHS 1.65 0.72 - 4.10 K/uL [facility] ABSOLUTE MONOS 0.56 0.16 - 1.10 K/uL [facility] ABSOLUTE EOS 0.15 0.00 - 0.50 K/uL [facility] ABSOLUTE BASOS 0.05 0.00 - 0.15 K/uL [facility] Granulocytes, immature 0.02 0.00 - 0.09 K/uL [facility] Blood 05/03/2025 3:54 PM EDT 05/03/2025 3:58 PM EDT us Janina Donohue MD LAB BLOOD ORDERABLES Fin al Result Performing Organization Address [facility]/ZIP Co de Phone Number [address] [address] * C-Reactive Protein (05/03/2025 3:54 PM EDT) C REACTIVE PROTEIN <3.0 0.0 - 4.0 mg/L [facility] Blood 05/03/2025 3:54 PM EDT 05/03/2025 3:58 PM EDT us Janina Donohue MD LAB BLOOD ORDERABLES Fin al Result Performing Organization Address [facility]/ZIP Co de Phone Number [address] [address] * Ferritin (05/03/2025 3:54 PM EDT) FERRITIN 33 13 - 150 ug/L [facility] Blood 05/03/2025 3:54 PM EDT 05/03/2025 3:58 PM EDT us Brennan Childers MD LAB BLOOD ORDERABLES Final Res ult Performing Organization Address [facility]/ZIP Co de Phone Number [address] [address] * (ABNORMAL) CPK (creatine kinase) (05/03/2025 3:54 PM EDT) CREATINE KINASE 216(H) 21 - 215 U/L [facility] Blood 05/03/2025 3:54 PM EDT 05/03/2025 3:58 PM EDT us Janina Donohue MD LAB BLOOD ORDERABLES Fin al Result [address] [address] * NC Myocardial Perfusion Exercise Multiple (04/12/2025 1:37 PM EDT) Max Predicted Heart Rate 147 bpm Stress/rest perfusion ratio 0.90 Nuc Stress EF 66 % SNMDIAVOL 68.0 mL SNMSYSVOL 23.0 mL Nuc Rest EF 63 % RNMDIAVOL 71.0 mL RNMSYSVOL 26.0 mL Anatomical Region Laterality Modality Heart, Vascular Ultrasound Narrative 04/14/2025 6:42 PM EDT Normal myocardial perfusion imaging. There are no fixed or reversible perfusion defects. TID ratio is normal at 0.9. LVEF was 63% at rest and 66% post-stress. ECG STRESS REPORT: BMI: 22.68 Riddhi Marley exercised for 10:19 min on a HAI protocol achieving 10.1 METS. Test terminated due to fatigue. Baseline resting HR was 63 bpm. Max heart rate achieved was 126 bpm (85% MPHR). 1. EKG - Baseline EKG showed sinus rhythm. During exercise there were no ischemic EKG changes that met strict criteria. 2. SYMPTOMS -She reported 3/10 chest discomfort with exercise that resolved spontaneously within 3 minutes of recovery. 3. EXERCISE PHYSIOLOGY -High functional capacity for age. BP 110/66 at rest, BP 162/89), BP 120/78 on discharge from stress lab. 4. ARRHYTHMIAS -Rare isolated PVC Conclusion -There were no EKG changes suggestive for ischemia. There were reported symptoms that were concerning for angina. Nuclear images pending and will be reported separately. See attached stress report for full details. Tamia Melvin, SALES OFFICE ADMINISTRATOR NUCLEAR REPORT: TYPE OF STUDY: Myocardial Perfusion Imaging after exercise utilizing a standard Hai protocol with gated SPECT. PROTOCOL USED: One day rest- stress protocol in the supine and prone position. Images were obtained in gated tomographic technique. Images were processed in SPECT format, reconstructed tomographically and compared [id number] in short axis, horizontal long axis and vertical long axis. DOSE: Technetium 99m Sestamibi 7.0 mCi injected intravenously in the right antecubital vein at rest on 04/12/2025 with post injection scan time of 60 minutes. Technetium 99m Sestamibi 21.5 mCi injected intravenously in the right arm antecubital vein during stress on 04/12/2025 with post injection scan time of 20 minutes. Overall image quality is good. No motion artifact is present. Stress Function Defect Left ventricular global function is normal during stress. Stress ejection fraction is 66%. The stress end diastolic cavity size is normal. Stress end diastolic size: 68.0 mL. The stress end systolic cavity size is normal. Stress end systolic size: 23.0 mL. Rest Function Defect Left ventricular global function is normal at rest. Resting ejection fraction was 63%. The rest end diastolic cavity size is normal. Rest end diastolic size: 71.0 ml. The rest end systolic cavity size is normal. Rest end systolic size: 26.0 mL. Nuclear Prior Study There is no prior study available for comparison. Nuclear Ancillary Finding There is no evidence of transient ischemic dilation (TID). The TID ratio is 0.90, which is normal. Perfusion Scoring Resting Summed Score: 0 Percent Normal: 0.00% The left ventricular perfusion is normal. SUPINE IMAGING REST Perfusion Scoring Stress Summed Score: 0 Percent Normal: 0.00% The left ventricular perfusion is normal. PRONE IMAGING STRESS Perfusion Scores: SRS Score: 0 Percentage Abnormal: 0.00% Perfusion Scores: SSS Score: 0 Percentage Abnormal: 0.00% Perfusion Scores: SDS Score: 0 Percentage Abnormal: 0.00% Procedure Note Kiko Minor MD - 04/14/2025 Normal myocardial perfusion imaging. There are no fixed or reversible perfusion defects. TID ratio is normal at 0.9. LVEF was 63% at rest and 66% post-stress. Itzel Lazo DIRECTOR OF MATERIALS CV NM CARDIAC Final Re sult * XR KNEE 4 OR MORE VIEWS (RIGHT) (03/02/2025 1:09 PM EDT) Narrative SYSTEMGENERATED, DOCUMENTATION - 03/02/2025 1:09 PM EDT This image report has been auto-finalized and has not been read by a Radiologist. Interpretation has been included in the provider encounter note for this date of service. us Cosme Thrasher MD IMG XR LOWER EXTREMITY Final Result * STRESS TEST EXERCISE (02/09/2025 4:04 PM EDT) Max Predicted Heart Rate 148 bpm Anatomical Region Laterality Modality Heart Ultrasound Narrative 02/11/2025 10:56 AM EDT ECG Report Pt exercised for 9: 11 min on a HAI protocol achieving 10.7 METS. Test terminated primarily due to arthritic knee pain however she was also experiencing worsening chest discomfort. Baseline resting HR was 70 bpm. Max heart rate achieved was 130 bpm (87% MPHR). 1. ECG: Baseline ECG showed sinus rhythm without significant ST-T wave abnormality. With exercise there were no ECG changes meeting criteria for ischemia. 2. SYMPTOMS: With exercise developed progressive nonradiating substernal chest pressure peaking at a level of 5/10, this was relieved within a few minutes of resting recovery. 3. EXERCISE PHYSIOLOGY: High functional capacity for age. Blood pressure: 98/62 at rest, 140/70 with exercise, and 100/60 on discharge from stress lab. 4. ARRHYTHMIAS: Occasional isolated PVCs Conclusion: Abnormal exercise stress test due to symptoms concerning for angina. There were no EKG changes meeting criteria for ischemia. Plan: Repeat with nuclear stress test (this has already been ordered): may require hybrid pharmacologic/exercise test as knee pain was significantly limiting on treadmill today See attached stress report for full details. Itzel Lazo NP Kole Mustafa MD CV STRESS ORDERABLES Fin al Result * BI MAMMOGRAM SCREENING WITH TOMOSYNTHESIS WITH CAD (BILATERAL) (01/21/2025 11:08 AM EDT) Anatomical Region Laterality Modality Breast Left, Breast Right, Breast Bilateral Bila teral Mammography 01/24/2025 9:28 AM EDT Impressions 01/24/2025 9:30 AM EDT No mammographic evidence of malignancy in either breast. Annual screening mammography is recommended. BI-RADS 1 NEGATIVE The patient will be notified of the results and recommendations. Narrative 01/24/2025 9:30 AM EDT BI MAMMOGRAM SCREENING WITH TOMOSYNTHESIS WITH CAD (BILATERAL) Additional patient information: Screening. COMPARISON: Comparison is made with relevant prior imaging. Breast composition: There are scattered areas of fibroglandular density. FINDINGS: There has been no change in the mammographic findings since previous examination. No abnormal masses, suspicious calcifications, or other significant findings are identified mammographically in either breast. Procedure Note Emma Mckeon MD - 01/24/2025 BI MAMMOGRAM SCREENING WITH TOMOSYNTHESIS WITH CAD (BILATERAL) Additional patient information: Screening. COMPARISON: Comparison is made with relevant prior imaging. Breast composition: There are scattered areas of fibroglandular density. FINDINGS: There has been no change in the mammographic findings since previousexamination. No abnormal masses, suspicious calcifications, or other significantfindings are identified mammographically in either breast. IMPRESSION: No mammographic evidence of malignancy in either breast. Annual screening mammography is recommended. BI-RADS 1 NEGATIVE The patient will be notified of the results and recommendations. Dahiana Fabian IMG MG EXAMS Final Resul t * (ABNORMAL) Lipid panel (09/14/2024 2:14 PM EST) HDL 77 mg/dL [facility] Comment: Interpretation <40 mg/dL: Low HDL cholesterol (major risk factor for CHD) Greater than or equal to 60 mg/dL: High HDL cholesterol ( negative risk factor for CHD) HDL - cholesterol is affected by a number of factors, e.g. smoking, excerise, hormones, sex and age. CHOLESTEROL 152 0 - 240 mg/dL [facility] TRIGLYCERIDES 62 30 - 160 mg/dL [facility] LDL 63 50 - 129 mg/dL [facility] Comment: LDL levels in terms of risk for coronary heart disease: <100 mg/dL: Optimal 100-129 mg/dL: Near or above optimal 130-159 mg/dL: Borderline high 160-189 mg/dL: High >190 mg/dL: Very High CARDIAC RISK RATIO 2.0(L) 3.3 - 4.4 C [facility] 09/14/2024 2:14 PM EST 09/14/2024 2:17 PM EST Erika Silva PA-C LAB BLOOD ORDERABLES Final R esult [facility] [address] [place] [address] * ENDOSCOPY, COLON (03/27/2018 9:52 AM EDT) Narrative Transcriptions Sridhar Graham MD - 03/27/2018 9:52 AM EDT Patient Name: Riddhi Martineztano Attending MD:: SRIDHAR GRAHAM MD Procedure Date: 03/27/2018 9:52 AM Date of : 1950 Age: 68 Admit Type: Outpatient Gender: Female Room: [facility] 05 Referring MD: GAURANG MI MD Exam Type: Colonoscopy Indications: High risk colon cancer surveillance: Personal historyof colonic polyps, Last exam 7-8 years ago, (Priorprocedure report unavailable) Medications: Propofol per Anesthesia Procedure: Informed consent was obtained from the patient after discussion of the indications, limitations,alternatives, benefits, and risks of the procedure. Risksspecifically discussed include but are not limited to medication reactions, missed lesions, bleeding, perforation, orthe need for emergent surgery. Throughout the procedure, the patient's blood pressure, pulse, end-tidal CO2, and oxygen saturations were monitored continuously. The Olympus adult variable colonoscope [id number] #7 was introduced through the anus and advanced to theterminal ileum, with identification of the appendiceal orificeand IC valve. The terminal ileum and the appendicealorifice were photographed. The colonoscopy was performedwithout difficulty. The patient tolerated the procedure well.The quality of the bowel preparation was good. The bowel preparation used was GoLYTELY. Complications: No immediate complications. Estimated blood loss:None. Findings: The digital rectal exam was normal. Small rectocele. Pertinent negatives include no palpable rectallesions. External hemorrhoids were found during perianal exam.The hemorrhoids were small. Retroflex view was intentionally not performed, but a careful forward viewing was performed. Many medium-mouthed diverticula were found in theentire colon. The exam was otherwise without abnormality. The terminal ileum appeared normal. Retroflexion in the right colon was performed. Impression: - External hemorrhoids. - The distal rectum and anal verge are normal on retroflexion view. - Diverticulosis in the entire examined colon. - The examination was otherwise normal. - The examined portion of the ileum was normal. - No specimens collected. Recommendation: - High fiber diet. - Repeat colonoscopy in 5 years for surveillance. SRIDHAR GRAHAM MD 03/27/2018 10:28:31 AM This report has been signed electronically. Number of Addenda: 0 Note Initiated On: 03/27/2018 9:52 AM Procedure Code(s): --- Professional --- 59135, Colonoscopy, flexible; diagnostic, including collection of specimen(s) by brushing or washing, when performed (separateprocedure) --- Technical --- 00267, Colonoscopy, flexible; diagnostic, including collection of specimen(s) by brushing or washing, when performed (separateprocedure) Diagnosis Code(s): --- Professional --- Z86.010, Personal history of colonic polyps K64.4, Residual hemorrhoidal skin tags K57.30, Diverticulosis of large intestine without perforation orabscess without bleeding --- Technical --- Z86.010, Personal history of colonic polyps K64.4, Residual hemorrhoidal skin tags K57.30, Diverticulosis of large intestine without perforation orabscess without bleeding CPT copyright 2016 [employer]. All rights reserved. The codes documented in this report are preliminary and upon machine setup operator reviewmay be revised to meet current compliance requirements. [address] [place] [address] Gaurang Mi MD GI PROCEDURE ORDERABLES Fin al Result * OUTSIDE FOBT TEST (02/28/2017) FOBT - External Neg Historical Provider LAB BLOOD ORDERABLES Amy l Result from Last 3 Months or Most Recently Relevant to Health Maintenance Insurance MEDICARE PART A & B [facility] MEDICARE PREFERRED SUPPLEMENT MEDICARE PART A & B [facility] MEDICARE PREFERRED SUPPLEMENT MEDICARE PART A & B [facility] MEDICARE PREFERRED SUPPLEMENT MEDICARE PART A & B [facility] MEDICARE PREFERRED SUPPLEMENT MEDICARE PART A & B [place] MEDICARE PREFERRED SUPPLEMENT MEDICARE PART A & B [facility] MEDICARE PREFERRED SUPPLEMENT MEDICARE PART A & B [place] MEDICARE PREFERRED SUPPLEMENT [facility] Address: [address] [place] [address] MEDICARE PART A & B [facility] MEDICARE PREFERRED SUPPLEMENT MEDICARE PART A & B [facility] MEDICARE PREFERRED SUPPLEMENT Advance Directives For more information, please contact: [phone] (9AM - 5PM [facility], Friday-Friday) * Full Code (Latest Code Status on File) Date Activated Date Inactivated Comments 03/26/2023 5:21 AM Question Answer Comments Code Status Confirmed With: Patient Care Teams Golf Ball Cover Treater Relationship Specialty Start Date End Date NatalioDahiana Schreiber [address] [facility], [address] [place] [address] [email or web address] PCP - General Family Medicine 08/21/23 Clary Morgan MD [address] [place] [address] [email or web address] Gastroenterology 11/15/24 Additional Source Comments The information contained in this document represents components of the legal health record. It is not the complete legal health record.[facility]
--- OUTSIDE RECORDS SUMMARY | 2025-05-11 14:46 | XMS_ITS | Encounter Summary ---
Author Organization [facility] Address [address] [place] [address] Phone Care Team Providers Care Assistant Store Manager Name Role Phone Dahiana Fabian Primary Care Provider [phone] Clary Morgan MD Unavailable [phone] Encounter Details Date Type Department Care Team (Late st Contact Info) Description 09/14/2024 Procedure Pass [facility], [facility] [address] [place] [address] Social History Tobacco Use Types Packs/Day Years [...] AM EST documented as of this encounter Last Filed Vital Signs Vital Sign Reading Time Taken Comments Blood Pressure - - Pulse - - Temperature - - Respiratory Rate - - Oxygen Saturation - - Inhaled Oxygen Concentration - - Weight 54 kg (119 lb) 09/14/2024 6:06 PM EST Height 156.2 cm (5' 1.5 ) 09/14/2024 6:06 PM EST Body Mass Index 22.12 09/14/2024 6:06 PM EST documented in this encounter Functional Status * Calculated C-SSRS Risk Score (Lifetime/Recent) Answer Date of Assessment Author No Risk Indicated 09/14/2024 1:25 PM Amina Odonnell RN * Gibson Suicide Severity Rating Scale (Screener/Recent Self-Report) Question Answer Date of Assessment Author 1. Wish to be (Past 1 Month) No 025 1:25 PM Amina Odonnell RN 2. Non-Specific Active Suici jenaro Thoughts (Past 1 Month) No 09/14/2024 1:25 PM Amina Odonnell RN 6. Suicidal Behavior (Lifetime) No 1:25 PM Amina Odonnell RN documented as of this encounter Plan of Treatment Upcoming Encounters Date Type Department Care Team (Latest Contact Info) Description 05/17/2025 1:30 PM EDT Office Visit [address], [address] [place] [address] [email or web address] Charan Jon, PT [address] [place] [address] 05/24/2025 2:15 PM EDT Office Visit [address], [address] [place] [address] [email or web address] Charan Jon, PT [address] [place], [place] [phone] 05/31/2025 2:15 PM EDT Office Visit [address] [phone] Rui [address], [address] [place] [address] [email or web address] Charan Jon, PT [address] [place] [address] [email or web address] 06/06/2025 1:20 PM EDT Ancillary Procedure [facility] [address] [place] [address] [address] Floor, [address] [place] [address] Kiko Minor MD 22 [facility], [address] [place] [address] 06/07/2025 2:15 PM EDT Office Visit [address] [address] Dahiana Fabian [address] [place] [address], [address] [place] [address] [email or web address] Charan Jon, PT [address] [place], [place] [phone] [email or web address] 06/10/2025 4:00 PM EDT Office Visit [address] [address] Dahiana Fabian [address] [place] [address], [address] [place] [address] [email or web address] 06/14/2025 2:15 PM EDT Office Visit [address] [address] Dahiana Fabian [address] [place] [address], [address] [place] [address] [email or web address] Charan Jon, PT [address] [place], [place] [id number] 06/21/2025 2:15 PM EST Office Visit [facility] [address] [place] [address] Dahiana Fabian 22 [facility], [address] [place] [address] [email or web address] Charan Jon, PT [address] [place], [place] [phone] 07/18/2025 2:30 PM EST Office Visit [facility] [address] [place] [address] [place] [address] Janina Donohue MD [address] [place] [address], [address] [place] [address] [email or web address] 07/26/2025 3:00 PM EST Ancillary Procedure [facility] [address] [place] [address] Dr [address] Floor, [address] [place] [address] Brennan Childers MD [address] [place] [address], [address] [place] [address] [email or web address] documented as of this encounter Visit [...] documented as of this encounter Care Teams Assistant Store Manager Relationship Specialty Start Date End Date Dahiana Fabian [address] [place] [address], [address] [place] [address] [email or web address] PCP - General Family Medicine 08/21/23 Clary Morgan MD [address] [address] [email or web address] Gastroenterology 11/15/24 documented as of this encounter Additional Source Comments The information contained in this document represents components of the legal health record. It is not the complete legal health record.[facility]
--- OUTSIDE RECORDS SUMMARY | 2025-05-11 14:46 | XMS_ITS | Encounter Summary ---
Author Organization [facility] Address [address] [place] [address] Phone Care Team Providers Care Emergency Room Rn Name Role Phone UmanaVesna calloway Heike DELATORRE Unavailable [phone] Bianca Regan MD Unavailable Robyn Aguayo MD Primary Care Provider Nestor Louis DO Primary Care Provider [phone] Robyn Aguayo MD Unavailable Lisa Duff MD Primary Care Provider [phone] Lisa Duff MD Primary Care Provider [phone] Martin Wright DO Primary Care Provider Dahiana Fabian Primary Care Provider Clary Morgan MD Unavailable [phone] Encounter Details Date Type Department Care Team (Late st Contact Info) Description 01/07/2019 Ancillary Orders Virtual Department [address] [place], [place] [id number] Robyn Aguayo MD [address] [place] [address] [email or web address] Social History Tobacco Use Types Packs/Day Years [...] 05/17/2025 1:30 PM EDT Office Visit [address] [address] Jude Fabiania [address] [place] [address], [address] [place] [address] [email or web address] Charan Jon, PT [address] [place] [address] [email or web address] 05/24/2025 2:15 PM EDT Office Visit [address] [phone] Jude Fabinaia [address] [place] [address], [address] [place] [address] [email or web address] Charan Jon, PT [address] [place], [place] [phone] [email or web address] 05/31/2025 2:15 PM EDT Office Visit [address] [phone] Dahiana Fabian [address] [place] [address], [address] [place] [address] [email or web address] Charan Jon, PT [address] [place], [place] [phone] [email or web address] 06/06/2025 1:20 PM EDT Ancillary Procedure [facility] [address] [place] [address] Dr [address] Floor, [address] [place] [address] Kiko Minor MD 22 [facility], [address] [place] [address] 06/07/2025 2:15 PM EDT Office Visit [address] [address] [facility] [address], [address] [place] [address] [email or web address] Charan Jon, PT [address] [place] [address] 06/10/2025 4:00 PM EDT Office Visit [address] [place] [address] [facility] [address], [address] [place] [address] [email or web address] 06/14/2025 2:15 PM EDT Office Visit [address] [address] [address] [address], [address] [place] [address] [email or web address] Charan Jon, PT [address] [place], [place] [phone] 06/21/2025 2:15 PM EST Office Visit [address] [address] [facility] [address], [address] [place] [address] [email or web address] Dontrell Charan, PT [address] [place] [address] [email or web address] 07/18/2025 2:30 PM EST Office Visit [facility] [address] [place] [address] Janina Donohue MD [address] [place] [address], [address] [place] [address] [email or web address] 07/26/2025 3:00 PM EST Ancillary Procedure [facility] [address] Floor, [address] [place] [address] Brennan Childers MD [address] [place] [address], [address] [place] [address] [email or web address] documented as of this encounter Visit Diagnoses Not on filedocumented in this encounter Additional Health Concerns Infection Onset Date Last Indicated Resolved Time CoV-Risk 09/21/2024 09/21/2024 09/21/2024 2:57 PM EST COVID-19 09/21/2024 09/21/2024 10/12/2024 1:21 AM EST Assessment Noted Time PHQ-2 Depression Total Score: 2 12/16/19 19 1:37 PM EDT documented as of this encounter Care Teams Emergency Room Rn Relationship Specialty Start Date End Date Robyn Aguayo MD [address] [place] [address], [address] [place] [address] [email or web address] PCP - General Family Medicine 09/07/18 08/19/19 Nestor Louis DO [address] [place] [address] [email or web address] PCP - General Family Medicine 08/20/19 07/03/20 Lisa Duff MD [address] [place] [address] [email or web address] PCP - General Family Medicine 07/04/20 03/11/21 Lisa Duff MD [address] [place] [address] [email or web address] PCP - General Family Medicine 03/12/21 03/06/23 Martin Wright DO [address] [address] PCP - General Family Medicine 03/07/23 08/20/23 Dahiana Fabian [address] [facility], [address] [place] [address] [email or web address] PCP - General Family Medicine 08/21/23 Vesna Umana NP [address] [place] [address] [address] [place] [address] [email or web address] Historical LMR Provider 06/05/17 2 Bianca Regan MD [address] [place] [address], [address] [place] [address] Historical LMR Provider 06/05/17 08/25/21 Robyn Aguayo MD [address] [place] [address] [email or web address] Insurance Assigned Provider 11/24/19 08/26/20 Clary Morgan MD 55 [facility] 5 [place] [address] [email or web address] Gastroenterology 11/15/24 documented as of this encounter Additional Source Comments The information contained in this document represents components of the legal health record. It is not the complete legal health record.[facility]
--- OUTSIDE RECORDS SUMMARY | 2025-05-11 14:46 | XMS_ITS | Encounter Summary ---
Author Organization [facility] Address [address] [place] [address] [place] [address] Phone Care Team Providers Care Store Leader Name Role Phone Dahiana Fabian Primary Care Provider [phone] Clary Morgan MD Unavailable [phone] Encounter Details Date Type Department Care Team (Late st Contact Info) Description 09/14/2024 Procedure Pass [facility], Ct Scan - [facility] [address] [place] [address] Social History Tobacco Use Types Packs/Day Years [...] 1:25 PM EST Amina Dick RN * [place] Suicide Severity Rating Scale (Screener/Recent Self-Report) Question [...] Description 05/17/2025 1:30 PM EDT Office Visit [address] [address] Dahiana Fabian [address] [place] [address], [address] [place] [address] [email or web address] Charan Jon, PT 4 [place], [place] [id number] [email or web address] 05/24/2025 2:15 PM EDT Office Visit [address] [address] Dahiana Fabian [address] [place] [address], [address] [place] [address] [email or web address] Charan Jon, PT 4 [place], [place] [id number] [email or web address] 05/31/2025 2:15 PM EDT Office Visit [address] [address] Dahiana Fabian [address] [place] [address], [address] [place] [address] [email or web address] Charan Jon, PT 4 [place] [address] [email or web address] 06/06/2025 1:20 PM EDT Ancillary Procedure [facility] 22 [facility] 3rd Floor, [address] [place] [address] Kiko Minor MD [address] [facility], [address] [place] [address] 06/07/2025 2:15 PM EDT Office Visit [address] [address] [facility], [address] [place] [address] [email or web address] Charan Jon, PT 4 [place] [address] 06/10/2025 4:00 PM EDT Office Visit [address] [place] [address] [address], [address] [place] [address] [email or web address] 06/14/2025 2:15 PM EDT Office Visit [address], [address] [place] [address] [email or web address] Charan Jon, PT 4 [place], [place] [id number] [email or web address] 06/21/2025 2:15 PM EST Office Visit [address] [address], [address] [place] [address] [email or web address] Charan Jon, PT 4 [place] [address] 07/18/2025 2:30 PM EST Office Visit [facility] [address] [place] [address] Janina Donohue MD [address] [place] [address], [address] [place] [address] [email or web address] 07/26/2025 3:00 PM EST Ancillary Procedure [facility] [address] 3rd Floor, [address] [place] [address] Brennan Childers MD [address] [place] [address], [address] [place] [address] [email or web address] documented as of this encounter Visit [...] documented as of this encounter Care Teams Store Leader Relationship Specialty Start Date End Date Dahiana Fabian [address] [facility], [address] [place] [address] PCP - General Family Medicine 08/21/23 Clary Morgan MD [address] [facility] 5 [place] [address] Gastroenterology 11/15/24 documented as of this encounter Additional Source Comments The information contained in this document represents components of the legal health record. It is not the complete legal health record.[facility]
--- OUTSIDE RECORDS SUMMARY | 2025-05-11 14:46 | XMS_ITS | Encounter Summary ---
Author Organization [facility] Address [address] [place] [address] Phone Care Team Providers Care Shoe Cleaner Name Role Phone Dong Al[place] NP Unavailable [phone] Bianca Regan MD Unavailable Chavez Nichols MD Primary Care Provider Robyn Aguayo MD Primary Care Provider Nestor Louis DO Primary Care Provider Robyn Aguayo MD Unavailable Lisa Duff MD Primary Care Provider [phone] Lisa Duff MD Primary Care Provider [phone] Martin Wright DO Primary Care Provider [phone] Dahiana Fabian Primary Care Provider Clary Morgan MD Unavailable [phone] Encounter Details Date Type Department Care Team (Late st Contact Info) Description 03/27/2018 Procedure Pass [facility] Admitting Dept Virtual Department [address] [place] [address] Social History Tobacco Use Types Packs/Day Years Used Date Smoking Tobacco: Never Smokeless Tobacco: Never Alcohol Use Standard [...] Description 05/17/2025 1:30 PM EDT Office Visit [address] [address] Dahiana Fabian [address] [place] [address], [address] [place] [address] [email or web address] Charan Jon, PT 4 [place], [place] [phone] 05/24/2025 2:15 PM EDT Office Visit [address] [address] Dahiana Fabian [address] [place] [address], [address] [place] [address] [email or web address] Charan Jon, PT 4 [place], [place] [phone] 05/31/2025 2:15 PM EDT Office Visit [address] [address] Dahiana Fabian [address] [place] [address], [address] [place] [address] [email or web address] Charan Jon, PT 4 [place], [place] [id number] 06/06/2025 1:20 PM EDT Ancillary Procedure [facility] [address] 3rd Floor, [address] [place] [address] Kiko Minor MD 22 [facility], [address] [place] [address] 06/07/2025 2:15 PM EDT Office Visit [address] [address] [facility] [address], [address] [place] [address] [email or web address] Charan Jon, PT 4 [place] [address] 06/10/2025 4:00 PM EDT Office Visit [address] [address] [facility] [address], [address] [place] [address] [email or web address] 06/14/2025 2:15 PM EDT Office Visit [address] [address], [address] [place] [address] [email or web address] Charan Jon, PT 4 [place] [address] 06/21/2025 2:15 PM EST Office Visit [address] [address], [address] [place] [address] [email or web address] Charan Jon, PT 4 [place] [address] 07/18/2025 2:30 PM EST Office Visit [facility] [address] [place] [address] Janina Donohue MD 22 [facility], [address] [place] [address] [email or web address] 07/26/2025 3:00 PM EST Ancillary Procedure [facility] [address] 3rd Floor, [address] [place] [address] Brennan Childers MD 22 [facility], [address] [place] [address] [email or web address] documented as of this encounter Visit Diagnoses Not on filedocumented in this encounter Additional Health Concerns Infection Onset Date Last Indicated Resolved Time CoV-Risk 09/21/2024 09/21/2024 09/21/2024 2:57 PM EST COVID-19 09/21/2024 09/21/2024 10/12/2024 1:21 AM EST documented as of this encounter Care Teams Shoe Cleaner Relationship Specialty Start Date [place] [address] [email or web address] PCP - General Internal Medicine 06/23/17 09/06/18 [place] [address] [email or web address] PCP - General Family Medicine 09/07/18 08/19/19 Nestor Louis DO [address] [place] [address] [email or web address] PCP - General Family Medicine 08/20/19 07/03/20 Lisa Duff MD [address] [place] [address] [email or web address] PCP - General Family Medicine 07/04/20 03/11/21 Lisa Duff MD [address] [place] [address] [email or web address] PCP - General Family Medicine 03/12/21 03/06/23 Martin Wright DO [address] [address] PCP - General Family Medicine 03/07/23 08/20/23 Dahiana Fabian [address] [place] [address], [address] [place] [address] [email or web address] PCP - General Family Medicine 08/21/23 Vesna Umana NP [address] [place] [address] [place] [address] [email or web address] Historical LMR Provider 06/05/17 Bianca Gamboa MD [address] [place] [address] Historical LMR Provider 06/05/17 08/25/21 Robyn Aguayo MD [address] [place] [address] [email or web address] Insurance Assigned Provider 11/24/19 08/26/20 Clary Morgan MD 55 [facility] 5 [place] [address] [email or web address] Gastroenterology 11/15/24 documented as of this encounter Additional Source Comments The information contained in this document represents components of the legal health record. It is not the complete legal health record.[facility]
--- OUTSIDE RECORDS SUMMARY | 2025-05-11 14:46 | XMS_ITS | Encounter Summary ---
Author Organization [facility] Address [address] [place] [address] Phone Care Team Providers Care Decorator Lighting Fixtures Name Role Phone Dong Clinton NP Unavailable [phone] Bianca Regan MD Unavailable Chavez Nichols MD Primary Care Provider Robyn Aguayo MD Primary Care Provider Nestor Louis DO Primary Care Provider Robyn Aguayo MD Unavailable Lisa Duff MD Primary Care Provider [phone] Lisa Duff MD Primary Care Provider [phone] Martin Wright DO Primary Care Provider [phone] Dahiana Fabian Primary Care Provider Clary Morgan MD Unavailable [phone] Encounter Details Date Type Department Care Team (Late st Contact Info) Description 02/13/2018 Ancillary Orders [place] [facility],Outside Imaging [address] [place], [place] [address] System, Provider Not In, [facility] [address] [address] Social History Tobacco Use Types Packs/Day Years Used Date Smoking Tobacco: Never Smokeless Tobacco: Never Comments No Sex and Gender Information Value Date Recorded Sex Assigned at Female 09/05/2021 7:38 PM EST Legal Sex Female 10:36 PM EDT Gender Identity Female 07/31/2020 7:39 AM EST Sexual Orientation Straight 07/31/2020 7: 39 AM EST documented as of this encounter Plan of Treatment Upcoming Encounters Date Type Department Care Team (Latest Contact Info) Description 05/17/2025 1:30 PM EDT Office Visit [address] [address] Jude Fabiania [address] [place] [address], [address] [place] [address] [email or web address] Charan Jno, PT 4 [place], [place] [id number] 05/24/2025 2:15 PM EDT Office Visit [address] [address] Jude Fabiania [address] [place] [address], [address] [place], [place] [id number] [email or web address] Charan Jon, PT 4 [place], [place] [phone] 05/31/2025 2:15 PM EDT Office Visit [address] [address] Dahiana Fabian [address] [place] [address], [address] [place] [address] [email or web address] Charan Jon, PT 4 [place], [place] [phone] 06/06/2025 1:20 PM EDT Ancillary Procedure [facility] [address] [place] [address] 3rd Floor, [address] [place] [address] Kiko Minor MD 22 [facility], [address] [place] [address] 06/07/2025 2:15 PM EDT Office Visit [address] [address] [facility] [address], [address] [place] [address] [email or web address] Charan Jon, PT 4 [place] [address] 06/10/2025 4:00 PM EDT Office Visit [address] [address] [facility] [address], [address] [place] [address] [email or web address] 06/14/2025 2:15 PM EDT Office Visit [address] [address] [facility] [address], [address] [place] [address] [email or web address] Charan Jon, PT 4 [place] [address] 06/21/2025 2:15 PM EST Office Visit [address] [address], [address] [place] [address] [email or web address] Charan Jon, PT 4 [place] [address] 07/18/2025 2:30 PM EST Office Visit [facility] [address] [place] [address] Janina Donohue MD 22 [facility], [address] [place] [address] [email or web address] 07/26/2025 3:00 PM EST Ancillary Procedure [facility] [address] 3rd Floor, [address] [place] [address] Brennan Childers MD 22 [facility], [address] [place] [address] [email or web address] documented as of this encounter Results * US Breast Outside (No Interpretation) (08/22/2011 12:15 AM EST) Narrative SYSTEMGENERATED, DOCUMENTATION - 02/13/2018 12:04 PM EDT This study is for PACS storage only and not for interpretation. us Provider Not In System PhD IMG OUTSIDE IMAGING W /OUT INTERPRETATION Final Result * Mammogram Outside (No Interpretation) (08/22/2011 12:00 [...] documented as of this encounter Care Teams Decorator Lighting Fixtures Relationship Specialty Start Date End [place] [address] [email or web address] PCP - General Internal Medicine 06/23/17 09/06/18 [place] [address] [email or web address] PCP - General Family Medicine 09/07/18 08/19/19 Nestor Louis DO [address] [place] [address] [email or web address] PCP - General Family Medicine 08/20/19 07/03/20 Lisa Duff MD [address] [place] [address] [email or web address] PCP - General Family Medicine 07/04/20 03/11/21 Lisa Duff MD [address] [place] [address] [email or web address] PCP - General Family Medicine 03/12/21 03/06/23 [place] [address] [address] PCP - General Family Medicine 03/07/23 08/20/23 Dahiana Fabian [address] [place] [address], [address] [place] [address] [email or web address] PCP - General Family Medicine 08/21/23 Vesna Umana NP [address] [place] [address] [address] [place] [address] [email or web address] Historical LMR Provider 06/05/17 2 Bianca Regan MD 22 [facility], [address] [place] [address] [email or web address] Historical LMR Provider 06/05/17 08/25/21 Robyn Aguayo MD [address] [place] [address] [email or web address] Insurance Assigned Provider 11/24/19 08/26/20 Clary Morgan MD [address] [address] [email or web address] Gastroenterology 11/15/24 documented as of this encounter Additional Source Comments The information contained in this document represents components of the legal health record. It is not the complete legal health record.[facility]
--- OUTSIDE RECORDS SUMMARY | 2025-05-11 14:46 | XMS_ITS | Encounter Summary ---
Author Organization [facility] Address [address] [place] [address] Phone Care Team Providers Care Processing Analyst Name Role Phone DongVenuCavour NP Unavailable [phone] Bianca Regan MD Unavailable Robyn Aguayo MD Unavailable Lisa Duff MD Primary Care Provider [phone] Lisa Duff MD Primary Care Provider [phone] Martin Wright DO Primary Care Provider Dahiana Fabian Primary Care Provider Clary Morgan MD Unavailable [phone] Encounter Details Date Type Department Care Team (Late st Contact Info) Description 07/04/2020 Procedure Pass [facility], [address] [address] Social History Tobacco Use Types Packs/Day Years [...] Description 05/17/2025 1:30 PM EDT Office Visit [address] [address] Dahiana Fabian [address] [place] [address], [address] [place] [address] [email or web address] Charan Jon, PT 4 [place] [address] 05/24/2025 2:15 PM EDT Office Visit [address] [address] Dahiana Fabian [address] [place] [address], [address] [place] [address] [email or web address] Charan Jon, PT 4 [place] [address] 05/31/2025 2:15 PM EDT Office Visit [address] [address] Dahiana Fabian [address] [place] [address], [address] [place] [address] [email or web address] Charan Jon, PT 4 [place] [address] 06/06/2025 1:20 PM EDT Ancillary Procedure [facility] [address] [place] [address] 3rd Floor, [address] [place] [address] Kiko Minor MD [address] [place] [address], [address] [place] [address] 06/07/2025 2:15 PM EDT Office Visit [address] [address] [facility], [address] [place] [address] [email or web address] Charan Jon, PT 4 [place] [address] 06/10/2025 4:00 PM EDT Office Visit [address] [place] [address] [facility] [address], [address] [place] [address] [email or web address] 06/14/2025 2:15 PM EDT Office Visit [address] [address] [facility] [address], [address] [place] [address] [email or web address] Charan Jon, PT 4 [place] [address] 06/21/2025 2:15 PM EST Office Visit [address] [address] [facility] [address], [address] [place] [address] [email or web address] Charan Jon, PT 4 [place] [address] 07/18/2025 2:30 PM EST Office Visit [facility]umatology [address] [place] [address] [place] [address] Janina Donohue MD 22 [facility], [address] [place] [address] [email or web address] 07/26/2025 3:00 PM EST Ancillary Procedure [facility] 22 [facility] 3rd Floor, [address] [place] [address] Brennan Childers MD 22 [facility], [address] [place] [address] [email or web address] documented as of this encounter Visit Diagnoses Not on filedocumented in this encounter Additional Health Concerns Infection Onset Date Last Indicated Resolved Time CoV-Risk 09/21/2024 09/21/2024 09/21/2024 2:57 PM EST COVID-19 09/21/2024 09/21/2024 10/12/2024 1:21 AM EST Assessment Noted Time PHQ-2 Depression Total Score: 2 12/16/19 19 1:37 PM EDT documented as of this encounter Care Teams Processing Analyst Relationship Specialty Start Date End Date Lisa Duff MD [address] [place] [address] [email or web address] PCP - General Family Medicine 07/04/20 03/11/21 Lisa Duff MD [address] [place] [address] [email or web address] PCP - General Family Medicine 03/12/21 03/06/23 Martin Wright DO [address] [address] PCP - General Family Medicine 03/07/23 08/20/23 Dahiana Fabian 22 [facility], [address] [place] [address] [email or web address] PCP - General Family Medicine 08/21/23 Vesna Umana NP [address] [place] [address] [address] [place] [address] Historical LMR Provider 06/05/17 2 Bianca Regan MD 22 [facility], [address] [place] [address] Historical LMR Provider 06/05/17 08/25/21 Robyn Aguayo MD [address] [place] [address] [email or web address] Insurance Assigned Provider 11/24/19 08/26/20 Clary Morgan MD [address] [address] Gastroenterology 11/15/24 documented as of this encounter Additional Source Comments The information contained in this document represents components of the legal health record. It is not the complete legal health record.[facility]
--- OUTSIDE RECORDS SUMMARY | 2025-05-11 14:46 | XMS_ITS | Encounter Summary ---
Author Organization [facility] Address [address] [place] [address] Phone Care Team Providers Care Transformer Assembly Supervisor Name Role Phone Dong [place] NP Unavailable [phone] Bianca Regan MD Unavailable Nestor Louis DO Primary Care Provider [phone] Robyn Aguayo MD Unavailable [phone] Lisa Duff MD Primary Care Provider [phone] Lisa Duff MD Primary Care Provider [phone] Martin Wright DO Primary Care Provider [phone] Dahiana Fabian Primary Care Provider [phone] Clary Morgan MD Unavailable [phone] Encounter Details Date Type Department Care Team (Latest Contact Info) Description 09/13/2019 Transcribe Orders Virtual Department 30 [place], [place] [id number] Chase Matthew MD [address] [place] [address], [address] [place], [place] [id number] [email or web address] TIA (transient ischemic attack) (Primary Dx) Social History Tobacco Use Types Packs/Day Years [...] Description 05/17/2025 1:30 PM EDT Office Visit [address] [address] Jude Fabiania [address] [place] [address], [address] [place] [address] [email or web address] Charan Jon, PT 4 [place] [address] 05/24/2025 2:15 PM EDT Office Visit [address] [phone] Jude Fabiania [address] [place] [address], [address] [place] [address] [email or web address] Charan Jon, PT 4 [place], [place] [id number] 05/31/2025 2:15 PM EDT Office Visit [address] [id number] Dahiana Fabian [address] [place] [address], [address] [place] [address] [email or web address] Charan Jon, PT 4 [place], [place] [id number] 06/06/2025 1:20 PM EDT Ancillary Procedure [facility] [address] [place] [address] Dr 3rd Floor, [address] [place] [address] Kiko Minor MD 22 [facility], [address] [place] [address] 06/07/2025 2:15 PM EDT Office Visit [address] [address] [facility] [address], [address] [place] [address] [email or web address] Charan Jon, PT 4 [place] [address] 06/10/2025 4:00 PM EDT Office Visit [address] [place] [address] Flum-Kristian [address], [address] [place] [address] [email or web address] 06/14/2025 2:15 PM EDT Office Visit [address] [address] [address], [address] [place] [address] [email or web address] Charan Jon, PT 4 [place], [place] [phone] 06/21/2025 2:15 PM EST Office Visit [address] [address] Flum-Kristian [address], [address] [place] [address] [email or web address] Charan Jon, PT 4 [place] [address] 07/18/2025 2:30 PM EST Office Visit [facility] Rheumatology [address] [place] [address] Janina Donohue MD 22 [facility], [address] [place] [address] [email or web address] 07/26/2025 3:00 PM EST Ancillary Procedure [facility] 22 [facility] 3rd Floor, [address] [place] [address] Brennan Childers MD 22 [facility], [address] [place] [address] [email or web address] documented as of this encounter Results * US Carotid Duplex Complete (Bilateral) (09/22/2019 2:02 PM EST) Anatomical Region Laterality Modality Heart, Thoracic Vasculature, Neck Ultrasound 09/22/2019 2:03 PM EST Impressions 09/22/2019 2:05 PM EST 1. No hemodynamically significant right internal carotid artery stenosis. Moderate left internal carotid artery stenosis corresponding to 50-69% stenosis which is on the lower end of the range. 2. Bilateral antegrade vertebral artery flow. POS - [id number] Narrative 09/22/2019 2:05 PM EST COMPARISON:None. CAROTID ULTRASOUND FINDINGS: RIGHT: Peak external carotid artery: 97 cm/sec Peak vertebral: 47 cm/sec and antegrade Carotid artery morphology: Mild bulb intimal thickening. No significant plaque. Peak common carotid artery: 76/28 cm/sec Peak internal carotid artery: 93/32 cm/sec Normal peak systolic ratio. LEFT: Peak external carotid artery: 72 cm/sec Peak vertebral: 42 cm/sec and antegrade Carotid artery morphology: No significant plaque. Peak common carotid artery: 112/42 cm/sec Peak internal carotid artery: 128/48 cm/sec Normal peak systolic ratio. Any stenosis measurement is relative to the distal ICA diameters. Procedure Note Guerrero Cueva MD - 09/22/2019 COMPARISON:None. CAROTID ULTRASOUND FINDINGS: RIGHT: Peak external carotid artery: 97 cm/sec Peak vertebral: 47 cm/sec and antegrade Carotid artery morphology: Mild bulb intimal thickening. No significantplaque. Peak common carotid artery: 76/28 cm/sec Peak internal carotid artery: 93/32 cm/sec Normal peak systolic ratio. LEFT: Peak external carotid artery: 72 cm/sec Peak vertebral: 42 cm/sec and antegrade Carotid artery morphology: No significant plaque. Peak common carotid artery: 112/42 cm/sec Peak internal carotid artery: 128/48 cm/sec Normal peak systolic ratio. Any stenosis measurement is relative to the distal ICA diameters. IMPRESSION: 1. No hemodynamically significant right internal carotid artery stenosis.Moderate left internal carotid artery stenosis corresponding to 50-69%stenosis which is on the lower end of the range. 2. Bilateral antegrade vertebral artery flow. POS - [id number] Chase Matthew MD US NEUROVASCULAR Final Re sult documented in this encounter Visit Diagnoses Diagnosis TIA (transient ischemic attack)- Primary Unspecified transient cerebral ischemia TIA (transient ischemic attack) Unspecified transient cerebral ischemia documented in this encounter Additional Health Concerns Infection Onset Date Last Indicated Resolved Time CoV-Risk 09/21/2024 09/21/2024 09/21/2024 2:57 PM EST COVID-19 09/21/2024 09/21/2024 10/12/2024 1:21 AM EST Assessment Noted Time PHQ-2 Depression Total Score: 2 12/16/19 19 1:37 PM EDT documented as of this encounter Care Teams Transformer Assembly Supervisor Relationship Specialty Start Date End Date Nestor Louis DO [address] [place] [address] [email or web address] PCP - General Family Medicine 08/20/19 07/03/20 Lisa Duff MD [address] [place] [address] [email or web address] PCP - General Family Medicine 07/04/20 03/11/21 Lisa Duff MD [address] [place] [address] [email or web address] PCP - General Family Medicine 03/12/21 03/06/23 Martin Wright DO [address] [address] PCP - General Family Medicine 03/07/23 08/20/23 Dahiana Fabian [address] [place] [address], [address] [place] [address] [email or web address] PCP - General Family Medicine 08/21/23 Vesna Umana NP [address] [place] [address] [place] [address] [email or web address] Historical LMR Provider 06/05/17 Bianca Gamboa MD [address] [place] [address] Historical LMR Provider 06/05/17 08/25/21 Robyn Aguayo MD [address] [place] [address] [email or web address] Insurance Assigned Provider 11/24/19 08/26/20 Clary Morgan MD [address] [address] [email or web address] Gastroenterology 11/15/24 documented as of this encounter Additional Source Comments The information contained in this document represents components of the legal health record. It is not the complete legal health record.[facility]
--- OUTSIDE RECORDS SUMMARY | 2025-05-11 14:47 | XMS_ITS | Encounter Summary ---
Author Organization [facility] Address [address] [place] [address] Phone Care Team Providers Care Ditching Machine Operating Engineer Name Role Phone Dong Wayne NP Unavailable [phone] Bianca Regan MD Unavailable Robyn Aguayo MD Unavailable [phone] Lisa Duff MD Primary Care Provider [phone] Lisa Duff MD Primary Care Provider [phone] Martin Wright DO Primary Care Provider Dahiana Fabian Primary Care Provider Clary Morgan MD Unavailable [phone] Encounter Details Date Type Department Care Team (Late st Contact Info) Description 07/18/2020 Ancillary Orders [facility],Outside Imaging 30 [place], [place] [phone] System, Provider Not In, PhD Partners [address] [address] Social History Tobacco Use Types Packs/Day Years [...] 05/17/2025 1:30 PM EDT Office Visit [address] [address] Dahiana Fabian [address] [place] [address], [address] [place] [address] [email or web address] Charan Jon, PT 4 [place], [place] [id number] 05/24/2025 2:15 PM EDT Office Visit [address] [address] Dahiana Fabian [address] [place] [address], [address] [place] [address] [email or web address] Cahran Jon, PT 4 [place], [place] [phone] 05/31/2025 2:15 PM EDT Office Visit [address] [address] Dahiana Fabian [address] [place] [address], [address] [place] [address] [email or web address] Charan Jon, PT 4 [place], [place] [id number] 06/06/2025 1:20 PM EDT Ancillary Procedure [facility] [address] [place] [address] 3rd Floor, [address] [place] [address] Kiko Minor MD [address] [place] [address], [address] [place] [address] 06/07/2025 2:15 PM EDT Office Visit [address] [address] [facility] Dan[facility] [address] [place] [address], [address] [place] [address] [email or web address] Charan Jon, PT 4 [place] [address] 06/10/2025 4:00 PM EDT Office Visit [address] [address] [facility] D[address], [address] [place] [address] [email or web address] 06/14/2025 2:15 PM EDT Office Visit [address] [address] [facility] [address], [address] [place] [address] [email or web address] Charan Jon, PT 4 [place] [address] 06/21/2025 2:15 PM EST Office Visit [address] [address] [facility] [address], [address] [place] [address] [email or web address] Charan Jon, PT 4 [place] [address] 07/18/2025 2:30 PM EST Office Visit [facility] Rheumatology [address] [place] [address] Janina Donohue MD 22 [facility], [address] [place] [address] [email or web address] 07/26/2025 3:00 PM EST Ancillary Procedure [facility] [address] 3rd Floor, [address] [place] [address] Brennan Childers MD 22 [facility], [address] [place] [address] [email or web address] documented as of this encounter Results * CT Abdomen/Pelvis Outside (No Interpretation) (05/31/2020 12:00 AM EDT) Narrative SYSTEMGENERATED, DOCUMENTATION - 07/18/2020 9:06 AM EST This study is for PACS storage only [...] documented as of this encounter Care Teams Ditching Machine Operating Engineer Relationship Specialty Start Date End Date Lisa Duff MD [address] [place] [address] [email or web address] PCP - General Family Medicine 07/04/20 03/11/21 Lisa Duff MD [address] [place] [address] [email or web address] PCP - General Family Medicine 03/12/21 03/06/23 Martin Wright DO [address] [facility] [address] [place] [address] PCP - General Family Medicine 03/07/23 08/20/23 Dunia-Dahiana Townsend 22 [facility], [address] [place] [address] [email or web address] PCP - General Family Medicine 08/21/23 Vesna Umana NP [address] [place] [address] [address] [place] [address] Historical LMR Provider 06/05/17 1 2 Bianca Regan MD 22 [facility], [address] [place] [address] Historical LMR Provider 06/05/17 08/25/21 Robyn Aguayo MD [address] [place] [address] [email or web address] Insurance Assigned Provider 11/24/19 08/26/20 Clary Morgan MD [address] [place] [address] [place] [address] Gastroenterology 11/15/24 documented as of this encounter Additional Source Comments The information contained in this document represents components of the legal health record. It is not the complete legal health record.[facility]
--- OUTSIDE RECORDS SUMMARY | 2025-05-11 14:47 | XMS_ITS | Encounter Summary ---
Author Organization [facility] Address [address] [place] [address] Phone Care Team Providers Care Commercial Lease Administrator Name Role Phone DongVesnaLake [place] NP Unavailable [phone] Bianca Regan MD Unavailable Lisa Duff MD Primary Care Provider [phone] Lisa Duff MD Primary Care Provider [phone] Martin Wright DO Primary Care Provider Dahiana Fabian Primary Care Provider Clary Morgan MD Unavailable [phone] Encounter Details Date Type Department Care Team (Late st Contact Info) Description 12/25/2020 Procedure Pass [facility], [address] [address] Social History Tobacco Use Types Packs/Day Years [...] Description 05/17/2025 1:30 PM EDT Office Visit [address] [address] Dahiana Fabian [address] [place] [address], [address] [place] [address] [email or web address] Charan Jon, PT 4 [place], [place] [phone] 05/24/2025 2:15 PM EDT Office Visit [address] [address] Dahiana Fabian [address] [place] [address], [address] [place] [address] [email or web address] Charan Jon, PT 4 [place], [place] [phone] [email or web address] 05/31/2025 2:15 PM EDT Office Visit [address] [address] Dahiana Fabian [address] [place] [address], [address] [place] [address] [email or web address] Charan Jon, PT 4 [place], [place] [phone] 06/06/2025 1:20 PM EDT Ancillary Procedure [facility] [address] [place] [address] 3rd Floor, [address] [place] [address] Kiko Minor MD 22 [facility], [address] [place] [address] 06/07/2025 2:15 PM EDT Office Visit [address] [address] [address]Dahiana [address] [place] [address], [address] [place] [address] [email or web address] Charan Jon, PT 4 [place] [address] 06/10/2025 4:00 PM EDT Office Visit [address] [place] [address], [address] [place] [address] [email or web address] 06/14/2025 2:15 PM EDT Office Visit [address] [address] [facility] [address], [address] [place] [address] [email or web address] Charan Jon, PT 4 [place] [address] 06/21/2025 2:15 PM EST Office Visit [address] [address] Rui Dahiana [address] [place] [address], [address] [place] [address] [email or web address] Charan Jon, PT 4 [place] [address] [email or web address] 07/18/2025 2:30 PM EST Office Visit [facility] [address] [place] [address] Janina Donohue MD 22 [facility], [address] [place] [address] [email or web address] 07/26/2025 3:00 PM EST Ancillary Procedure [facility] [address] [place] [address] Dr 3rd Floor, [address] [place] [address] Brennan Childers MD 22 [facility], [address] [place] [address] [email or web address] documented as of this encounter Visit Diagnoses Not on filedocumented in this encounter Additional Health Concerns Infection Onset Date Last Indicated Resolved Time CoV-Risk 09/21/2024 09/21/2024 09/21/2024 2:57 PM EST COVID-19 09/21/2024 09/21/2024 10/12/2024 1:21 AM EST Assessment Noted Time PHQ-2 Depression Total Score: 2 12/16/19 19 1:37 PM EDT documented as of this encounter Care Teams Commercial Lease Administrator Relationship Specialty Start Date End Date Lisa Duff MD [address] [address] [email or web address] PCP - General Family Medicine 07/04/20 03/11/21 Lisa Duff MD [address] [place] [address] [email or web address] PCP - General Family Medicine 03/12/21 03/06/23 Martin Wright DO [facility] [address] [address] PCP - General Family Medicine 03/07/23 08/20/23 Dunia-Dahiana Townsend [address] [place] [address], [address] [place] [address] PCP - General Family Medicine 08/21/23 Vesna Umana NP [address] [place] [address] [address] [place] [address] Historical LMR Provider 06/05/17 2 Bianca Regan MD [address] [place] [address], [address] [place] [address] Historical LMR Provider 06/05/17 08/25/21 Clary Morgan MD [address] [address] Gastroenterology 11/15/24 documented as of this encounter Additional Source Comments The information contained in this document represents components of the legal health record. It is not the complete legal health record.[facility]
--- OUTSIDE RECORDS SUMMARY | 2025-05-11 14:47 | XMS_ITS | Encounter Summary ---
Author Organization [facility] Address [address] [place] [address] Phone Care Team Providers Care Truckman Name Role Phone DongVesnaMack[place] NP Unavailable [phone] Bianca Regan MD Unavailable Lisa Duff MD Primary Care Provider [phone] Lisa Duff MD Primary Care Provider [phone] Martin Wright DO Primary Care Provider Dahiana Fabian Primary Care Provider [phone] Clary Morgan MD Unavailable [phone] Encounter Details Date Type Department Care Team (Latest Contact Info) Description 01/22/2021 Transcribe Orders Virtual Department 30 [place] [address] Lalit Murillo MD [address] [place] [phone] Gastroesophageal reflux disease, unspecified whether esophagitis present (Primary Dx) Social History Tobacco Use Types [...] Description 05/17/2025 1:30 PM EDT Office Visit [address] [address] Dahiana Fabian [address] [place] [address], [address] [place] [address] [email or web address] Charan Jon, PT 4 [place], [place] [phone] [email or web address] 05/24/2025 2:15 PM EDT Office Visit [address] [address] Dahiana Fabian [address] [place] [address], [address] [place] [address] [email or web address] Charan Jon, PT 4 [place], [place] [phone] [email or web address] 05/31/2025 2:15 PM EDT Office Visit [address] [phone] Daihana Fabian [address] [place] [address], [address] [place] [address] [email or web address] Charan Jon, PT 4 [place], [place] [phone] [email or web address] 06/06/2025 1:20 PM EDT Ancillary Procedure [facility] [address] [place] [address] 3rd Floor, [address] [place], [place] 8163860 Kiko Minor MD 22 [facility], [address] [place] [address] 06/07/2025 2:15 PM EDT Office Visit [address] [address] [facility] [address], [address] [place] [address] [email or web address] Charan Jon, PT 4 [place] [address] [email or web address] 06/10/2025 4:00 PM EDT Office Visit [address] [address] [facility] [address], [address] [place] [address] [email or web address] 06/14/2025 2:15 PM EDT Office Visit [address] [address] [facility] [address], [address] [place] [address] [email or web address] Charan Jon, PT 4 [place] [address] 06/21/2025 2:15 PM EST Office Visit [address] [address] [address], [address] [place] [address] [email or web address] Charan Jon, PT 4 [place] [address] [email or web address] 07/18/2025 2:30 PM EST Office Visit [facility] Rheumatology [address] [place] [address] Janina Donohue MD 22 [facility], [address] [place] [address] [email or web address] 07/26/2025 3:00 PM EST Ancillary Procedure [facility] [address] 3rd Floor, [address] [place] [address] Brennan Childers MD 22 [facility], [address] [place] [address] [email or web address] documented as of this encounter Visit Diagnoses Diagnosis Gastroesophageal reflux disease, unspecified whether esophagitis present- Primary documented in this encounter Additional Health Concerns Infection Onset Date Last Indicated Resolved Time CoV-Risk 09/21/2024 09/21/2024 09/21/2024 2:57 PM EST COVID-19 09/21/2024 09/21/2024 10/12/2024 1:21 AM EST Assessment Noted Time PHQ-2 Depression Total Score: 2 12/16/19 19 1:37 PM EDT documented as of this encounter Care Teams Truckman Relationship Specialty Start Date End Date Lisa Duff MD [address] [place] [address] . org PCP - General Family Medicine 07/04/20 03/11/21 Lisa Duff MD [address] [place] [address] . org PCP - General Family Medicine 03/12/21 03/06/23 Martin Wright DO [address] [address] PCP - General Family Medicine 03/07/23 08/20/23 Dahiana Fabian 22 [facility], [address] [place] [address] PCP - General Family Medicine 08/21/23 Vesna Umana NP [address] [place] [address] [address] [place] [address] Historical LMR Provider 06/05/17 2 Bianca Regan MD 22 [facility], [address] [place] [address] Historical LMR Provider 06/05/17 08/25/21 Clary Morgan MD [address] [facility] [place] 5 [place] [address] Gastroenterology 11/15/24 documented as of this encounter Additional Source Comments The information contained in this document represents components of the legal health record. It is not the complete legal health record.[facility]
--- OUTSIDE RECORDS SUMMARY | 2025-05-11 14:47 | XMS_ITS | Encounter Summary ---
Author Organization [facility] Address [address] [facility] [address] [place] [address] Phone Care Team Providers Care Computer Programmer Analyst Name Role Phone DongVesnaWinona NP Unavailable [phone] Bianca Regan MD Unavailable Lisa Duff MD Primary Care Provider [phone] Martin Wright DO Primary Care Provider [phone] Dahiana Fabian Primary Care Provider Clary Morgan MD Unavailable [phone] Encounter Details Date Type Department Care Team (Late st Contact Info) Description 07/30/2021 Telephone Anika [facility] [address] [place], [place] [phone] Xochitl Irizarry MD 22 [facility], [address] [place] [address] Social History Tobacco Use Types Packs/Day Years [...] Description 05/17/2025 1:30 PM EDT Office Visit [address] [address] Dahiana Fabian [address] [place] [address], [address] [place] [address] [email or web address] Charan Jon, PT 4 [place], [place] [id number] 05/24/2025 2:15 PM EDT Office Visit [address] [address] Dahiana Fabian [address] [place] [address], [address] [place] [address] [email or web address] Charan Jon, PT 4 [place], [place] [phone] 05/31/2025 2:15 PM EDT Office Visit [address] [address] Dahiana Fabian [address] [place] [address], [address] [place] [address] [email or web address] Charan Jon, PT 4 [place] [address] 06/06/2025 1:20 PM EDT Ancillary Procedure [facility] [address] [place] [address] 3rd Floor, [address] [place] [address] Kiko Minor MD 22 [facility], [address] [place] [address] 06/07/2025 2:15 PM EDT Office Visit [address] [address] [facility] [address], [address] [place] [address] [email or web address] Charan Jon, PT 4 [place] [address] 06/10/2025 4:00 PM EDT Office Visit [address] [address] [facility] [address], [address] [place] [address] [email or web address] 06/14/2025 2:15 PM EDT Office Visit [address] [address] [facility] [address], [address] [place] [address] [email or web address] Charan Jon, PT 4 [place] [address] 06/21/2025 2:15 PM EST Office Visit [address] [address] [facility] [address], [address] [place] [address] [email or web address] Charan Jon, PT 4 [place] [address] 07/18/2025 2:30 PM EST Office Visit [facility] [address] [place] [address] Janina Donohue MD 22 [facility], [address] [place] [address] [email or web address] 07/26/2025 3:00 PM EST Ancillary Procedure [facility] 22 [facility] 3rd Floor, [address] [place] [address] Brennan Childers MD 22 [facility], [address] [place] [address] [email or web address] documented as of this encounter Visit Diagnoses Not on filedocumented in this encounter Additional Health Concerns Infection Onset Date Last Indicated Resolved Time CoV-Risk 09/21/2024 09/21/2024 09/21/2024 2:57 PM EST COVID-19 09/21/2024 09/21/2024 10/12/2024 1:21 AM EST Assessment Noted Time PHQ-2 Depression Total Score: 2 12/16/19 19 1:37 PM EDT documented as of this encounter Care Teams Computer Programmer Analyst Relationship Specialty Start Date End Date Lisa Duff MD [address] [place] [address] [email or web address] PCP - General Family Medicine 03/12/21 03/06/23 Martin Wright DO [address] [address] PCP - General Family Medicine 03/07/23 08/20/23 Dahiana Fabian [address] [place] [address], [address] [place] [address] [email or web address] PCP - General Family Medicine 08/21/23 Vesna Umana NP [address] [place] [address] [address] [place] [address] [email or web address] Historical LMR Provider 06/05/17 2 Bianca Regan MD 22 [facility], [address] [place] [address] [email or web address] Historical LMR Provider 06/05/17 08/25/21 Clary Morgan MD [address] [address] [email or web address] Gastroenterology 11/15/24 documented as of this encounter Additional Source Comments The information contained in this document represents components of the legal health record. It is not the complete legal health record.[facility]
--- OUTSIDE RECORDS SUMMARY | 2025-05-11 14:47 | XMS_ITS | Encounter Summary ---
Author Organization [facility] Address [address] [place] [address] Phone Care Team Providers Care Enterprise Systems Engineer Name Role Phone DongVesnaDanforth NP Unavailable [phone] Bianca Regan MD Unavailable Lisa Duff MD Primary Care Provider [phone] Martin Wright DO Primary Care Provider Dahiana Fabian Primary Care Provider Clary Morgan MD Unavailable [phone] Encounter Details Date Type Department Care Team (Late st Contact Info) Description 06/01/2021 Procedure Pass [facility], [address] [address] Social History Tobacco Use Types Packs/Day Years [...] 05/17/2025 1:30 PM EDT Office Visit [address] [address] Dahiana Fabian [address] [place] [address], [address] [place] [address] [email or web address] Charan Jon, PT 4 [place] [address] 05/24/2025 2:15 PM EDT Office Visit [address] [address] Dahiana Fabian [address] [place] [address], [address] [place] [address] [email or web address] Charan Jon, PT 4 [place] [address] 05/31/2025 2:15 PM EDT Office Visit [address] [address] Dahiana Fabian [address] [place] [address], [address] [place] [address] [email or web address] Charan Jon, PT 4 [place] [address] 06/06/2025 1:20 PM EDT Ancillary Procedure [facility] [address] [place] [address] 3rd Floor, [address] [place] [address] Kiko Minor MD [address] [place] [address], [address] [place] [address] 06/07/2025 2:15 PM EDT Office Visit [address] [address] Jude Fabiania [address] [place] [address], [address] [place] [address] [email or web address] Charan Jon, PT 4 [place] [address] 06/10/2025 4:00 PM EDT Office Visit [address] [place] [address] Dahiana Fabian [address] [place] [address], [address] [place] [address] [email or web address] 06/14/2025 2:15 PM EDT Office Visit [address] [address] [facility] [address], [address] [place] [address] [email or web address] Charan Jon, PT 4 [place] [address] 06/21/2025 2:15 PM EST Office Visit [address] [address] [facility] Schreiber [address] [place] [address], [address] [place] [address] [email or web address] Charan Jon, PT 4 [place] [address] 07/18/2025 2:30 PM EST Office Visit [facility] Rheumatology [address] [place] [address] [place] [address] Janina Donohue MD [address] [facility], [address] [place] [address] [email or web address] 07/26/2025 3:00 PM EST Ancillary Procedure [facility] [address] 3rd Floor, [address] [place] [address] Brennan Childers MD [address] [facility], [address] [place] [address] [email or web address] documented as of this encounter Visit Diagnoses Not on filedocumented in this encounter Additional Health Concerns Infection Onset Date Last Indicated Resolved Time CoV-Risk 09/21/2024 09/21/2024 09/21/2024 2:57 PM EST COVID-19 09/21/2024 09/21/2024 10/12/2024 1:21 AM EST Assessment Noted Time PHQ-2 Depression Total Score: 2 12/16/19 19 1:37 PM EDT documented as of this encounter Care Teams Enterprise Systems Engineer Relationship Specialty Start Date End Date Lisa Duff MD [address] [place] [address] [email or web address] PCP - General Family Medicine 03/12/21 03/06/23 Martin Wright DO [address] [facility] [address] [place] [address] PCP - General Family Medicine 03/07/23 08/20/23 Dahiana Fabian [address] [facility], [address] [place] [address] [email or web address] PCP - General Family Medicine 08/21/23 Vesna Umana NP [address] [place] [address] [address] [place] [address] Historical LMR Provider 06/05/17 2 Bianca Regan MD 22 [facility], [email or web address] [address] [place] [address] [email or web address] Historical LMR Provider 06/05/17 08/25/21 Clary Morgan MD [address] [address] [email or web address] Gastroenterology 11/15/24 documented as of this encounter Additional Source Comments The information contained in this document represents components of the legal health record. It is not the complete legal health record.[facility]
--- OUTSIDE RECORDS SUMMARY | 2025-05-11 14:47 | XMS_ITS | Encounter Summary ---
Author Organization [facility] Address [address] [place] [address] Phone Care Team Providers Care Broke Handler Name Role Phone Vesna Umana NP Unavailable [phone] Bianca Regan MD Unavailable Lisa Duff MD Primary Care Provider Martin Wright DO Primary Care Provider [phone] Dahiana Fabian Primary Care Provider [phone] Clary Morgan MD Unavailable [phone] Reason for Referral * MRI/CAT Scan - Closed Specialty Diagnoses / Procedures Referred By [facility] t Referred To Contact Radiology Diagnoses Sacroiliitis, not elsewhere classified Procedures MRI Pelvis (GI/) Satya Junior DO Phone: tel: fax: [email or web address] Referral ID Status Reason Start Date Expiration Date Visits Re quested Visits Authorized [id number] Closed 06/01/2021 06/01/2022 1 1 Encounter Details Date Type Department Care Team (Latest Contact Info) Description 06/01/2021 Transcribe Orders [facility] Department [address] [place] [address] Satya Junior, DO [address] [place] [address] [email or web address] Sacroiliitis, not elsewhere classified (Primary Dx) Social History Tobacco Use Types [...] 05/17/2025 1:30 PM EDT Office Visit [address] [address] Dahiana Fabian [address] [place] [address], [address] [place] [address] [email or web address] Charan Jon, PT 4 [place] [address] [email or web address] 05/24/2025 2:15 PM EDT Office Visit [address] [address] Dahiana Fabian [address] [place] [address], [address] [place] [address] [email or web address] Charan Jon, PT 4 [place], [place] [phone] [email or web address] 05/31/2025 2:15 PM EDT Office Visit [address] [phone] Dahiaan Fabian [address] [place] [address], [address] [place] [address] [email or web address] Charan Jon, PT 4 [place] [address] 06/06/2025 1:20 PM EDT Ancillary Procedure [facility] [address] [place] [address] Dr 3rd Floor, [address] [place] [address] Kiko Minor MD 22 [facility], [address] [place] [address] 06/07/2025 2:15 PM EDT Office Visit [address] [address] Dahiana Fabian [address] [place] [address], [address] [place] [address] [email or web address] Charan Jon, PT 4 [place] [address] [email or web address] 06/10/2025 4:00 PM EDT Office Visit [address] [address] Dahiana Fabian [address] [place] [address], [address] [place] [address] [email or web address] 06/14/2025 2:15 PM EDT Office Visit [address] [address] Dahiana Fabian [address] [place] [address], [address] [place] [address] [email or web address] Charan Jon, PT 4 [place] [address] [email or web address] 06/21/2025 2:15 PM EST Office Visit [facility] 4 [place], [place] [phone] Dahiana Fabian [address] [facility], [address] [place] [address] [email or web address] Charan Jon, PT 4 [place], [place] [phone] 07/18/2025 2:30 PM EST Office Visit [facility] Rheumatology [address] [place] [address] [place] [address] Janina Donohue MD [address] [place] [address], [address] [place] [address] [email or web address] 07/26/2025 3:00 PM EST Ancillary Procedure [facility] [address] [place] [address] Dr 3rd Floor, [address] [place] [address] Brennan Childers MD [address] [place] [address], [address] [place] [address] [email or web address] documented as of this encounter Results * MRI PELVIS WITHOUT CONTRAST (06/22/2021 7:01 PM EDT) Anatomical Region Laterality Modality Pelvis Magnetic Resonan ce 06/23/2021 7:33 AM EDT Impressions 06/23/2021 9:14 AM EDT 1.No evidence of acute sacroiliitis. Chronic ankylosis. 2.Left gluteus medius tendinopathy. 3.Bilateral proximal hamstring tendinopathy. 4.Progressive L4-5 and L5-S1 facet arthropathy with worsening moderate canal stenosis at L4-5. Narrative 06/23/2021 9:14 AM EDT COMPARISON: MRI pelvis 07/18/2020. CT pelvis 05/31/2020. TECHNIQUE: Exam performed on a 1.5 [employer] high-field MRI scanner. The following sequences were acquired through the sacrum and SI joints: Axial oblique T1 with and without fat-sat and STIR, coronal oblique T1 with and without fat- sat and T2 with fat suppression and coronal STIR without gadolinium. MRI SI JOINTS FINDINGS: Musculoskeletal: Stable mild L5-S1 disc disease. Progressive severe L4-5 facet arthropathy and ligamentum flavum hypertrophy contributing to moderate canal stenosis. Progressive moderate L5-S1 facet arthropathy. 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 No joint effusion, spurring or bone marrow edema. No destructive or suspicious bone lesions. Bilateral symmetric proximal hamstring tendon intermediate signal indicative of tendinopathy. There is hyperintense signal of the distal left gluteus medius medius musculotendinous junction at its insertion site on the greater trochanter. No fluid collection. Additional findings: No incidental findings of concern. Procedure Note Paul Corona MD - 06/23/2021 COMPARISON: MRI pelvis 07/18/2020. CT pelvis 05/31/2020. TECHNIQUE: Exam performed on a 1.5 Bel[employer] high-field MRI scanner. Thefollowing sequences were acquired through the sacrum and SI joints: Axialoblique T1 with and without fat-sat and STIR, coronal oblique T1 with andwithout fat-sat and T2 with fat suppression and coronal STIR withoutgadolinium. MRI SI JOINTS FINDINGS: Musculoskeletal: Stable mild L5-S1 disc disease. Progressive severe L4-5facet arthropathy and ligamentum flavum hypertrophy contributing tomoderate canal stenosis. 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 No joint effusion, spurring orbone marrow edema. No destructive or suspicious bone lesions. Bilateralsymmetric proximal hamstring tendon intermediate signal indicative oftendinopathy. There is hyperintense signal of the distal left gluteusmedius medius musculotendinous junction at its insertion site on thegreater trochanter. No fluid collection. Additional findings: No incidental findings of concern. IMPRESSION: 1.No evidence of acute sacroiliitis. Chronic ankylosis. 2.Left gluteus medius tendinopathy. 3.Bilateral proximal hamstring tendinopathy. 4.Progressive L4-5 and L5-S1 facet arthropathy with worsening moderatecanal stenosis at L4-5. Satya Junior DO IMG MR PELVIS Final Result documented in this encounter Visit Diagnoses Diagnosis Sacroiliitis, not elsewhere classified- Primary Sacroiliitis, not elsewhere classified documented in this encounter Additional Health Concerns Infection Onset Date Last Indicated Resolved Time CoV-Risk 09/21/2024 09/21/2024 09/21/2024 2:57 PM EST COVID-19 09/21/2024 09/21/2024 10/12/2024 1:21 AM EST Assessment Noted Time PHQ-2 Depression Total Score: 2 12/16/19 19 1:37 PM EDT documented as of this encounter Care Teams Broke Handler Relationship Specialty Start Date End Date Lisa Duff MD [address], [place] [address] [email or web address] PCP - General Family Medicine 03/12/21 03/06/23 Martin Wright DO [address] [place] [address] PCP - General Family Medicine 03/07/23 08/20/23 Dahiana Fabian [address] [place] [address], [address] [place] [address] [email or web address] PCP - General Family Medicine 08/21/23 Vesna Umana NP [address] [place] [address] [address] [place] [address] [email or web address] Historical LMR Provider 06/05/17 2 Bianca Regan MD [address] [place], [place] [address], [place] [address] [email or web address] Historical LMR Provider 06/05/17 08/25/21 Clary Morgan MD [address] [address] [email or web address] Gastroenterology 11/15/24 documented as of this encounter Additional Source Comments The information contained in this document represents components of the legal health record. It is not the complete legal health record.[facility]
--- OUTSIDE RECORDS SUMMARY | 2025-05-11 14:47 | XMS_ITS | Encounter Summary ---
Author Organization [facility] Address [address] [place] [address] Phone Care Team Providers Care Instrument Repairer Name Role Phone Lisa Duff MD Primary Care Provider [phone] Martin Wright DO Primary Care Provider Dahiana Fabian Primary Care Provider Clary Morgan MD Unavailable [phone] Encounter Details Date Type Department Care Team (Late st Contact Info) Description 02/17/2023 Procedure Pass [facility], [address] [address] Social History Tobacco Use Types Packs/Day Years [...] Description 05/17/2025 1:30 PM EDT Office Visit [address] [address] Dahiana Fabian [address] [place] [address], [address] [place] [address] [email or web address] Charan Jon, PT 4 [place], [place] [phone] 05/24/2025 2:15 PM EDT Office Visit [address] [address] Dahiana Fabian [address] [place] [address], [address] [place] [address] [email or web address] Charan Jon, PT 4 [place], [place] [phone] 05/31/2025 2:15 PM EDT Office Visit [address] [id number] Dahiana Fabian [address] [place] [address], [address] [place] [address] [email or web address] Charan Jon, PT 4 [place], [place] [phone] 06/06/2025 1:20 PM EDT Ancillary Procedure [facility] [address] [place] [address] 3rd Floor, [address] [place] [address] Kiko Minor MD [address] [place] [address], [address] [place] [address] 06/07/2025 2:15 PM EDT Office Visit [address] [address] Rui Dahiana [address] [place] [address], [address] [place] [address] [email or web address] Charan Jon, PT 4 [place] [address] 06/10/2025 4:00 PM EDT Office Visit [address] [address] [address], [address] [place] [address] [email or web address] 06/14/2025 2:15 PM EDT Office Visit [address] [address] [facility] [address], [address] [place] [address] [email or web address] Charan Jon, PT 4 [place] [address] 06/21/2025 2:15 PM EST Office Visit [address] [address] [facility] CenterchristopherKristian [address], [address] [place] [address] [email or web address] Charan Jon, PT 4 [place] [address] 07/18/2025 2:30 PM EST Office Visit [facility] Rheumatology [address] [place] [address] Janina Donohue MD 22 [facility], [address] [place] [address] [email or web address] 07/26/[email or web address] 3:00 PM EST Ancillary Procedure [facility] [address] 3rd Floor, [address] [place] [address] Brennan Childers MD 22 [facility], [address] [place] [address] [email or web address] documented as of this encounter Visit Diagnoses Not on filedocumented in this encounter Additional Health Concerns Infection Onset Date Last Indicated Resolved Time CoV-Risk 09/21/2024 09/21/2024 09/21/2024 2:57 PM EST COVID-19 09/21/2024 09/21/2024 10/12/2024 1:21 AM EST Assessment Noted Time PHQ-2 Depression Total Score: 2 12/16/19 19 1:37 PM EDT documented as of this encounter Care Teams Instrument Repairer Relationship Specialty Start Date End Date Lisa Duff MD [address] [place] [address] [email or web address] PCP - General Family Medicine 03/12/2103/06 Martin Wright DO [address] [address] PCP - General Family Medicine 03/07/23 08/20/23 Dahiana Fabian [address] [place] [address], [address] [place] [address] [email or web address] PCP - General Family Medicine 08/21/23 Clary Morgan MD [address] [address] [email or web address] Gastroenterology 11/15/24 documented as of this encounter Additional Source Comments The information contained in this document represents components of the legal health record. It is not the complete legal health record[facility]
== END 2025-05-11 11:49 | disposition home or self-care (01) ==
LOC: CF 11:48
DX: Z13.89 Encounter for screening for other disorder (principal)